=== PATIENT | male | born 1930 | race Caucasian/White ===

== ENCOUNTER 2016-07-08 20:01 | Inpatient (IN) | payer MEDICARE ==
[~2016-07-08] VITALS: Ht 188 cm; Wt 85.3 kg
[2016-07-08] MEDS ORDERED: PIP/TAZO PER PHARMACY MC PRN (20:30)
[2016-07-08] MEDS ORDERED: IV NORMAL SALINE 500ML BAG 500 ML IV ONE (20:45)
[2016-07-08] MEDS ORDERED: PIPERACILLIN/TAZOBACTAM 3.375 GM in IV NORMAL SALINE 50ML 50 ML IV ONE (21:00)
[2016-07-08] MEDS ORDERED: VANCOMYCIN 2 GM in IV NORMAL SALINE 500ML BAG 500 ML IV ONE (21:00)
--- NOTE | 2016-07-08 21:09 | PHYS DOC ---
Past Medical History Past Medical History: CHF, Dementia, Other Additional Past Medical Histor: tachycardia Past Surgical History: Other Additional Past Surgical Histo: unknown Alcohol Use: None Drug Use: None Adult General Chief Complaint Chief Complaint: WEAKNESS/GENERALIZED HPI HPI Patient is a 86 year old male who presents with lethargy, tachycardia. Patient sent from [facility] with report of increased lethargy, tachycardia, increased weakness. Patient has reportedly had intermittent tachycardia since January, for which he was recently started on metoprolol. Patient is demented and unable to contribute to history. Unable to get in contact with staff at [facility] for more information. Review of Systems Review of Systems Unable to obtain due to dementia Current Medications Current Medications Current Medications Medications (Trade) Dose Ordered Sig/Delta Start Time Stop Time Status Last Admin Dose Admin Piperacillin Sod/ Tazobactam Sod 3.375 gm/Sodium Chloride 50 ml @ 100 mls/hr 1X ONCE 07/08/16 21:00 07/08/16 21:29 DC 07/08/16 21:00 100 MLS/HR Piperacillin Sod/ Tazobactam Sod 1 each 1 each PRN DAILY PRN 07/08/16 20:30 Sodium Chloride 500 ml @ 500 mls/hr 1X ONCE 07/08/16 20:45 07/08/16 21:44 DC 07/08/16 21:22 500 MLS/HR Vancomycin HCl (Vanco Per Pharmacy) 1 each PRN DAILY PRN 07/08/16 20:30 Vancomycin HCl/ Sodium Chloride (Iv Sodium Chloride 0.9% 500ml Bag) 500 ml @ 250 mls/hr 1X ONCE 07/08/16 21:00 07/08/16 22:59 DC 07/08/16 21:00 250 MLS/HR Allergies Allergies Allergies Coded Allergies Type Severity Reaction Last Updated Verified No Known Drug Allergies 07/08/16 No Physical Exam Physical Exam Constitutional: Well developed, well nourished, non-toxic appearance HENT: Normocephalic, atraumatic, bilateral external ears normal Eyes: PERRL, EOMI, conjunctiva normal, no discharge Neck: Normal range of motion, no stridor Cardiovascular: Tachycardic, irregular rhythm, no murmur Lungs & Thorax: Bilateral breath sounds clear to auscultation Abdomen: Bowel sounds normal, soft, non-distended, no TTP; ostomy bag in place Skin: Warm, dry Extremities: No obvious deformity, trace BLE edema Neurologic: Alert and oriented to person and place only, GCS 15, CN II-XII grossly intact except for slight droop at L corner of mouth (resolves when smiling), strength intact and symmetrical throughout, sensation to light touch intact throughout Current Patient Data Vital Signs Vital Signs Date Time Temp Pulse Resp B/P Pulse Ox O2 Delivery O2 Flow Rate FiO2 07/08/16 20:02 99.7 137 18 132/76 91 Room Air 99.7 Lab Values Laboratory Tests Test 07/08/16 20:20 07/08/16 22:30 07/08/16 22:41 White Blood Count 12.1x10^3/uL (4.0-11.0) H Red Blood Count 4.04x10^6/uL (4.30-5.70) L Hemoglobin 12.5g/dL (13.0-17.5) L Hematocrit 38.8% (39.0-53.0) L Mean Corpuscular Volume 96fL (79-100) Mean Corpuscular Hemoglobin 31pg (25-35) Mean Corpuscular Hemoglobin Concent 32g/dL (31-37) Red Cell Distribution Width 15.5% (11.5-14.5) H Platelet Count 204x10^3/uL (140-400) Neutrophils (%) (Auto) 70% (31-73) Lymphocytes (%) (Auto) 14% (24-48) L Monocytes (%) (Auto) 15% (0-9) H Eosinophils (%) (Auto) 1% (0-3) Basophils (%) (Auto) 1% (0-3) Neutrophils # (Auto) 8.4x10^3uL (1.8-7.7) H Lymphocytes # (Auto) 1.6x10^3/uL (1.0-4.8) Monocytes # (Auto) 1.8x10^3/uL (0.0-1.1) H Eosinophils # (Auto) 0.1x10^3/uL (0.0-0.7) Basophils # (Auto) 0.1x10^3/uL (0.0-0.2) Sodium Level 142mmol/L (136-145) Potassium Level 4.1mmol/L (3.5-5.1) Chloride Level 106mmol/L (98-107) Carbon Dioxide Level 27mmol/L (21-32) Anion Gap 9 (6-14) Blood Urea Nitrogen 18mg/dL (8-26) Creatinine 1.3mg/dL (0.7-1.3) Estimated GFR (Cockcroft-Gault) 52.6 BUN/Creatinine Ratio 14 (6-20) Glucose Level 117mg/dL (70-99) H Lactic Acid Level 1.6mmol/L (0.4-2.0) Calcium Level 9.1mg/dL (8.5-10.1) Magnesium Level 2.1mg/dL (1.8-2.4) Total Bilirubin 0.8mg/dL (0.2-1.0) Aspartate Amino Transferase (AST) 33U/L (15-37) Alanine Aminotransferase (ALT) 15U/L (16-63) L Alkaline Phosphatase 99U/L (46-116) Troponin I Quantitative < 0.017ng/mL (0.000-0.055) RC-Vix-S-Type Natriuretic Peptide 1345pg/mL (0-449) H Total Protein 7.4g/dL (6.4-8.2) Albumin 2.7g/dL (3.4-5.0) L Albumin/Globulin Ratio 0.6 (1.0-1.7) L Thyroid Stimulating Hormone (TSH) 0.826uIU/mL (0.358-3.74) Influenza Type A Antigen Negative (NEGATIVE) Influenza Type B Antigen Negative (NEGATIVE) Urine Collection Type Unknown Urine Color Dk yellow Urine Clarity Clear Urine pH 5.5 Urine Specific [place] 1.020 Urine Protein Negativemg/dL (NEG-TRACE) Urine Glucose (UA) Negativemg/dL (NEG) Urine Ketones (Stick) Negativemg/dL (NEG) Urine Blood Trace (NEG) Urine Nitrite Negative (NEG) Urine Bilirubin Negative (NEG) Urine Urobilinogen Dipstick 1.0mg/dL (0.2 mg/dL) Urine Leukocyte Esterase Small (NEG) Urine RBC Rare/HPF (0-2) Urine WBC Occ/HPF (0-4) Urine Squamous Epithelial Cells Few/LPF Urine Bacteria 0/HPF (0-FEW) Urine Hyaline Casts Occasional/HPF Urine Mucus Mod/LPF Laboratory Tests 07/08/16 20:20 Laboratory Tests 07/08/16 20:20 EKG EKG EKG (my read): tachycardic, rate 118, normal axis, abnormal QRS, QTc 490ms, no acute ST elevation Radiology/Procedures Radiology/Procedures CXR (my read): Hazy opacity R lung base, mild cephalization Course & Med Decision Making Course & Med Decision Making Pertinent Labs and Imaging studies reviewed. (See chart for details) Patient is 86-year-old male who presents with complaint of lethargy and tachycardia. Patient demented and unable to contribute to history. Will check CT head, chest x-ray, labs to evaluate. Tachycardic and with borderline fever on exam. EKG shows possible A. fib with RVR, although he does appear regular with occasional dropped QRS. Possible Mobitz type I heart block (best seen in V1 ). I discussed this with Dr. Zepeda; no sign of infection, will try giving one 10 mg bolus of Cardizem but will not start drip. Discussed however, he does have leukocytosis as well as asymmetric chest x-ray concerning for pneumonia. Small fluid bolus and broad spectrum antibiotics ordered upon arrival. Heart rate did improve with these fluids. Discussed results with patient. Discussed with Dr. Herrera, will admit under her care for further evaluation and treatment. Will start low rate maintenance fluids; do not wish to fluid overload patient given history of CHF, and his blood pressure has been okay with normal lactic acid. Dragon Disclaimer Dragon Disclaimer This electronic medical record was generated, in whole or in part, using a voice recognition dictation system. Departure Departure Impression: Primary Impression: Pneumonia Additional Impression: Tachycardia Disposition: ADMITTED INPATIENT Admitting Physician: Other Condition: GUARDED Problem Qualifiers JOEL SMALLWOOD MD Jul 08, 2016 21:09
--- NOTE | 2016-07-08 21:20 | RAD ---
PROCEDURE CT head without contrast. HISTORY TECHNIQUE Noncontrast axial cross sectional CT scanning of the head was performed. FINDINGS There is marked diffuse cerebral and cerebellar atrophy. There is mild diffuse chronic white matter changes. There is encephalomalacia in the frontal lobes bilaterally. No acute intracranial hemorrhage or midline shift or mass-effect or hydrocephalus or extra-axial fluid collection is seen. No focal hypodense area is seen to indicate an acute infarct or edema radiographically. No skull fracture or pneumocephalus is seen. No opacification of the mastoid sinuses or the paranasal sinuses is seen. The maxillary sinuses are not completely seen in this study. 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 No acute findings. PQRS Statement: One or more of the following individualized dose reduction techniques were utilized for this study: 1. Automated exposure control. 2. Adjustment of the mA and/or kV according to patient size. 3. Use of iterative reconstruction technique. Electronically signed by: Ehsan Agosto MD (Jul 08, 2016 21:18:52)
[2016-07-08 21:40] LABS: BASO # 0.1 x10^3/uL (0.0-0.2); BASO % 1 % (0-3); EOS % 1 % (0-3); HEMATOCRIT 38.8 % (39.0-53.0); HEMOGLOBIN 12.5 g/dL (13.0-17.5); LYMPH # 1.6 x10^3/uL (1.0-4.8); LYMPH % 14 % (24-48); MEAN CORPUSCULAR HEMOGLOBIN 31 pg (25-35); MEAN CORPUSCULAR HGB CONC 32 g/dL (31-37); MEAN CORPUSCULAR VOLUME 96 fL (79-100); MONO % 15 % (0-9); NEUT % 70 % (31-73); PLATELET COUNT 204 x10^3/uL (140-400); RED BLOOD COUNT 4.04 x10^6/uL (4.30-5.70); RED CELL DISTRIBUTION WIDTH 15.5 % (11.5-14.5); WHITE BLOOD COUNT 12.1 x10^3/uL (4.0-11.0)
[2016-07-08 21:56] LABS: CALCIUM 9.1 mg/dL (8.5-10.1); CREATININE 1.3 mg/dL (0.7-1.3); GFR 52.6; POTASSIUM 4.1 mmol/L (3.5-5.1)
[2016-07-08 22:02] LABS: ALBUMIN 2.7 g/dL (3.4-5.0); ALBUMIN/GLOBULIN RATIO 0.6 (1.0-1.7); MAGNESIUM 2.1 mg/dL (1.8-2.4); TOTAL BILIRUBIN 0.8 mg/dL (0.2-1.0); TOTAL PROTEIN 7.4 g/dL (6.4-8.2)
[2016-07-08 22:49] LABS: BILIRUBIN,URINE NEGATIVE (NEG); GLUCOSE,URINE NEGATIVE (NEG); NITRITE,URINE NEGATIVE (NEG); PH,URINE 5.5; PROTEIN,URINE NEGATIVE (NEG-TRACE)
[2016-07-08 22:52] LABS: OBC FLU VALID
[2016-07-08] MEDS ORDERED: ACETAMINOPHEN 325 MG TABLET. PO PRN (23:00)
[2016-07-08] MEDS ORDERED: ONDANSETRON PF 4 MG/2 ML VIAL. IV PRN (23:00)
[2016-07-08] MEDS ORDERED: MORPHINE SULFATE 2 MG/ML DISP.SYRIN. IV PRN (23:00)
[2016-07-08 23:05] LABS: BACTERIA,URINE 0 /HPF (0-FEW); RBC,URINE RARE /HPF (0-2); SQUAMOUS EPITHELIAL CELL,UR FEW /LPF; WBC,URINE OCC /HPF (0-4)
[2016-07-09] VITALS (7 sets, daily range): BP systolic 118–176; BP diastolic 64–90
[2016-07-09] MEDS ORDERED: METO25TA4 PO (01:44)
[2016-07-09] MEDS ORDERED: AMLO5TAB2 PO (01:44)
--- NOTE | 2016-07-09 01:44 | ACF ---
Admit Criteria Forms Admit Criteria Forms Admit Criteria Forms PNEUMONIA, COMMUNITY ACQUIRED Clinical Indications for Admission to Inpatient Care ( Place 'X' for any and all applicable criteria): Admission is indicated for ANY ONE of the following (1)(2)(3): [ ]I. Hypoxemia indicated by ANY ONE of the following: [ ]a) Oxygen saturation less than 90% while breathing room air [ ]b) PO2 less than 60 mm Hg (8.0 kPa) while breathing room air [ ]c) Chronic lung disease with significant deterioration from baseline oxygenation [ ]II. Appropriate diagnostic testing and treatment unavailable in outpatient or recovery facility (eg,testing or infection control measures unavailable(10) [X ]III. Moderate-risk or high-risk category patients (Pneumonia Severity Index (PSI) class IV or V, or CURB-65 score of 3 or greater). [ ]IV. Outpatient treatment failure as indicated by ANY ONE of the following(9) : [ ]a) Failure to respond to antibiotic (eg, resistant organism) [ ]b) Clinically significant adverse effects from medication (eg, vomiting) [ ]c) Complications of pneumonia (eg, empyema, bacteremia) [ ]d) Significant worsening of comorbid cond necessitating inpatient care (eg, chronic heart failure) [ ]V. Intermediate-risk category patients (eg, PSI class III or CURB-65 score 2) who do not improve with initial therapy and observation. [ ]. Immunocompromised patients (eg, AIDS, chronic steroid use) at moderate or high risk based on clinical evaluation. [ ]VII. Complicated pleural effusions (eg, exudative, loculated) [ ]VIII.Hemodynamic instability [ ] IX. Altered mental status that is severe or persistent. [ ]X. Dehydration that is severe or persistent. [ ]XI. Bacteremia [ ]XII. Respiratory finding (eg. tachypnea) that do not respond to outpatient or observation care treatment Extended stay beyond goal length of stay may be needed for (20) [ ]a) Unclear diagnosis [ ]b) Pleural disease [ ]c) Severe pneumonia or treatment failure (25 [ ]d) Respiratory failure (anticipate invasive or noninvasive ventilatory support) [ ]e) Abnormal serum electrolytes (serum Na concentration less than 135 mEq/L (mmol/L) (32)(33) [ ]f) Clinically significant comorbid illness (eg, heart failure, atrial fibrillation with rapid heart rate, alcohol withdrawal, renal insufficiency)(34)(35) [ ]g) Comorbid acute exacerbation of COPD(36) [ ]h) Concomitant diagnosis of malignancy that may be associated with malnutrition, immunologic impairment, or bronchial obstruction. [ ]i) Concomitant altered mental status [ ]j) Culture-identified Gram-negative or antibiotic-resistant organism (eg, Pseudomonas, methicillin-resistant Staphylococcus aureus)(30) [ ]k) Healthcare-associated pneumonia The original [facility] content created by [employer] has been revised. The portions of the content which have been revised are identified through the use of italic text or in bold, and [facility] has neither reviewed nor approved the modified material. All other unmodified content is copyright [facility]. Please see references footnoted in the original [facility] edition 2016 JIE LEDESMA Jul 09, 2016 01:44
[2016-07-09] MEDS: VANCOMYCIN PER PHARMACY MC PRN ×2 (02:37→14:10)
[2016-07-09] MEDS: IV NORMAL SALINE 1000ML BAG 1,000 ML IV SCH ×2 (03:09→21:45)
[2016-07-09 04:38] LABS: BASO # 0.1 x10^3/uL (0.0-0.2); BASO % 1 % (0-3); EOS % 2 % (0-3); HEMATOCRIT 35.4 % (39.0-53.0); HEMOGLOBIN 11.7 g/dL (13.0-17.5); LYMPH % 18 % (24-48); MEAN CORPUSCULAR HEMOGLOBIN 31 pg (25-35); MEAN CORPUSCULAR HGB CONC 33 g/dL (31-37); MEAN CORPUSCULAR VOLUME 94 fL (79-100); MONO % 16 % (0-9); NEUT % 63 % (31-73); PLATELET COUNT 196 x10^3/uL (140-400); RED BLOOD COUNT 3.75 x10^6/uL (4.30-5.70); RED CELL DISTRIBUTION WIDTH 15.6 % (11.5-14.5); WHITE BLOOD COUNT 11.2 x10^3/uL (4.0-11.0)
[2016-07-09 04:52] LABS: CALCIUM 8.7 mg/dL (8.5-10.1); CREATININE 1.3 mg/dL (0.7-1.3); GFR 52.6; POTASSIUM 3.8 mmol/L (3.5-5.1)
[2016-07-09] MEDS: PIPERACILLIN/TAZOBACTAM 3.375 GM in IV NORMAL SALINE 50ML 50 ML IV SCH ×2 (06:39→12:34)
--- NOTE | 2016-07-09 08:11 | RAD ---
Indication: Generalized weakness. Altered mental status and epigastric pain. Technique: AP portable upright chest radiograph was obtained and repeated to include the lung bases. No comparison is available. Findings: Graded opacity on the right is noted. No focal airspace disease is apparent. Heart is not enlarged and there is no heart failure. There is atheromatous disease in the thoracic aorta. Leads overlie the patient. There are degenerative changes in the shoulders. Impression: Layered right pleural effusion, small to medium in size, is suspected.
--- NOTE | 2016-07-09 09:05 | EKG ---
[facility] [address] [place] [address] Test Date: 2016-07-08 Test Time: 20:10:29 Pat Name: NAVI SAWYER Department: Room: 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
[2016-07-09] MEDS ORDERED: HYDROCODONE/APAP 5/325MG TABLET. PO PRN ×2 (09:30→11:30)
[2016-07-09] MEDS ORDERED: ONDANSETRON PF 4 MG/2 ML VIAL. IV PRN ×2 (09:30→11:30)
[2016-07-09] MEDS ORDERED: ACETAMINOPHEN 325 MG TABLET. PO PRN ×3 (09:30→16:00)
[2016-07-09] MEDS ORDERED: hydrALAZINE 20 MG/ML VIAL. IVP PRN ×2 (09:30→11:30)
[2016-07-09] MEDS ORDERED: ALBUTEROL SULFATE 2.5 MG/3 ML NEBU. NEB PRN ×2 (09:30→11:30)
--- NOTE | 2016-07-09 11:24 | PDOC1 ---
History and Physical Past Medical History Past Medical History HTN ? CHF ? AFIB Family History Family History FH: HTN Family History: Other (unknow) Social History Smoke: No ALCOHOL: none Drugs: None Current Problem List Problem List Problems Medical Problems: (1) Pneumonia Status: Acute (2) Tachycardia Status: Acute Current Medications Current Medications Current Medications Medications (Trade) Dose Ordered Sig/Delta Start Time Stop Time Status Last Admin Dose Admin Acetaminophen (Tylenol) 325 mg PRN Q6HRS PRN 07/09/16 09:30 Acetaminophen 650 mg 650 mg PRN Q4HRS PRN 07/08/16 23:00 07/09/16 22:59 Acetaminophen/ Hydrocodone Bitart (Lortab 5/325) 1 tab PRN Q6HRS PRN 07/09/16 09:30 Albuterol Sulfate (Ventolin Neb Soln) 2.5 mg PRN Q4HRS PRN 07/09/16 09:30 Hydralazine HCl (Apresoline) 10 mg PRN Q4HRS PRN 07/09/16 09:30 Morphine Sulfate 2 mg 2 mg PRN Q2HR PRN 07/08/16 23:00 07/09/16 22:59 Ondansetron HCl (Zofran) 4 mg PRN Q8HRS PRN 07/09/16 09:30 Piperacillin Sod/ Tazobactam Sod 3.375 gm/Sodium Chloride 50 ml @ 100 mls/hr Q6HRS 07/09/16 06:00 07/09/16 06:39 100 MLS/HR Piperacillin Sod/ Tazobactam Sod 1 each 1 each PRN DAILY PRN 07/08/16 20:30 Sodium Chloride (Iv Sodium Chloride 0.9% 1000ml Bag) 1,000 ml @ 50 mls/hr Q20H 07/08/16 22:59 07/09/16 22:58 07/09/16 03:09 50 MLS/HR Vancomycin HCl 1 each 1X ONCE 07/10/16 20:30 07/10/16 20:31 Vancomycin HCl (Vanco Per Pharmacy) 1 each PRN DAILY PRN 07/08/16 20:30 07/09/16 02:37 1 EACH Vancomycin HCl/ Sodium Chloride (Iv Sodium Chloride 0.9% 250ml) 250 ml @ 167 mls/hr Q24H 07/09/16 21:00 Vancomycin HCl/ Sodium Chloride (Iv Sodium Chloride 0.9% 500ml Bag) 500 ml @ 250 mls/hr 1X ONCE 07/08/16 21:00 07/08/16 22:59 DC 07/08/16 21:00 250 MLS/HR Allergies Allergies Allergies Coded Allergies Type Severity Reaction Last Updated Verified No Known Drug Allergies 07/08/16 No ROS Review of System CONSTITUTIONAL: No fever or chills, decreased intake EYES: No recent changes SKIN: No rash or itching CARDIOVASCULAR: No chest pain, syncope, palpitations, or edema RESPIRATORY: No SOB or cough GASTROINTESTINAL: No nausea, vomiting or abdominal pain NEUROLOGICAL: No headaches or weakness ENDOCRINE: No cold or heat intolerance GENITOURINARY: No urgency or frequency of urination MUSCULOSKELETAL: neck pain, l LYMPHATICS: No enlarged lymph nodes PSYCHIATRIC: dementia Physical Exam Physical Exam GEN.: No apparent distress. Alert and oriented to self, weak in appearance HEENT: Head is normocephalic, atraumatic NECK: Supple. no JVD, decreased ROM, Painful LUNGS: Clear to auscultation. HEART: RRR, S1, S2 present. Peripheral pulses intact ABDOMEN: Soft, nontender. Positive bowel sounds. EXTREMITIES: Without any cyanosis. NEUROLOGIC: dementia, slow to respond, PSYCHIATRIC: Vitals Vitals Vital Signs Date Time Temp Pulse Resp B/P Pulse Ox O2 Delivery O2 Flow Rate FiO2 07/09/16 11:00 98.8 108 18 118/64 95 Room Air 98.8 07/09/16 07:00 2.0 Labs Labs Laboratory Tests Test 07/08/16 20:20 07/08/16 22:30 07/08/16 22:41 07/09/16 04:05 White Blood Count 12.1x10^3/uL (4.0-11.0) 11.2x10^3/uL (4.0-11.0) Red Blood Count 4.04x10^6/uL (4.30-5.70) 3.75x10^6/uL (4.30-5.70) Hemoglobin 12.5g/dL (13.0-17.5) 11.7g/dL (13.0-17.5) Hematocrit 38.8% (39.0-53.0) 35.4% (39.0-53.0) Mean Corpuscular Volume 96fL (79-100) 94fL (79-100) Mean Corpuscular Hemoglobin 31pg (25-35) 31pg (25-35) Mean Corpuscular Hemoglobin Concent 32g/dL (31-37) 33g/dL (31-37) Red Cell Distribution Width 15.5% (11.5-14.5) 15.6% (11.5-14.5) Platelet Count 204x10^3/uL (140-400) 196x10^3/uL (140-400) Neutrophils (%) (Auto) 70% (31-73) 63% (31-73) Lymphocytes (%) (Auto) 14% (24-48) 18% (24-48) Monocytes (%) (Auto) 15% (0-9) 16% (0-9) Eosinophils (%) (Auto) 1% (0-3) 2% (0-3) Basophils (%) (Auto) 1% (0-3) 1% (0-3) Neutrophils # (Auto) 8.4x10^3uL (1.8-7.7) 7.1x10^3uL (1.8-7.7) Lymphocytes # (Auto) 1.6x10^3/uL (1.0-4.8) 2.0x10^3/uL (1.0-4.8) Monocytes # (Auto) 1.8x10^3/uL (0.0-1.1) 1.7x10^3/uL (0.0-1.1) Eosinophils # (Auto) 0.1x10^3/uL (0.0-0.7) 0.3x10^3/uL (0.0-0.7) Basophils # (Auto) 0.1x10^3/uL (0.0-0.2) 0.1x10^3/uL (0.0-0.2) Sodium Level 142mmol/L (136-145) 144mmol/L (136-145) Potassium Level 4.1mmol/L (3.5-5.1) 3.8mmol/L (3.5-5.1) Chloride Level 106mmol/L (98-107) 107mmol/L (98-107) Carbon Dioxide Level 27mmol/L (21-32) 29mmol/L (21-32) Anion Gap 9 (6-14) 8 (6-14) Blood Urea Nitrogen 18mg/dL (8-26) 17mg/dL (8-26) Creatinine 1.3mg/dL (0.7-1.3) 1.3mg/dL (0.7-1.3) Estimated GFR (Cockcroft-Gault) 52.6 52.6 BUN/Creatinine Ratio 14 (6-20) Glucose Level 117mg/dL (70-99) 110mg/dL (70-99) Lactic Acid Level 1.6mmol/L (0.4-2.0) Calcium Level 9.1mg/dL (8.5-10.1) 8.7mg/dL (8.5-10.1) Magnesium Level 2.1mg/dL (1.8-2.4) Total Bilirubin 0.8mg/dL (0.2-1.0) Aspartate Amino Transf (AST/SGOT) 33U/L (15-37) Alanine Aminotransferase (ALT/SGPT) 15U/L (16-63) Alkaline Phosphatase 99U/L (46-116) Troponin I Quantitative < 0.017ng/mL (0.000-0.055) RW-Wgn-R-Type Natriuretic Peptide 1345pg/mL (0-449) Total Protein 7.4g/dL (6.4-8.2) Albumin 2.7g/dL (3.4-5.0) Albumin/Globulin Ratio 0.6 (1.0-1.7) Thyroid Stimulating Hormone (TSH) 0.826uIU/mL (0.358-3.74) Influenza Type A Antigen Negative (NEGATIVE) Influenza Type B Antigen Negative (NEGATIVE) Urine Collection Type Unknown Urine Color Dk yellow Urine Clarity Clear Urine pH 5.5 Urine Specific [place] 1.020 Urine Protein Negativemg/dL (NEG-TRACE) Urine Glucose (UA) Negativemg/dL (NEG) Urine Ketones (Stick) Negativemg/dL (NEG) Urine Blood Trace (NEG) Urine Nitrite Negative (NEG) Urine Bilirubin Negative (NEG) Urine Urobilinogen Dipstick 1.0mg/dL (0.2 mg/dL) Urine Leukocyte Esterase Small (NEG) Urine RBC Rare/HPF (0-2) Urine WBC Occ/HPF (0-4) Urine Squamous Epithelial Cells Few/LPF Urine Bacteria 0/HPF (0-FEW) Urine Hyaline Casts Occasional/HPF Urine Mucus Mod/LPF Laboratory Tests Test 07/08/16 20:20 07/08/16 22:30 07/08/16 22:41 07/09/16 04:05 White Blood Count 12.1x10^3/uL (4.0-11.0) 11.2x10^3/uL (4.0-11.0) Red Blood Count 4.04x10^6/uL (4.30-5.70) 3.75x10^6/uL (4.30-5.70) Hemoglobin 12.5g/dL (13.0-17.5) 11.7g/dL (13.0-17.5) Hematocrit 38.8% (39.0-53.0) 35.4% (39.0-53.0) Mean Corpuscular Volume 96fL (79-100) 94fL (79-100) Mean Corpuscular Hemoglobin 31pg (25-35) 31pg (25-35) Mean Corpuscular Hemoglobin Concent 32g/dL (31-37) 33g/dL (31-37) Red Cell Distribution Width 15.5% (11.5-14.5) 15.6% (11.5-14.5) Platelet Count 204x10^3/uL (140-400) 196x10^3/uL (140-400) Neutrophils (%) (Auto) 70% (31-73) 63% (31-73) Lymphocytes (%) (Auto) 14% (24-48) 18% (24-48) Monocytes (%) (Auto) 15% (0-9) 16% (0-9) Eosinophils (%) (Auto) 1% (0-3) 2% (0-3) Basophils (%) (Auto) 1% (0-3) 1% (0-3) Neutrophils # (Auto) 8.4x10^3uL (1.8-7.7) 7.1x10^3uL (1.8-7.7) Lymphocytes # (Auto) 1.6x10^3/uL (1.0-4.8) 2.0x10^3/uL (1.0-4.8) Monocytes # (Auto) 1.8x10^3/uL (0.0-1.1) 1.7x10^3/uL (0.0-1.1) Eosinophils # (Auto) 0.1x10^3/uL (0.0-0.7) 0.3x10^3/uL (0.0-0.7) Basophils # (Auto) 0.1x10^3/uL (0.0-0.2) 0.1x10^3/uL (0.0-0.2) Sodium Level 142mmol/L (136-145) 144mmol/L (136-145) Potassium Level 4.1mmol/L (3.5-5.1) 3.8mmol/L (3.5-5.1) Chloride Level 106mmol/L (98-107) 107mmol/L (98-107) Carbon Dioxide Level 27mmol/L (21-32) 29mmol/L (21-32) Anion Gap 9 (6-14) 8 (6-14) Blood Urea Nitrogen 18mg/dL (8-26) 17mg/dL (8-26) Creatinine 1.3mg/dL (0.7-1.3) 1.3mg/dL (0.7-1.3) Estimated GFR (Cockcroft-Gault) 52.6 52.6 BUN/Creatinine Ratio 14 (6-20) Glucose Level 117mg/dL (70-99) 110mg/dL (70-99) Lactic Acid Level 1.6mmol/L (0.4-2.0) Calcium Level 9.1mg/dL (8.5-10.1) 8.7mg/dL (8.5-10.1) Magnesium Level 2.1mg/dL (1.8-2.4) Total Bilirubin 0.8mg/dL (0.2-1.0) Aspartate Amino Transf (AST/SGOT) 33U/L (15-37) Alanine Aminotransferase (ALT/SGPT) 15U/L (16-63) Alkaline Phosphatase 99U/L (46-116) Troponin I Quantitative < 0.017ng/mL (0.000-0.055) JQ-Gsf-D-Type Natriuretic Peptide 1345pg/mL (0-449) Total Protein 7.4g/dL (6.4-8.2) Albumin 2.7g/dL (3.4-5.0) Albumin/Globulin Ratio 0.6 (1.0-1.7) Thyroid Stimulating Hormone (TSH) 0.826uIU/mL (0.358-3.74) Influenza Type A Antigen Negative (NEGATIVE) Influenza Type B Antigen Negative (NEGATIVE) Urine Collection Type Unknown Urine Color Dk yellow Urine Clarity Clear Urine pH 5.5 Urine Specific [place] 1.020 Urine Protein Negativemg/dL (NEG-TRACE) Urine Glucose (UA) Negativemg/dL (NEG) Urine Ketones (Stick) Negativemg/dL (NEG) Urine Blood Trace (NEG) Urine Nitrite Negative (NEG) Urine Bilirubin Negative (NEG) Urine Urobilinogen Dipstick 1.0mg/dL (0.2 mg/dL) Urine Leukocyte Esterase Small (NEG) Urine RBC Rare/HPF (0-2) Urine WBC Occ/HPF (0-4) Urine Squamous Epithelial Cells Few/LPF Urine Bacteria 0/HPF (0-FEW) Urine Hyaline Casts Occasional/HPF Urine Mucus Mod/LPF VTE Prophylaxis Ordered VTE Prophylaxis Devices: No VTE Pharmacological Prophylaxi: No CHEN AIKEN MD Jul 09, 2016 11:24
[2016-07-09] MEDS ORDERED: CYCLOBENZAPRINE 10 MG TABLET. PO PRN (11:30)
[2016-07-09] MEDS ORDERED: AMLODIPINE BESYLATE 5 MG TABLET PO SCH (12:00)
--- NOTE | 2016-07-09 13:48 | PDOC2 ---
CARDIOLOGY CONSULT NOTE CHEIF COMPLAINT: Mental status changes Problems: HPI: Patient is a 86-year-old gentleman who has been admitted to the hospital in the setting of mental status changes. He lives at a [facility]. History is limited due to the patient's mental state. He presently denies any significant chest pain or dyspnea. Family apparently had reported that he has a prior history of proximal atrial fibrillation. Upon arrival in the ER yesterday he was noted to be tachycardic and had some proximal atrial fibrillation. He was admitted to the hospital with possibility of pneumonia and/or sepsis given his tachycardia and elevated white blood cell count. His chest x-ray was unrevealing. Overnight he's not had any significant arrhythmias. He continues to be in stable heart rhythm. PMHX: Presumed afib HTN Failure to thrive SOCHX: Lives in [facility] FAMHX: Non-contributory CURRENT MEDS: Current Medications Medications (Trade) Dose Ordered Sig/Delta Start Time Stop Time Status Last Admin Dose Admin Acetaminophen (Tylenol) 325 mg PRN Q6HRS PRN 07/09/16 11:30 07/09/16 11:35 DC Acetaminophen 650 mg 650 mg PRN Q4HRS PRN 07/08/16 23:00 07/09/16 11:33 DC Acetaminophen/ Hydrocodone Bitart (Lortab 5/325) 1 tab PRN Q6HRS PRN 07/09/16 11:30 Albuterol Sulfate (Ventolin Neb Soln) 2.5 mg PRN Q4HRS PRN 07/09/16 11:30 07/09/16 11:36 DC Amlodipine Besylate (Norvasc) 5 mg DAILY 07/10/16 09:00 UNV Cyclobenzaprine HCl (Flexeril) 5 mg PRN Q6HRS PRN 07/09/16 11:30 Hydralazine HCl (Apresoline) 10 mg PRN Q4HRS PRN 07/09/16 11:30 Metoprolol Tartrate (Lopressor) 25 mg DAILY 07/10/16 09:00 UNV Morphine Sulfate 2 mg 2 mg PRN Q2HR PRN 07/08/16 23:00 07/09/16 22:59 Ondansetron HCl (Zofran) 4 mg PRN Q8HRS PRN 07/09/16 11:30 07/09/16 11:35 DC Piperacillin Sod/ Tazobactam Sod 3.375 gm/Sodium Chloride 50 ml @ 100 mls/hr Q6HRS 07/09/16 06:00 07/09/16 12:34 100 MLS/HR Piperacillin Sod/ Tazobactam Sod 1 each 1 each PRN DAILY PRN 07/08/16 20:30 Sodium Chloride (Iv Sodium Chloride 0.9% 1000ml Bag) 1,000 ml @ 50 mls/hr Q20H 07/08/16 22:59 07/09/16 22:58 07/09/16 03:09 50 MLS/HR Vancomycin HCl 1 each 1X ONCE 07/10/16 20:30 07/10/16 20:31 Vancomycin HCl (Vanco Per Pharmacy) 1 each PRN DAILY PRN 07/08/16 20:30 07/09/16 02:37 1 EACH Vancomycin HCl/ Sodium Chloride (Iv Sodium Chloride 0.9% 250ml) 250 ml @ 167 mls/hr Q24H 07/09/16 21:00 Vancomycin HCl/ Sodium Chloride (Iv Sodium Chloride 0.9% 500ml Bag) 500 ml @ 250 mls/hr 1X ONCE 07/08/16 21:00 07/08/16 22:59 DC 07/08/16 21:00 250 MLS/HR ALLERGIES: Allergies Coded Allergies Type Severity Reaction Last Updated Verified No Known Drug Allergies 07/08/16 No ROS: Unable to obtain due to patients mental state PHYSICAL EXAM: Vital Signs: Vital Signs Date Time Temp Pulse Resp B/P Pulse Ox O2 Delivery O2 Flow Rate FiO2 07/09/16 11:00 98.8 108 18 118/64 95 Room Air 98.8 07/09/16 07:00 2.0 I & O Intake and Output 07/09/16 07:00 Intake Total 0 ml Balance 0 ml Intake Oral 0 ml Physical Exam: In general he is alert and oriented to self. Head and neck exam is unremarkable Heart irregularly irregular without any murmurs rubs gallops Lungs bibasilar rhonchi Abdomen soft nontender nondistended Extremities no clubbing cyanosis or edema. Muscular skeletal no trauma DIAGNOSTIC TESTING: Troponin negative 1. BNP minimally elevated. Lab Laboratory Tests Test 07/08/16 20:20 07/08/16 22:30 07/08/16 22:41 07/09/16 04:05 White Blood Count 12.1x10^3/uL (4.0-11.0) H 11.2x10^3/uL (4.0-11.0) H Red Blood Count 4.04x10^6/uL (4.30-5.70) L 3.75x10^6/uL (4.30-5.70) L Hemoglobin 12.5g/dL (13.0-17.5) L 11.7g/dL (13.0-17.5) L Hematocrit 38.8% (39.0-53.0) L 35.4% (39.0-53.0) L Mean Corpuscular Volume 96fL (79-100) 94fL (79-100) Mean Corpuscular Hemoglobin 31pg (25-35) 31pg (25-35) Mean Corpuscular Hemoglobin Concent 32g/dL (31-37) 33g/dL (31-37) Red Cell Distribution Width 15.5% (11.5-14.5) H 15.6% (11.5-14.5) H Platelet Count 204x10^3/uL (140-400) 196x10^3/uL (140-400) Neutrophils (%) (Auto) 70% (31-73) 63% (31-73) Lymphocytes (%) (Auto) 14% (24-48) L 18% (24-48) L Monocytes (%) (Auto) 15% (0-9) H 16% (0-9) H Eosinophils (%) (Auto) 1% (0-3) 2% (0-3) Basophils (%) (Auto) 1% (0-3) 1% (0-3) Neutrophils # (Auto) 8.4x10^3uL (1.8-7.7) H 7.1x10^3uL (1.8-7.7) Lymphocytes # (Auto) 1.6x10^3/uL (1.0-4.8) 2.0x10^3/uL (1.0-4.8) Monocytes # (Auto) 1.8x10^3/uL (0.0-1.1) H 1.7x10^3/uL (0.0-1.1) H Eosinophils # (Auto) 0.1x10^3/uL (0.0-0.7) 0.3x10^3/uL (0.0-0.7) Basophils # (Auto) 0.1x10^3/uL (0.0-0.2) 0.1x10^3/uL (0.0-0.2) Sodium Level 142mmol/L (136-145) 144mmol/L (136-145) Potassium Level 4.1mmol/L (3.5-5.1) 3.8mmol/L (3.5-5.1) Chloride Level 106mmol/L (98-107) 107mmol/L (98-107) Carbon Dioxide Level 27mmol/L (21-32) 29mmol/L (21-32) Anion Gap 9 (6-14) 8 (6-14) Blood Urea Nitrogen 18mg/dL (8-26) 17mg/dL (8-26) Creatinine 1.3mg/dL (0.7-1.3) 1.3mg/dL (0.7-1.3) Estimated GFR (Cockcroft-Gault) 52.6 52.6 BUN/Creatinine Ratio 14 (6-20) Glucose Level 117mg/dL (70-99) H 110mg/dL (70-99) H Lactic Acid Level 1.6mmol/L (0.4-2.0) Calcium Level 9.1mg/dL (8.5-10.1) 8.7mg/dL (8.5-10.1) Total Bilirubin 0.8mg/dL (0.2-1.0) Aspartate Amino Transf (AST/SGOT) 33U/L (15-37) Alkaline Phosphatase 99U/L (46-116) Total Protein 7.4g/dL (6.4-8.2) Albumin 2.7g/dL (3.4-5.0) L Albumin/Globulin Ratio 0.6 (1.0-1.7) L Thyroid Stimulating Hormone (TSH) 0.826uIU/mL (0.358-3.74) Influenza Type A Antigen Negative (NEGATIVE) Influenza Type B Antigen Negative (NEGATIVE) Urine Collection Type Unknown Urine Color Dk yellow Urine Clarity Clear Urine pH 5.5 Urine Specific [place] 1.020 Urine Protein Negativemg/dL (NEG-TRACE) Urine Glucose (UA) Negativemg/dL (NEG) Urine Ketones (Stick) Negativemg/dL (NEG) Urine Blood Trace (NEG) Urine Nitrite Negative (NEG) Urine Bilirubin Negative (NEG) Urine Urobilinogen Dipstick 1.0mg/dL (0.2 mg/dL) Urine Leukocyte Esterase Small (NEG) Urine RBC Rare/HPF (0-2) Urine WBC Occ/HPF (0-4) Urine Squamous Epithelial Cells Few/LPF Urine Bacteria 0/HPF (0-FEW) Urine Hyaline Casts Occasional/HPF Urine Mucus Mod/LPF ASSESSMENT: 1. Rate controlled atrial fibrillation 2. Hypertension 3. No significant heart failure by exam. PLAN: 1. At this present time the patient does not have any obvious cardiac sources of dyspnea. Elevated heart rate has been noted. Suspect this may be secondary. Continue home medications. No other aggressive measures necessary at this time. We will follow along closely. Unclear if patient has been on anticoagulation at the nursing facility. We will discuss with family. Thank you for this consultation. PETER PALMER MD Jul 09, 2016 13:48
[2016-07-09] MEDS ORDERED: ALPRAZOLAM 0.25 MG TABLET PO PRN (16:00)
[2016-07-09] MEDS ORDERED: FAMO20TA5 PO (16:13)
[2016-07-09] MEDS ORDERED: DOCU-27 PO (16:13)
[2016-07-09] MEDS ORDERED: CHOL10003 PO (16:13)
[2016-07-09] MEDS ORDERED: LACT1CAP24 PO (16:13)
[2016-07-09] MEDS ORDERED: ALPR0.25 PO (16:13)
[2016-07-09] MEDS ORDERED: DONE23TA PO (16:13)
[2016-07-09] MEDS ORDERED: ACET325T21 PO (16:13)
[2016-07-09] MEDS ORDERED: SERT50TA PO (16:13)
[2016-07-09] MEDS ORDERED: MELA3TAB PO (16:13)
[2016-07-09] MEDS ORDERED: MEMA28CA PO (16:13)
[2016-07-09] MEDS ORDERED: ESCI10TA PO (16:13)
[2016-07-09] MEDS ORDERED: POTA10CA PO (16:13)
[2016-07-09] MEDS ORDERED: TRIA80OI TP (16:13)
[2016-07-09] MEDS ORDERED: DOXY100C14 PO (16:13)
[2016-07-09] MEDS ORDERED: TAMS0.4C2 PO (16:13)
--- NOTE | 2016-07-09 17:25 | EKG ---
[facility] [address] [place] [address] Test Date: 2016-07-09 Test Time: 16:18:21 Pat Name: NAVI SAWYER Department: Room: 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
[2016-07-09] MEDS: METOPROLOL TART IMMED RELEASE 25 MG TABLET PO SCH (17:35)
[2016-07-09] MEDS: AMLODIPINE BESYLATE 5 MG TABLET PO SCH (17:35)
--- NOTE | 2016-07-09 20:17 | HP ---
ADMIT DATE: 07/09/2016 CHIEF COMPLAINT: Mental status change. HISTORY OF PRESENT ILLNESS: An 86-year-old male patient with history of questionable AFib and hypertension brought to the hospital from detention for decreased mental state; however, patient has history of dementia, family is not able to confirm his decreased mental status. As pre the family, he is at his baseline; however, he has been weak lately and not eating well. In the ER, the patient noted to have some tachycardia and he admitted to the hospital for questionable pneumonia and cardiology consultation. At the time of my examination this morning, the patient denies any symptoms. Family members son and [id number] at bedside, they were notified in the past that he was treated with some antibiotics lately for questionable pneumonia. However, today he is complaining of some neck pain and decreased range of motion and also his appetite and oral intake is less. The patient has baseline dementia, which has been also most at his baseline status. PAST MEDICAL HISTORY AND REVIEW OF SYSTEM: Please see my electronic H and P. ASSESSMENT: 1. Severe dehydration. 2. Decreased oral intake, failure to thrive. 3. Hypertension. 4. Atrial fibrillation, currently rate controlled. PLAN: 1. He was started on Zosyn and vancomycin in the ER. I did stop all his antibiotics and started him on Augmentin at this time for completion of pneumonia diagnosis, which was diagnosed prior to arrival. 2. Mild IV hydration. 3. Home medications resumed. He was on metoprolol 25 b.i.d. 4. Currently rate has been controlled. 5. Start Flexeril for neck pain. 6. Physical therapy and occupational therapy. 7. Cardiology has been consulted. 8. I did not see any signs of active infection. His urinalysis appears to be normal. 9. Supportive care. 10. Deep venous thrombosis prophylaxis. CHEN AIKEN MD DR: SANDI/daniel JOB#: [id number] / [id number] BERNYD
[2016-07-09] MEDS ORDERED: VANCOMYCIN 1.25 GM in IV NORMAL SALINE 250ML 250 ML IV SCH (21:00)
[2016-07-09] MEDS ORDERED: DOXYCYCLINE MONOHYDRATE 100 MG PO SCH (21:00)
[2016-07-09] MEDS ORDERED: NON FORMULARY ITEM (Melatonin 3 MG) PO SCH (21:00)
[2016-07-09] MEDS: AMOXICILLIN/K CLAV 875/125MG TABLET. PO SCH (21:44)
[2016-07-09] MEDS: SERTRALINE 50 MG TABLET. PO SCH (21:44)
[2016-07-09] MEDS: ENOXAPARIN 40 MG/0.4 ML SYRINGE. SQ SCH (21:45)
[2016-07-09] MEDS: MEMANTINE 10 MG TABLET. PO SCH (21:45)
[2016-07-09] MEDS: FAMOTIDINE 20 MG TABLET. PO SCH (21:45)
[2016-07-09] MEDS: TRIAMCINOLONE ACETONIDE 0.1% TOPICAL CREAM 15GM TUBE. TP SCH (21:45)
[2016-07-09] MEDS: DONEPEZIL HCL 10 MG TABLET. PO SCH (21:45)
[2016-07-09] MEDS: DOCUSATE SODIUM 100 MG CAPSULE PO SCH (21:45)
[2016-07-10 03:00] VITALS: BP 130/83
[2016-07-10 04:27] LABS: BASO # 0.1 x10^3/uL (0.0-0.2); BASO % 1 % (0-3); EOS % 2 % (0-3); HEMATOCRIT 35.1 % (39.0-53.0); HEMOGLOBIN 11.8 g/dL (13.0-17.5); LYMPH # 1.8 x10^3/uL (1.0-4.8); LYMPH % 17 % (24-48); MEAN CORPUSCULAR HEMOGLOBIN 32 pg (25-35); MEAN CORPUSCULAR HGB CONC 34 g/dL (31-37); MEAN CORPUSCULAR VOLUME 94 fL (79-100); MONO % 13 % (0-9); NEUT % 68 % (31-73); PLATELET COUNT 195 x10^3/uL (140-400); RED BLOOD COUNT 3.72 x10^6/uL (4.30-5.70); RED CELL DISTRIBUTION WIDTH 15.4 % (11.5-14.5); WHITE BLOOD COUNT 10.8 x10^3/uL (4.0-11.0)
[2016-07-10 04:46] LABS: CALCIUM 8.9 mg/dL (8.5-10.1); CREATININE 1.2 mg/dL (0.7-1.3); GFR 57.7; POTASSIUM 3.9 mmol/L (3.5-5.1)
[2016-07-10 07:00] VITALS: BP 126/62
--- NOTE | 2016-07-10 07:30 | PDOC ---
PROGRESS NOTES Chief Complaint Chief Complaint a/p 1. Severe dehydration. 2. Decreased oral intake, failure to thrive. 3. Hypertension. 4. Atrial fibrillation, currently rate controlled. 5. Neck pain possible due to spasm 6. Dementia Plan Flexeril iv hydration Increase beta elisha if HR not controlled. encourage oral intake cardiology following PT/OT anticipated DC in am Augmentin Vitals Vitals Vital Signs Date Time Temp Pulse Resp B/P Pulse Ox O2 Delivery O2 Flow Rate FiO2 07/10/16 03:00 97.9 125 20 130/83 93 Room Air 97.9 07/09/16 14:54 2.0 Physical Exam General: Alert Heart: Normal S1, Normal S2 Lungs: Clear Abdomen: Normal bowel sounds, Soft Labs LABS Laboratory Tests Test 07/10/16 03:20 White Blood Count 10.8x10^3/uL (4.0-11.0) Red Blood Count 3.72x10^6/uL (4.30-5.70) Hemoglobin 11.8g/dL (13.0-17.5) Hematocrit 35.1% (39.0-53.0) Mean Corpuscular Volume 94fL (79-100) Mean Corpuscular Hemoglobin 32pg (25-35) Mean Corpuscular Hemoglobin Concent 34g/dL (31-37) Red Cell Distribution Width 15.4% (11.5-14.5) Platelet Count 195x10^3/uL (140-400) Neutrophils (%) (Auto) 68% (31-73) Lymphocytes (%) (Auto) 17% (24-48) Monocytes (%) (Auto) 13% (0-9) Eosinophils (%) (Auto) 2% (0-3) Basophils (%) (Auto) 1% (0-3) Neutrophils # (Auto) 7.3x10^3uL (1.8-7.7) Lymphocytes # (Auto) 1.8x10^3/uL (1.0-4.8) Monocytes # (Auto) 1.4x10^3/uL (0.0-1.1) Eosinophils # (Auto) 0.2x10^3/uL (0.0-0.7) Basophils # (Auto) 0.1x10^3/uL (0.0-0.2) Sodium Level 143mmol/L (136-145) Potassium Level 3.9mmol/L (3.5-5.1) Chloride Level 107mmol/L (98-107) Carbon Dioxide Level 26mmol/L (21-32) Anion Gap 10 (6-14) Blood Urea Nitrogen 16mg/dL (8-26) Creatinine 1.2mg/dL (0.7-1.3) Estimated GFR (Cockcroft-Gault) 57.7 Glucose Level 98mg/dL (70-99) Calcium Level 8.9mg/dL (8.5-10.1) Assessment and Plan Assessmemt and Plan Problems Medical Problems: (1) Pneumonia Status: Acute (2) Tachycardia Status: Acute Problems: Comment Review of Relevant I have reviewed the following items donald (where applicable) has been applied. Labs Laboratory Tests Test 07/08/16 20:20 07/08/16 22:30 07/08/16 22:41 07/09/16 04:05 White Blood Count 12.1x10^3/uL (4.0-11.0) 11.2x10^3/uL (4.0-11.0) Red Blood Count 4.04x10^6/uL (4.30-5.70) 3.75x10^6/uL (4.30-5.70) Hemoglobin 12.5g/dL (13.0-17.5) 11.7g/dL (13.0-17.5) Hematocrit 38.8% (39.0-53.0) 35.4% (39.0-53.0) Mean Corpuscular Volume 96fL (79-100) 94fL (79-100) Mean Corpuscular Hemoglobin 31pg (25-35) 31pg (25-35) Mean Corpuscular Hemoglobin Concent 32g/dL (31-37) 33g/dL (31-37) Red Cell Distribution Width 15.5% (11.5-14.5) 15.6% (11.5-14.5) Platelet Count 204x10^3/uL (140-400) 196x10^3/uL (140-400) Neutrophils (%) (Auto) 70% (31-73) 63% (31-73) Lymphocytes (%) (Auto) 14% (24-48) 18% (24-48) Monocytes (%) (Auto) 15% (0-9) 16% (0-9) Eosinophils (%) (Auto) 1% (0-3) 2% (0-3) Basophils (%) (Auto) 1% (0-3) 1% (0-3) Neutrophils # (Auto) 8.4x10^3uL (1.8-7.7) 7.1x10^3uL (1.8-7.7) Lymphocytes # (Auto) 1.6x10^3/uL (1.0-4.8) 2.0x10^3/uL (1.0-4.8) Monocytes # (Auto) 1.8x10^3/uL (0.0-1.1) 1.7x10^3/uL (0.0-1.1) Eosinophils # (Auto) 0.1x10^3/uL (0.0-0.7) 0.3x10^3/uL (0.0-0.7) Basophils # (Auto) 0.1x10^3/uL (0.0-0.2) 0.1x10^3/uL (0.0-0.2) Sodium Level 142mmol/L (136-145) 144mmol/L (136-145) Potassium Level 4.1mmol/L (3.5-5.1) 3.8mmol/L (3.5-5.1) Chloride Level 106mmol/L (98-107) 107mmol/L (98-107) Carbon Dioxide Level 27mmol/L (21-32) 29mmol/L (21-32) Anion Gap 9 (6-14) 8 (6-14) Blood Urea Nitrogen 18mg/dL (8-26) 17mg/dL (8-26) Creatinine 1.3mg/dL (0.7-1.3) 1.3mg/dL (0.7-1.3) Estimated GFR (Cockcroft-Gault) 52.6 52.6 BUN/Creatinine Ratio 14 (6-20) Glucose Level 117mg/dL (70-99) 110mg/dL (70-99) Lactic Acid Level 1.6mmol/L (0.4-2.0) Calcium Level 9.1mg/dL (8.5-10.1) 8.7mg/dL (8.5-10.1) Magnesium Level 2.1mg/dL (1.8-2.4) Total Bilirubin 0.8mg/dL (0.2-1.0) Aspartate Amino Transf (AST/SGOT) 33U/L (15-37) Alanine Aminotransferase (ALT/SGPT) 15U/L (16-63) Alkaline Phosphatase 99U/L (46-116) Troponin I Quantitative < 0.017ng/mL (0.000-0.055) DK-Gfb-C-Type Natriuretic Peptide 1345pg/mL (0-449) Total Protein 7.4g/dL (6.4-8.2) Albumin 2.7g/dL (3.4-5.0) Albumin/Globulin Ratio 0.6 (1.0-1.7) Thyroid Stimulating Hormone (TSH) 0.826uIU/mL (0.358-3.74) Influenza Type A Antigen Negative (NEGATIVE) Influenza Type B Antigen Negative (NEGATIVE) Urine Collection Type Unknown Urine Color Dk yellow Urine Clarity Clear Urine pH 5.5 Urine Specific [place] 1.020 Urine Protein Negativemg/dL (NEG-TRACE) Urine Glucose (UA) Negativemg/dL (NEG) Urine Ketones (Stick) Negativemg/dL (NEG) Urine Blood Trace (NEG) Urine Nitrite Negative (NEG) Urine Bilirubin Negative (NEG) Urine Urobilinogen Dipstick 1.0mg/dL (0.2 mg/dL) Urine Leukocyte Esterase Small (NEG) Urine RBC Rare/HPF (0-2) Urine WBC Occ/HPF (0-4) Urine Squamous Epithelial Cells Few/LPF Urine Bacteria 0/HPF (0-FEW) Urine Hyaline Casts Occasional/HPF Urine Mucus Mod/LPF Test 07/10/16 03:20 White Blood Count 10.8x10^3/uL (4.0-11.0) Red Blood Count 3.72x10^6/uL (4.30-5.70) Hemoglobin 11.8g/dL (13.0-17.5) Hematocrit 35.1% (39.0-53.0) Mean Corpuscular Volume 94fL (79-100) Mean Corpuscular Hemoglobin 32pg (25-35) Mean Corpuscular Hemoglobin Concent 34g/dL (31-37) Red Cell Distribution Width 15.4% (11.5-14.5) Platelet Count 195x10^3/uL (140-400) Neutrophils (%) (Auto) 68% (31-73) Lymphocytes (%) (Auto) 17% (24-48) Monocytes (%) (Auto) 13% (0-9) Eosinophils (%) (Auto) 2% (0-3) Basophils (%) (Auto) 1% (0-3) Neutrophils # (Auto) 7.3x10^3uL (1.8-7.7) Lymphocytes # (Auto) 1.8x10^3/uL (1.0-4.8) Monocytes # (Auto) 1.4x10^3/uL (0.0-1.1) Eosinophils # (Auto) 0.2x10^3/uL (0.0-0.7) Basophils # (Auto) 0.1x10^3/uL (0.0-0.2) Sodium Level 143mmol/L (136-145) Potassium Level 3.9mmol/L (3.5-5.1) Chloride Level 107mmol/L (98-107) Carbon Dioxide Level 26mmol/L (21-32) Anion Gap 10 (6-14) Blood Urea Nitrogen 16mg/dL (8-26) Creatinine 1.2mg/dL (0.7-1.3) Estimated GFR (Cockcroft-Gault) 57.7 Glucose Level 98mg/dL (70-99) Calcium Level 8.9mg/dL (8.5-10.1) Laboratory Tests Test 07/10/16 03:20 White Blood Count 10.8x10^3/uL (4.0-11.0) Red Blood Count 3.72x10^6/uL (4.30-5.70) Hemoglobin 11.8g/dL (13.0-17.5) Hematocrit 35.1% (39.0-53.0) Mean Corpuscular Volume 94fL (79-100) Mean Corpuscular Hemoglobin 32pg (25-35) Mean Corpuscular Hemoglobin Concent 34g/dL (31-37) Red Cell Distribution Width 15.4% (11.5-14.5) Platelet Count 195x10^3/uL (140-400) Neutrophils (%) (Auto) 68% (31-73) Lymphocytes (%) (Auto) 17% (24-48) Monocytes (%) (Auto) 13% (0-9) Eosinophils (%) (Auto) 2% (0-3) Basophils (%) (Auto) 1% (0-3) Neutrophils # (Auto) 7.3x10^3uL (1.8-7.7) Lymphocytes # (Auto) 1.8x10^3/uL (1.0-4.8) Monocytes # (Auto) 1.4x10^3/uL (0.0-1.1) Eosinophils # (Auto) 0.2x10^3/uL (0.0-0.7) Basophils # (Auto) 0.1x10^3/uL (0.0-0.2) Sodium Level 143mmol/L (136-145) Potassium Level 3.9mmol/L (3.5-5.1) Chloride Level 107mmol/L (98-107) Carbon Dioxide Level 26mmol/L (21-32) Anion Gap 10 (6-14) Blood Urea Nitrogen 16mg/dL (8-26) Creatinine 1.2mg/dL (0.7-1.3) Estimated GFR (Cockcroft-Gault) 57.7 Glucose Level 98mg/dL (70-99) Calcium Level 8.9mg/dL (8.5-10.1) Microbiology 07/08/16 Blood Culture - Preliminary, Resulted NO GROWTH AFTER 1 DAY 07/08/16 Urine Culture - Preliminary, Resulted 07/08/16 Urine Culture Result 1 (JULIET) - Preliminary, Resulted Medications Current Medications Vancomycin HCl (Vanco Per Pharmacy) 1 each PRN DAILY PRN MC SEE COMMENTS Last administered on 07/09/16 14:10; Start 07/08/16 at 20:30; Stop 07/09/16 at 17:10 ; Status DC Piperacillin Sod/ Tazobactam Sod 1 each 1 each PRN DAILY PRN MC SEE COMMENTS; Start 07/08/16 at 20:30; Stop 07/09/16 at 16:57; Status DC Sodium Chloride 500 ml @ 500 mls/hr 1X ONCE IV Last administered on t 21:22; Start 07/08/16 at 20:45; Stop 07/08/16 at 21:44; Status DC Piperacillin Sod/ Tazobactam Sod 3.375 gm/Sodium Chloride 50 ml @ 100 mls/hr 1X ONCE IV Last administered on 07/08/16 21:00; Start 07/08/16 at 21:00; Stop 07/09/16 at 15:38; Status DC Vancomycin HCl/ Sodium Chloride (Iv Sodium Chloride 0.9% 500ml Bag) 500 ml @ 250 mls/hr 1X ONCE IV Last administered on 07/08/16 21:00; Start 07/08/16 at 21:00; Stop 07/09/16 at 15:38; Status DC Ondansetron HCl (Zofran) 4 mg PRN Q8HRS PRN IV NAUSEA/VOMITING; Start 07/08/16 at 23:00; Stop 07/08/16 at 23:15; Status DC Morphine Sulfate 2 mg 2 mg PRN Q2HR PRN IV SEVERE PAIN; Start 07/08/16 at 23:00 ; Stop 07/09/16 at 22:59; Status DC Sodium Chloride (Iv Sodium Chloride 0.9% 1000ml Bag) 1,000 ml @ 50 mls/hr Q20H IV Last administered on 07/09/16 03:09; Start 07/08/16 at 22:59; Stop at 22:58; Status DC Acetaminophen 650 mg 650 mg PRN Q4HRS PRN PO FEVER; Start 07/08/16 at 23:00; Stop 07/09/16 at 11:33; Status DC Piperacillin Sod/ Tazobactam Sod 3.375 gm/Sodium Chloride 50 ml @ 100 mls/hr Q6HRS IV Last administered on 07/09/16 12:34; Start 07/09/16 at 06:00; Stop at 15:38; Status DC Vancomycin HCl/ Sodium Chloride (Iv Sodium Chloride 0.9% 250ml) 250 ml @ 167 mls/hr Q24H IV ; Start 07/09/16 at 21:00; Stop 07/09/16 at 21:00; Status DC Vancomycin HCl 1 each 1X ONCE MC ; Start 07/10/16 at 20:30; Stop 07/10/16 at 20 :30; Status DC Acetaminophen (Tylenol) 325 mg PRN Q6HRS PRN PO MILD PAIN / TEMP; Start at 09:30 Acetaminophen/ Hydrocodone Bitart (Lortab 5/325) 1 tab PRN Q6HRS PRN PO MODERATE TO SEVERE PAIN; Start 07/09/16 at 09:30; Stop 07/09/16 at 14:08; Status DC Hydralazine HCl (Apresoline) 10 mg PRN Q4HRS PRN IVP ELEVATED BP, SEE COMMENTS ; Start 07/09/16 at 09:30; Stop 07/09/16 at 14:08; Status DC Ondansetron HCl (Zofran) 4 mg PRN Q8HRS PRN IV NAUSEA/VOMITING; Start 07/09/16 at 09:30 Albuterol Sulfate (Ventolin Neb Soln) 2.5 mg PRN Q4HRS PRN NEB SHORTNESS OF BREATH; Start 07/09/16 at 09:30 Cyclobenzaprine HCl (Flexeril) 5 mg PRN Q6HRS PRN PO MUSCLE SPASMS; Start 07/09 at 11:30 Amlodipine Besylate (Norvasc) 5 mg DAILY PO ; Start 07/09/16 at 12:00; Status Cancel Metoprolol Tartrate (Lopressor) 25 mg DAILY PO Last administered on 07/09/16t 17:35; Start 07/09/16 at 17:00 Acetaminophen (Tylenol) 325 mg PRN Q6HRS PRN PO MILD PAIN / TEMP; Start at 11:30; Stop 07/09/16 at 11:35; Status DC Acetaminophen/ Hydrocodone Bitart (Lortab 5/325) 1 tab PRN Q6HRS PRN PO MODERATE TO SEVERE PAIN; Start 07/09/16 at 11:30 Hydralazine HCl (Apresoline) 10 mg PRN Q4HRS PRN IVP ELEVATED BP, SEE COMMENTS ; Start 07/09/16 at 11:30 Ondansetron HCl (Zofran) 4 mg PRN Q8HRS PRN IV NAUSEA/VOMITING; Start 07/09/16 at 11:30; Stop 07/09/16 at 11:35; Status DC Albuterol Sulfate (Ventolin Neb Soln) 2.5 mg PRN Q4HRS PRN NEB SHORTNESS OF BREATH; Start 07/09/16 at 11:30; Stop 07/09/16 at 11:36; Status DC Amlodipine Besylate (Norvasc) 5 mg DAILY PO Last administered on 07/09/16 17: 35; Start 07/09/16 at 16:00 Amoxicillin/ Clavulanate Potassium (Augmentin 875/ 125mg) 1 tab BID PO Last administered on 07/09/16 21:44; Start 07/09/16 at 21:00 Enoxaparin Sodium (Lovenox 40mg Syringe) 40 mg QHS SQ Last administered on 07/09 21:45; Start 07/09/16 at 21:00 Acetaminophen (Tylenol) 600 mg PRN Q6HRS PRN PO MILD PAIN / TEMP; Start at 16:00 Alprazolam (Xanax) 0.25 mg PRN Q8HRS PRN PO ANXIETY / AGITATION; Start at 16:00 Vitamin D (Vitamin D3) 1,000 unit DAILY PO ; Start 07/10/16 at 09:00 Docusate Sodium (Colace) 100 mg BID PO Last administered on 07/09/16 21:45; Start 07/09/16 at 21:00 Escitalopram Oxalate (Lexapro) 10 mg DAILY PO ; Start 07/10/16 at 09:00 Famotidine (Pepcid) 20 mg BID PO Last administered on 07/09/16 21:45; Start at 21:00 Sertraline HCl (Zoloft) 50 mg HS PO Last administered on 07/09/16 21:44; Start 07/09/16 at 21:00 Tamsulosin HCl (Flomax) 0.4 mg QHS PO ; Start 07/10/16 at 21:00 Donepezil HCl (Aricept) 10 mg BID PO Last administered on 07/09/16 21:45; Start 07/09/16 at 21:00 Non-Formulary Medication 100 mg BID PO ; Start 07/09/16 at 21:00; Stop 07/09/16 at 21:00; Status DC Lactobacillus Acidophilus (Bacid, Apple-Bid) 1 tab QHS PO ; Start 07/10/16 at 21: 00 Non-Formulary Medication 3 mg QHS PO ; Start 07/09/16 at 21:00; Stop 07/09/16 at 21:00; Status DC Memantine (Namenda) 10 mg BID PO Last administered on 07/09/16 21:45; Start at 21:00 Potassium Chloride (Klor-Con) 10 meq [id number] PO ; Start 07/10/16 at 08:00 Triamcinolone Acetonide (Kenalog) 1 alaina BID TP Last administered on 07/09/16 21:45; Start 07/09/16 at 21:00 Active Scripts Active Reported Zoloft (Sertraline Hcl) 50 Mg Tablet 50 Mg PO HS Xanax (Alprazolam) 0.25 Mg Tablet 0.25 Mg PO PRN Q8HRS PRN Vitamin D3 (Cholecalciferol (Vitamin D3)) 1,000 Unit Tablet 1,000 Unit PO DAILY Acetaminophen 325 Mg Tablet 600 Mg PO PRN Q6HRS PRN Triamcinolone Acetonide 80 Gm Oint...g. 80 Gm TP BID Tamsulosin Hcl 0.4 Mg Cap.er.24h 0.4 Mg PO DAILY Potassium Chloride 10 Meq Capsule.er 10 Meq PO DAILY Namenda Xr (Memantine Hcl) 28 Mg Cap.spr.24 28 Mg PO DAILY Melatonin 3 Mg Tablet 3 Mg PO QHS Escitalopram Oxalate 10 Mg Tablet 10 Mg PO DAILY Famotidine 20 Mg Tablet 20 Mg PO BID Doxycycline Monohydrate 100 Mg Capsule 100 Mg PO BID Donepezil Hcl 23 Mg Tablet 23 Mg PO DAILY Colace (Docusate Sodium) 100 Mg Capsule 100 Mg PO BID Acidophilus Lactobacillus (Lactobacillus Acidophilus) 1 Each Capsule 1 Each PO HS Metoprolol Tartrate 25 Mg Tablet 1 Tab PO DAILY Amlodipine Besylate 5 Mg Tablet 5 Mg PO DAILY Vitals/I & O Vital Sign - Last 24 Hours 07/09/16 07/09/16 07/09/16 07/09/16 08:28 11:00 14:54 17:35 Temp 98.8 98.8 98.8 98.8 Pulse 108 108 108 Resp 18 18 B/P 118/64 118/64 118/64 Pulse Ox 95 95 O2 Delivery Nasal Cannula Room Air Nasal Cannula O2 Flow Rate 2.0 2.0 3/18/07/09/16 07/09/16 07/09/16 17:35 19:00 20:05 23:00 Temp 97.9 97.7 97.9 97.7 Pulse 108 97 134 Resp 22 21 B/P 118/64 130/87 139/90 Pulse Ox 97 94 O2 Delivery Room Air Room Air Room Air 07/10/16 03:00 Temp 97.9 97.9 Pulse 125 Resp 20 B/P 130/83 Pulse Ox 93 O2 Delivery Room Air Intake and Output 07/09/16 07/09/16 07/10/16 15:00 23:00 07:00 Intake Total 150 ml Balance 150 ml CHEN AIKEN MD Jul 10, 2016 07:30
[2016-07-10] MEDS ORDERED: IV NORMAL SALINE 1000ML BAG 1,000 ML IV ONE (09:45)
[2016-07-10] MEDS: DONEPEZIL HCL 10 MG TABLET. PO SCH ×2 (09:51→21:03)
[2016-07-10] MEDS: DOCUSATE SODIUM 100 MG CAPSULE PO SCH ×2 (09:51→21:03)
[2016-07-10] MEDS: AMOXICILLIN/K CLAV 875/125MG TABLET. PO SCH ×2 (09:51→21:03)
[2016-07-10] MEDS: AMLODIPINE BESYLATE 5 MG TABLET PO SCH (09:52)
[2016-07-10] MEDS: POTASSIUM CHLORIDE 10 MEQ TABLET.ER. PO SCH (09:52)
[2016-07-10] MEDS: FAMOTIDINE 20 MG TABLET. PO SCH ×2 (09:52→21:04)
[2016-07-10] MEDS: ESCITALOPRAM 10 MG TABLET. PO SCH (09:52)
[2016-07-10] MEDS: MEMANTINE 10 MG TABLET. PO SCH ×2 (09:52→21:04)
[2016-07-10] MEDS: CHOLECALCIFEROL (VITAMIN D3) 1,000 UNIT TABLET PO SCH (09:53)
[2016-07-10] MEDS: TRIAMCINOLONE ACETONIDE 0.1% TOPICAL CREAM 15GM TUBE. TP SCH ×2 (09:53→21:04)
[2016-07-10] MEDS: METOPROLOL TART IMMED RELEASE 25 MG TABLET PO SCH ×2 (09:53→21:04)
[2016-07-10 11:00] VITALS: BP 131/98
--- NOTE | 2016-07-10 14:10 | PDOC ---
CARDIOLOGY PROGRESS NOTE SUBJECTIVE: No acute events overnight. OBJECTIVE: Vital SIgns: Vital Signs Date Time Temp Pulse Resp B/P Pulse Ox O2 Delivery O2 Flow Rate FiO2 07/10/16 11:00 97.5 114 18 131/98 94 Room Air 97.5 07/09/16 14:54 2.0 I & O Intake and Output 07/10/16 07:00 Intake Total 150 ml Balance 150 ml Intake Oral 150 ml # Voids 6 Objective: Gen: Alert to self. Otherwise, severe dementia CV: irr, irr. no m/r/g PULM: Bilateral rhonchi ABD Soft, NT/ND EXT: No edema. 2+ pulses, warm to touch NEURO:Non focal exam. MSK: No trauma. CURRENT MEDICATIONS: Current Medications Medications (Trade) Dose Ordered Sig/Delta Start Time Stop Time Status Last Admin Dose Admin Acetaminophen (Tylenol) 600 mg PRN Q6HRS PRN 07/09/16 16:00 Acetaminophen 650 mg 650 mg PRN Q4HRS PRN 07/08/16 23:00 07/09/16 11:33 DC Acetaminophen/ Hydrocodone Bitart (Lortab 5/325) 1 tab PRN Q6HRS PRN 07/09/16 11:30 Albuterol Sulfate (Ventolin Neb Soln) 2.5 mg PRN Q4HRS PRN 07/09/16 11:30 07/09/16 11:36 DC Alprazolam (Xanax) 0.25 mg PRN Q8HRS PRN 07/09/16 16:00 Amlodipine Besylate (Norvasc) 5 mg DAILY 07/09/16 16:00 07/10/16 09:52 5 MG Amoxicillin/ Clavulanate Potassium (Augmentin 875/ 125mg) 1 tab BID 07/09/16 21:00 07/10/16 09:51 1 TAB Cyclobenzaprine HCl (Flexeril) 5 mg PRN Q6HRS PRN 07/09/16 11:30 07/10/16 13:24 5 MG Docusate Sodium (Colace) 100 mg BID 07/09/16 21:00 07/10/16 09:51 100 MG Donepezil HCl (Aricept) 10 mg BID 07/09/16 21:00 07/10/16 09:51 10 MG Enoxaparin Sodium (Lovenox 40mg Syringe) 40 mg QHS 07/09/16 21:00 07/09/16 21:45 40 MG Escitalopram Oxalate (Lexapro) 10 mg DAILY 07/10/16 09:00 07/10/16 09:52 10 MG Famotidine (Pepcid) 20 mg BID 07/09/16 21:00 07/10/16 09:52 20 MG Hydralazine HCl (Apresoline) 10 mg PRN Q4HRS PRN 07/09/16 11:30 Lactobacillus Acidophilus (Bacid, Apple-Bid) 1 tab QHS 07/10/16 21:00 Memantine (Namenda) 10 mg BID 07/09/16 21:00 07/10/16 09:52 10 MG Metoprolol Tartrate (Lopressor) 25 mg DAILY 07/09/16 17:00 07/10/16 09:53 25 MG Morphine Sulfate 2 mg PRN Q2HR PRN 07/08/16 23:00 07/09/16 22:59 DC Non-Formulary Medication 3 mg QHS 07/09/16 21:00 07/09/16 21:00 DC Ondansetron HCl (Zofran) 4 mg PRN Q8HRS PRN 07/09/16 11:30 07/09/16 11:35 DC Piperacillin Sod/ Tazobactam Sod 3.375 gm/Sodium Chloride 50 ml @ 100 mls/hr Q6HRS 07/09/16 06:00 07/09/16 15:38 DC 07/09/16 12:34 100 MLS/HR Piperacillin Sod/ Tazobactam Sod 1 each 1 each PRN DAILY PRN 07/08/16 20:30 07/09/16 16:57 DC Potassium Chloride (Klor-Con) 10 meq DAILYWBKFT 07/10/16 08:00 07/10/16 09:52 10 MEQ Sertraline HCl (Zoloft) 50 mg HS 07/09/16 21:00 07/09/16 21:44 50 MG Sodium Chloride (Iv Sodium Chloride 0.9% 1000ml Bag) 1,000 ml @ 1,000 mls/hr 1X ONCE 07/10/16 09:45 07/10/16 10:44 DC 07/10/16 09:53 1,000 MLS/HR Tamsulosin HCl (Flomax) 0.4 mg QHS 07/10/16 21:00 Triamcinolone Acetonide 1 alaina 1 alaina BID 07/09/16 21:00 07/10/16 09:53 1 ALAINA Vancomycin HCl 1 each 1X ONCE 07/10/16 20:30 07/10/16 20:30 DC Vancomycin HCl (Vanco Per Pharmacy) 1 each PRN DAILY PRN 07/08/16 20:30 07/09/16 17:10 DC 07/09/16 14:10 1 EACH Vancomycin HCl/ Sodium Chloride (Iv Sodium Chloride 0.9% 250ml) 250 ml @ 167 mls/hr Q24H 07/09/16 21:00 07/09/16 21:00 DC Vancomycin HCl/ Sodium Chloride (Iv Sodium Chloride 0.9% 500ml Bag) 500 ml @ 250 mls/hr 1X ONCE 07/08/16 21:00 07/09/16 15:38 DC 07/08/16 21:00 250 MLS/HR Vitamin D (Vitamin D3) 1,000 unit DAILY 07/10/16 09:00 07/10/16 09:53 1,000 UNIT ASSESSMENT: 1. Afib with RVR 2. Dehydration Problems: PLAN: 1. Will increase Metoprolol to 25mg bid 2. Continue hydration and supportive care. Spoke extensively with daughter in law about afib. Will plan for slow HR correction to avoid hypotension. Discussed anticoagulation. They will make decision about it. Suspect given his age, dementia and physical state, would recommend asa only but will defer to family. PETER PALMER MD Jul 10, 2016 14:10
[2016-07-10 15:00] VITALS: BP 123/69
[2016-07-10] MEDS: ASPIRIN ENTERIC COATED 81 MG TABLET.DR. PO SCH (16:20)
[2016-07-10] MEDS ORDERED: DIGOXIN 500 MCG/2 ML AMPUL. IV ONE (17:30)
[2016-07-10 19:00] VITALS: BP 137/83
--- NOTE | 2016-07-10 19:41 | PDOC2 ---
NEUROLOGY CONSULT Date of Admission Date of Admission Full Report Dictated DATE: 07/10/16 TIME: 19:35 Current Medications Current Medications Current Medications Vancomycin HCl (Vanco Per Pharmacy) 1 each PRN DAILY PRN MC SEE COMMENTS Last administered on 07/09/16 14:10; Start 07/08/16 at 20:30; Stop 07/09/16 at 17:10 ; Status DC Piperacillin Sod/ Tazobactam Sod 1 each 1 each PRN DAILY PRN MC SEE COMMENTS; Start 07/08/16 at 20:30; Stop 07/09/16 at 16:57; Status DC Sodium Chloride 500 ml @ 500 mls/hr 1X ONCE IV Last administered on 21:22; Start 07/08/16 at 20:45; Stop 07/08/16 at 21:44; Status DC Piperacillin Sod/ Tazobactam Sod 3.375 gm/Sodium Chloride 50 ml @ 100 mls/hr 1X ONCE IV Last administered on 07/08/16 21:00; Start 07/08/16 at 21:00; Stop 07/09/16 at 15:38; Status DC Vancomycin HCl/ Sodium Chloride (Iv Sodium Chloride 0.9% 500ml Bag) 500 ml @ 250 mls/hr 1X ONCE IV Last administered on 07/08/16 21:00; Start 07/08/16 at 21:00; Stop 07/09/16 at 15:38; Status DC Ondansetron HCl (Zofran) 4 mg PRN Q8HRS PRN IV NAUSEA/VOMITING; Start 07/08/16 at 23:00; Stop 07/08/16 at 23:15; Status DC Morphine Sulfate 2 mg 2 mg PRN Q2HR PRN IV SEVERE PAIN; Start 07/08/16 at 23:00 ; Stop 07/09/16 at 22:59; Status DC Sodium Chloride (Iv Sodium Chloride 0.9% 1000ml Bag) 1,000 ml @ 50 mls/hr Q20H IV Last administered on 07/09/16 03:09; Start 07/08/16 at 22:59; Stop at 22:58; Status DC Acetaminophen 650 mg 650 mg PRN Q4HRS PRN PO FEVER; Start 07/08/16 at 23:00; Stop 07/09/16 at 11:33; Status DC Piperacillin Sod/ Tazobactam Sod 3.375 gm/Sodium Chloride 50 ml @ 100 mls/hr Q6HRS IV Last administered on 07/09/16 12:34; Start 07/09/16 at 06:00; Stop at 15:38; Status DC Vancomycin HCl/ Sodium Chloride (Iv Sodium Chloride 0.9% 250ml) 250 ml @ 167 mls/hr Q24H IV ; Start 07/09/16 at 21:00; Stop 07/09/16 at 21:00; Status DC Vancomycin HCl 1 each 1X ONCE MC ; Start 07/10/16 at 20:30; Stop 07/10/16 at 20 :30; Status DC Acetaminophen (Tylenol) 325 mg PRN Q6HRS PRN PO MILD PAIN / TEMP; Start at 09:30 Acetaminophen/ Hydrocodone Bitart (Lortab 5/325) 1 tab PRN Q6HRS PRN PO MODERATE TO SEVERE PAIN; Start 07/09/16 at 09:30; Stop 07/09/16 at 14:08; Status DC Hydralazine HCl (Apresoline) 10 mg PRN Q4HRS PRN IVP ELEVATED BP, SEE COMMENTS ; Start 07/09/16 at 09:30; Stop 07/09/16 at 14:08; Status DC Ondansetron HCl (Zofran) 4 mg PRN Q8HRS PRN IV NAUSEA/VOMITING; Start 07/09/16 at 09:30 Albuterol Sulfate (Ventolin Neb Soln) 2.5 mg PRN Q4HRS PRN NEB SHORTNESS OF BREATH; Start 07/09/16 at 09:30 Cyclobenzaprine HCl (Flexeril) 5 mg PRN Q6HRS PRN PO MUSCLE SPASMS Last administered on 07/10/16 13:24; Start 07/09/16 at 11:30 Amlodipine Besylate (Norvasc) 5 mg DAILY PO ; Start 07/09/16 at 12:00; Status Cancel Metoprolol Tartrate (Lopressor) 25 mg DAILY PO Last administered on 07/10/16 09:53; Start 07/09/16 at 17:00; Stop 07/10/16 at 14:08; Status DC Acetaminophen (Tylenol) 325 mg PRN Q6HRS PRN PO MILD PAIN / TEMP; Start at 11:30; Stop 07/09/16 at 11:35; Status DC Acetaminophen/ Hydrocodone Bitart (Lortab 5/325) 1 tab PRN Q6HRS PRN PO MODERATE TO SEVERE PAIN; Start 07/09/16 at 11:30 Hydralazine HCl (Apresoline) 10 mg PRN Q4HRS PRN IVP ELEVATED BP, SEE COMMENTS ; Start 07/09/16 at 11:30 Ondansetron HCl (Zofran) 4 mg PRN Q8HRS PRN IV NAUSEA/VOMITING; Start 07/09/16 at 11:30; Stop 07/09/16 at 11:35; Status DC Albuterol Sulfate (Ventolin Neb Soln) 2.5 mg PRN Q4HRS PRN NEB SHORTNESS OF BREATH; Start 07/09/16 at 11:30; Stop 07/09/16 at 11:36; Status DC Amlodipine Besylate (Norvasc) 5 mg DAILY PO Last administered on 07/10/16 09: 52; Start 07/09/16 at 16:00 Amoxicillin/ Clavulanate Potassium (Augmentin 875/ 125mg) 1 tab BID PO Last administered on 07/10/16 09:51; Start 07/09/16 at 21:00 Enoxaparin Sodium (Lovenox 40mg Syringe) 40 mg QHS SQ Last administered on 07/09 21:45; Start 07/09/16 at 21:00 Acetaminophen (Tylenol) 600 mg PRN Q6HRS PRN PO MILD PAIN / TEMP; Start at 16:00 Alprazolam (Xanax) 0.25 mg PRN Q8HRS PRN PO ANXIETY / AGITATION; Start at 16:00 Vitamin D (Vitamin D3) 1,000 unit DAILY PO Last administered on 07/10/16 09:53 ; Start 07/10/16 at 09:00 Docusate Sodium (Colace) 100 mg BID PO Last administered on 07/10/16 09:51; Start 07/09/16 at 21:00 Escitalopram Oxalate (Lexapro) 10 mg DAILY PO Last administered on 07/10/16 09 :52; Start 07/10/16 at 09:00 Famotidine (Pepcid) 20 mg BID PO Last administered on 07/10/16 09:52; Start at 21:00 Sertraline HCl (Zoloft) 50 mg HS PO Last administered on 07/09/16 21:44; Start 07/09/16 at 21:00 Tamsulosin HCl (Flomax) 0.4 mg QHS PO ; Start 07/10/16 at 21:00 Donepezil HCl (Aricept) 10 mg BID PO Last administered on 07/10/16 09:51; Start 07/09/16 at 21:00 Non-Formulary Medication 100 mg BID PO ; Start 07/09/16 at 21:00; Stop 07/09/16 at 21:00; Status DC Lactobacillus Acidophilus (Bacid, Apple-Bid) 1 tab QHS PO ; Start 07/10/16 at 21: 00 Non-Formulary Medication 3 mg QHS PO ; Start 07/09/16 at 21:00; Stop 07/09/16 at 21:00; Status DC Memantine (Namenda) 10 mg BID PO Last administered on 07/10/16 09:52; Start at 21:00 Potassium Chloride (Klor-Con) 10 meq DAILYWBKFT PO Last administered on 09:52; Start 07/10/16 at 08:00 Triamcinolone Acetonide 1 alaina 1 alaina BID TP Last administered on 07/10/16 09:53 ; Start 07/09/16 at 21:00 Sodium Chloride (Iv Sodium Chloride 0.9% 1000ml Bag) 1,000 ml @ 1,000 mls/hr 1X ONCE IV Last administered on 07/10/16 09:53; Start 07/10/16 at 09:45; Stop 07/10/16 at 10:44; Status DC Metoprolol Tartrate (Lopressor) 25 mg BID PO ; Start 07/10/16 at 21:00 Aspirin (Ecotrin) 81 mg DAILYWBKFT PO Last administered on 07/10/16 16:20; Start 07/10/16 at 15:00 Digoxin (Lanoxin) 250 mcg 1X ONCE IV Last administered on 07/10/16 18:22; Start 07/10/16 at 17:30; Stop 07/10/16 at 17:33; Status DC Active Scripts Active Reported Zoloft (Sertraline Hcl) 50 Mg Tablet 50 Mg PO HS Xanax (Alprazolam) 0.25 Mg Tablet 0.25 Mg PO PRN Q8HRS PRN Vitamin D3 (Cholecalciferol (Vitamin D3)) 1,000 Unit Tablet 1,000 Unit PO DAILY Acetaminophen 325 Mg Tablet 600 Mg PO PRN Q6HRS PRN Triamcinolone Acetonide 80 Gm Oint...g. 80 Gm TP BID Tamsulosin Hcl 0.4 Mg Cap.er.24h 0.4 Mg PO DAILY Potassium Chloride 10 Meq Capsule.er 10 Meq PO DAILY Namenda Xr (Memantine Hcl) 28 Mg Cap.spr.24 28 Mg PO DAILY Melatonin 3 Mg Tablet 3 Mg PO QHS Escitalopram Oxalate 10 Mg Tablet 10 Mg PO DAILY Famotidine 20 Mg Tablet 20 Mg PO BID Doxycycline Monohydrate 100 Mg Capsule 100 Mg PO BID Donepezil Hcl 23 Mg Tablet 23 Mg PO DAILY Colace (Docusate Sodium) 100 Mg Capsule 100 Mg PO BID Acidophilus Lactobacillus (Lactobacillus Acidophilus) 1 Each Capsule 1 Each PO HS Metoprolol Tartrate 25 Mg Tablet 1 Tab PO DAILY Amlodipine Besylate 5 Mg Tablet 5 Mg PO DAILY Allergies Allergies: Coded Allergies: No Known Drug Allergies (Unverified , 07/08/16) Vitals VITALS Vital Signs Date Time Temp Pulse Resp B/P Pulse Ox O2 Delivery O2 Flow Rate FiO2 07/10/16 18:22 136 123/69 07/10/16 15:00 99.1 18 90 Room Air 99.1 07/09/16 14:54 2.0 Labs Labs Laboratory Tests Test 07/08/16 20:20 07/08/16 22:30 07/08/16 22:41 07/09/16 04:05 White Blood Count 12.1x10^3/uL (4.0-11.0) 11.2x10^3/uL (4.0-11.0) Red Blood Count 4.04x10^6/uL (4.30-5.70) 3.75x10^6/uL (4.30-5.70) Hemoglobin 12.5g/dL (13.0-17.5) 11.7g/dL (13.0-17.5) Hematocrit 38.8% (39.0-53.0) 35.4% (39.0-53.0) Mean Corpuscular Volume 96fL (79-100) 94fL (79-100) Mean Corpuscular Hemoglobin 31pg (25-35) 31pg (25-35) Mean Corpuscular Hemoglobin Concent 32g/dL (31-37) 33g/dL (31-37) Red Cell Distribution Width 15.5% (11.5-14.5) 15.6% (11.5-14.5) Platelet Count 204x10^3/uL (140-400) 196x10^3/uL (140-400) Neutrophils (%) (Auto) 70% (31-73) 63% (31-73) Lymphocytes (%) (Auto) 14% (24-48) 18% (24-48) Monocytes (%) (Auto) 15% (0-9) 16% (0-9) Eosinophils (%) (Auto) 1% (0-3) 2% (0-3) Basophils (%) (Auto) 1% (0-3) 1% (0-3) Neutrophils # (Auto) 8.4x10^3uL (1.8-7.7) 7.1x10^3uL (1.8-7.7) Lymphocytes # (Auto) 1.6x10^3/uL (1.0-4.8) 2.0x10^3/uL (1.0-4.8) Monocytes # (Auto) 1.8x10^3/uL (0.0-1.1) 1.7x10^3/uL (0.0-1.1) Eosinophils # (Auto) 0.1x10^3/uL (0.0-0.7) 0.3x10^3/uL (0.0-0.7) Basophils # (Auto) 0.1x10^3/uL (0.0-0.2) 0.1x10^3/uL (0.0-0.2) Sodium Level 142mmol/L (136-145) 144mmol/L (136-145) Potassium Level 4.1mmol/L (3.5-5.1) 3.8mmol/L (3.5-5.1) Chloride Level 106mmol/L (98-107) 107mmol/L (98-107) Carbon Dioxide Level 27mmol/L (21-32) 29mmol/L (21-32) Anion Gap 9 (6-14) 8 (6-14) Blood Urea Nitrogen 18mg/dL (8-26) 17mg/dL (8-26) Creatinine 1.3mg/dL (0.7-1.3) 1.3mg/dL (0.7-1.3) Estimated GFR (Cockcroft-Gault) 52.6 52.6 BUN/Creatinine Ratio 14 (6-20) Glucose Level 117mg/dL (70-99) 110mg/dL (70-99) Lactic Acid Level 1.6mmol/L (0.4-2.0) Calcium Level 9.1mg/dL (8.5-10.1) 8.7mg/dL (8.5-10.1) Magnesium Level 2.1mg/dL (1.8-2.4) Total Bilirubin 0.8mg/dL (0.2-1.0) Aspartate Amino Transf (AST/SGOT) 33U/L (15-37) Alanine Aminotransferase (ALT/SGPT) 15U/L (16-63) Alkaline Phosphatase 99U/L (46-116) Troponin I Quantitative < 0.017ng/mL (0.000-0.055) VE-Grf-[id number]-Type Natriuretic Peptide 1345pg/mL (0-449) Total Protein 7.4g/dL (6.4-8.2) Albumin 2.7g/dL (3.4-5.0) Albumin/Globulin Ratio 0.6 (1.0-1.7) Thyroid Stimulating Hormone (TSH) 0.826uIU/mL (0.358-3.74) Influenza Type A Antigen Negative (NEGATIVE) Influenza Type B Antigen Negative (NEGATIVE) Urine Collection Type Unknown Urine Color Dk yellow Urine Clarity Clear Urine pH 5.5 Urine Specific [place] 1.020 Urine Protein Negativemg/dL (NEG-TRACE) Urine Glucose (UA) Negativemg/dL (NEG) Urine Ketones (Stick) Negativemg/dL (NEG) Urine Blood Trace (NEG) Urine Nitrite Negative (NEG) Urine Bilirubin Negative (NEG) Urine Urobilinogen Dipstick 1.0mg/dL (0.2 mg/dL) Urine Leukocyte Esterase Small (NEG) Urine RBC Rare/HPF (0-2) Urine WBC Occ/HPF (0-4) Urine Squamous Epithelial Cells Few/LPF Urine Bacteria 0/HPF (0-FEW) Urine Hyaline Casts Occasional/HPF Urine Mucus Mod/LPF Test 07/09/16 22:12 07/10/16 03:20 Nasal Screen MRSA (PCR) Negative (Negative) White Blood Count 10.8x10^3/uL (4.0-11.0) Red Blood Count 3.72x10^6/uL (4.30-5.70) Hemoglobin 11.8g/dL (13.0-17.5) Hematocrit 35.1% (39.0-53.0) Mean Corpuscular Volume 94fL (79-100) Mean Corpuscular Hemoglobin 32pg (25-35) Mean Corpuscular Hemoglobin Concent 34g/dL (31-37) Red Cell Distribution Width 15.4% (11.5-14.5) Platelet Count 195x10^3/uL (140-400) Neutrophils (%) (Auto) 68% (31-73) Lymphocytes (%) (Auto) 17% (24-48) Monocytes (%) (Auto) 13% (0-9) Eosinophils (%) (Auto) 2% (0-3) Basophils (%) (Auto) 1% (0-3) Neutrophils # (Auto) 7.3x10^3uL (1.8-7.7) Lymphocytes # (Auto) 1.8x10^3/uL (1.0-4.8) Monocytes # (Auto) 1.4x10^3/uL (0.0-1.1) Eosinophils # (Auto) 0.2x10^3/uL (0.0-0.7) Basophils # (Auto) 0.1x10^3/uL (0.0-0.2) Sodium Level 143mmol/L (136-145) Potassium Level 3.9mmol/L (3.5-5.1) Chloride Level 107mmol/L (98-107) Carbon Dioxide Level 26mmol/L (21-32) Anion Gap 10 (6-14) Blood Urea Nitrogen 16mg/dL (8-26) Creatinine 1.2mg/dL (0.7-1.3) Estimated GFR (Cockcroft-Gault) 57.7 Glucose Level 98mg/dL (70-99) Calcium Level 8.9mg/dL (8.5-10.1) Laboratory Tests Test 07/09/16 22:12 07/10/16 03:20 Nasal Screen MRSA (PCR) Negative (Negative) White Blood Count 10.8x10^3/uL (4.0-11.0) Red Blood Count 3.72x10^6/uL (4.30-5.70) Hemoglobin 11.8g/dL (13.0-17.5) Hematocrit 35.1% (39.0-53.0) Mean Corpuscular Volume 94fL (79-100) Mean Corpuscular Hemoglobin 32pg (25-35) Mean Corpuscular Hemoglobin Concent 34g/dL (31-37) Red Cell Distribution Width 15.4% (11.5-14.5) Platelet Count 195x10^3/uL (140-400) Neutrophils (%) (Auto) 68% (31-73) Lymphocytes (%) (Auto) 17% (24-48) Monocytes (%) (Auto) 13% (0-9) Eosinophils (%) (Auto) 2% (0-3) Basophils (%) (Auto) 1% (0-3) Neutrophils # (Auto) 7.3x10^3uL (1.8-7.7) Lymphocytes # (Auto) 1.8x10^3/uL (1.0-4.8) Monocytes # (Auto) 1.4x10^3/uL (0.0-1.1) Eosinophils # (Auto) 0.2x10^3/uL (0.0-0.7) Basophils # (Auto) 0.1x10^3/uL (0.0-0.2) Sodium Level 143mmol/L (136-145) Potassium Level 3.9mmol/L (3.5-5.1) Chloride Level 107mmol/L (98-107) Carbon Dioxide Level 26mmol/L (21-32) Anion Gap 10 (6-14) Blood Urea Nitrogen 16mg/dL (8-26) Creatinine 1.2mg/dL (0.7-1.3) Estimated GFR (Cockcroft-Gault) 57.7 Glucose Level 98mg/dL (70-99) Calcium Level 8.9mg/dL (8.5-10.1) Assessment/Plan Assessment/Plan Family not available for history. Records reviewed for available history and discussed with nursing staff. He is a demented individual not able to provide any meaningful history. His neck is rigid to the right which on exam would appear chronic but according to nursing staff is new. He appears that he may not have been out of bed for a long time but according to nursing staff this is also new. 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 I will obtain a CT scan of the cervical spine to see if there is evidence of bony destruction and spinal cord narrowing. He may need an MRI of the cervical spine although I'm not certain he'll be able to tolerate this. RISHI VALLE MD Jul 10, 2016 19:41
[2016-07-10] MEDS: SERTRALINE 50 MG TABLET. PO SCH (21:03)
[2016-07-10] MEDS: LACTOBACILLUS ACIDOPH & BULGAR 1 TABLET. PO SCH (21:03)
[2016-07-10] MEDS: ENOXAPARIN 40 MG/0.4 ML SYRINGE. SQ SCH (21:04)
[2016-07-10] MEDS: TAMSULOSIN 0.4 MG CAP.ER.24H. PO SCH (21:04)
[2016-07-10 23:00] VITALS: BP 130/74
[2016-07-11 03:14] VITALS: BP 128/61
[2016-07-11 04:56] LABS: BASO # 0.1 x10^3/uL (0.0-0.2); BASO % 1 % (0-3); EOS % 1 % (0-3); HEMATOCRIT 34.9 % (39.0-53.0); HEMOGLOBIN 11.3 g/dL (13.0-17.5); LYMPH # 1.6 x10^3/uL (1.0-4.8); LYMPH % 14 % (24-48); MEAN CORPUSCULAR HEMOGLOBIN 31 pg (25-35); MEAN CORPUSCULAR HGB CONC 32 g/dL (31-37); MEAN CORPUSCULAR VOLUME 97 fL (79-100); MONO % 16 % (0-9); NEUT % 69 % (31-73); PLATELET COUNT 213 x10^3/uL (140-400); RED BLOOD COUNT 3.61 x10^6/uL (4.30-5.70); RED CELL DISTRIBUTION WIDTH 15.7 % (11.5-14.5); WHITE BLOOD COUNT 11.2 x10^3/uL (4.0-11.0)
[2016-07-11 05:12] LABS: CALCIUM 9.1 mg/dL (8.5-10.1); CREATININE 1.2 mg/dL (0.7-1.3); GFR 57.7; POTASSIUM 3.7 mmol/L (3.5-5.1)
[2016-07-11 07:10] VITALS: BP 144/73
--- NOTE | 2016-07-11 08:37 | CONS ---
DATE OF CONSULTATION: 07/10/2016 REFERRING PHYSICIAN: Dr. Bolanos. REASON FOR CONSULTATION: Neck pain, dementia and poor mobility. HISTORY OF PRESENT ILLNESS: The patient is a very demented 86-year-old man who does not have any family members present to provide any history. According to the records, he presented with mental status change, although it is not clear if he actually had mental status change. He resides in an assisted living facility. According to discussion with nursing staff, the family noted to them that as recent as 2 weeks ago, he was able to be up and move around. He has complained of neck pain, which has progressively worsened. He is not able to provide any meaningful history whatsoever. I am not certain how long he has had dementia or the severity. Apparently, he has diffuse pain complaints in addition to the neck, which are new. PAST MEDICAL HISTORY: 1. Dementia. 2. Congestive heart failure. 3. Tachycardia. 4. Atrial fibrillation. 5. Failure to thrive. ALLERGIES: No known allergies to drugs. MEDICATIONS PRIOR TO ADMISSION: Tylenol as needed, alprazolam 0.25 mg as needed, amlodipine 5 mg, vitamin D3, Colace, donepezil 23 mg, doxycycline monohydrate 100 mg twice per day, Lexapro 10 mg, famotidine 20 mg twice per day, lactobacillus acidophilus at night, melatonin 3 mg, Namenda XR 28 mg, metoprolol 25 mg, potassium chloride 10 mEq, sertraline 50 mg, tamsulosin 0.4 mg and triamcinolone cream twice per day. FAMILY HISTORY: Noncontributory. SOCIAL HISTORY: According to records, he lives in a alf. He does not drink alcohol or use recreational drugs. He is a . REVIEW OF SYSTEMS: He is not a reliable historian. He denies headache or pain. That being said, when I move him, he complains of pain with every movement. He does not complain of change of vision or hearing. He denies difficulty with swallowing. He denies shortness of breath, chest or abdominal pain. He is not aware of any fever or rash. No gastrointestinal or genitourinary complaints. Denies psychiatric concerns such as anxiety, depression or hallucinations. Does not complain of swelling. Reliability is in question. PHYSICAL EXAMINATION: VITAL SIGNS: The blood pressure was 123/69, pulse 136, respirations 18, temperature 99.1 axillary. Oximetry was 90% on room air. His weight was 188.12 pounds, height 74 inches with a calculated body mass index of 24.2. GENERAL: He was alert and cooperative. His speech was fluent, although at times difficult to understand. He had very poor fund of recent or remote knowledge. Attention and concentration was impaired. He appeared well groomed and well nourished. He was not oriented in the slightest. NEUROLOGIC: Examination of the cranial nerves revealed visual slaazar appeared intact to visual threat. Eyes were conjugate. Extraocular movements were intact with oculocephalic. Face appeared symmetric, although he did not move his left mouth as well as the right. Facial sensation was intact. Muscles of facial expression were fairly symmetric, although limited in the mouth. Hearing was intact to finger rub. The palate arches symmetrically and the tongue was midline with full range of motion. He was able to shrug his shoulders. Neck range of motion was severely limited. His head was tilted to the right and seemed rigid in this position. Attempts at even slowly trying to straighten out the neck were accompanied by severe pain. Muscle bulk was symmetric. Tone was increased in all extremities. He seemed to have difficulty moving the right side more than the left side. He had limited power especially in the legs. He could raise the left leg off the bed, but could not the right. 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 Reflexes were 1/4 in the arms, 1/4 at the knees, absent at the ankles. He withdrew his feet to plantar stimulation. Toes were not upgoing. Coordination testing was impaired on the left with [id number]. He could not do [id number]. Sensory exam appeared intact to pain, light touch, vibration and cold thermal bilaterally. He was not a reliable sensory witness. Gait was not testable. NECK: Auscultation of the carotid arteries did not reveal bruit. HEART: Rhythm was irregular. EXTREMITIES: Peripheral pulses were symmetric at the wrists. There was no edema or cyanosis. REVIEW OF LABORATORY DATA: CBC revealed this morning a normal white blood cell count and platelet count. Hemoglobin was low at 11.8, hematocrit 35.1. Chemistries revealed normal electrolytes, BUN, creatinine and glucose. Lactic acid was not elevated. Calcium was normal as was TSH. Troponin was not elevated. Urine revealed trace blood, small amount of leukocyte esterase, rare red blood cell, occasional white blood cell and a few squamous epithelial cells. There were occasional hyaline casts. MRSA screen was negative. Influenza screening was negative. I reviewed the CT scan of the brain, which was performed without contrast. This revealed extensive atrophy. There were old strokes bifrontally and in the right occipital region with extensive small vessel disease as well, which was chronic. I did not see an acute process. IMPRESSION: The patient is an 86-year-old man who has underlying dementia. The findings on his clinical exam would suggest chronicity, but in discussion with the nursing staff, it sounds as if these are more acute problems. The neck appears rigid to the right. It is possible he has had a bony destructive lesion affecting his neck and caused a myelopathy. He has had bilateral strokes, which may be contributing to his cognitive decline as well, although I cannot say I see any new strokes. RECOMMENDATIONS: I will proceed with a CT scan of the cervical spine to look for a bony destructive lesion. If this is not revealing, an MRI of the cervical spine and head may be indicated to better evaluate the situation. If family becomes available, we can try to get a better history regarding the chronicity of his problems. RISHI VALLE MD DR: SHARI/daniel JOB#: [id number] / [id number] RONY Coker MD, FERILYN MD VASIREDDI, SRINIVASA MD
[2016-07-11] MEDS: TRIAMCINOLONE ACETONIDE 0.1% TOPICAL CREAM 15GM TUBE. TP SCH ×2 (09:00→20:37)
[2016-07-11] MEDS: ASPIRIN ENTERIC COATED 81 MG TABLET.DR. PO SCH (09:01)
[2016-07-11] MEDS: FAMOTIDINE 20 MG TABLET. PO SCH (09:02)
[2016-07-11] MEDS: MEMANTINE 10 MG TABLET. PO SCH ×2 (09:02→20:02)
[2016-07-11] MEDS: AMOXICILLIN/K CLAV 875/125MG TABLET. PO SCH (09:02)
[2016-07-11] MEDS: DONEPEZIL HCL 10 MG TABLET. PO SCH ×2 (09:02→20:02)
[2016-07-11] MEDS: POTASSIUM CHLORIDE 10 MEQ TABLET.ER. PO SCH (09:02)
[2016-07-11] MEDS: DOCUSATE SODIUM 100 MG CAPSULE PO SCH ×2 (09:02→20:02)
[2016-07-11] MEDS: CHOLECALCIFEROL (VITAMIN D3) 1,000 UNIT TABLET PO SCH (09:02)
[2016-07-11] MEDS: METOPROLOL TART IMMED RELEASE 25 MG TABLET PO SCH (09:03)
[2016-07-11] MEDS: AMLODIPINE BESYLATE 5 MG TABLET PO SCH (09:04)
[2016-07-11] MEDS: ESCITALOPRAM 10 MG TABLET. PO SCH (09:06)
[2016-07-11] MEDS ORDERED: KETOROLAC TROMETHAMINE 30 MG/ML SYRINGE. IV ONE (09:30)
--- NOTE | 2016-07-11 09:52 | RAD ---
CT of the cervical spine without contrast, 07/11/2016: History: Neck pain Noncontrast scans were obtained with multiplanar reconstructions produced. The patient's head is rotated to the right on these scans. No fracture or destructive bony lesion is seen. A small sclerotic focus in the C6 vertebral body is probably a bone island. There is moderate hypertrophic spurring at multiple facet joints bilaterally. There is a slight associated spondylolisthesis at C4-5 and at C7-T1. There is moderate disc space narrowing at C5-6 and C6-7 with anterior and posterior marginal spurring. The posterior disc margins are not clearly delineated, however, there are posterior disc bulges at C5-6 and C6-7. The combination of findings is causing mild central spinal stenosis at C5-6 and C6-7. There is moderate foraminal stenosis at multiple levels bilaterally. There is mild calcific plaquing at the carotid bifurcations. Incidental note is made of a moderate volume of right-sided pleural fluid. There are bilateral apical pleural/parenchymal opacities compatible with scarring. IMPRESSION: 1. Moderate multilevel degenerative change as described above. 2. No acute bony abnormality is detected. 3. Moderate-sized right pleural effusion. PQRS Compliance Statement: One or more of the following individualized dose reduction techniques were utilized for this examination: 1. Automated exposure control 2. Adjustment of the mA and/or kV according to patient size 3. Use of iterative reconstruction technique
--- NOTE | 2016-07-11 10:42 | PDOC ---
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 [employer] 07/11/16 1042: CARDIO Progress Notes Date and Time Date of Service 07/11/2016 Time of Evaluation 1042 Subjective Subjective: Other (sleeping & did not arouse) Vitals Vitals Vital Signs Date Time Temp Pulse Resp B/P Pulse Ox O2 Delivery O2 Flow Rate FiO2 07/11/16 09:04 111 144/73 07/11/16 09:03 Room Air 07/11/16 07:10 99.0 20 93 99.0 Weight Weight [ ] Input and Output Intake and Output Intake and Output 07/11/16 07:00 Intake Total 100 ml Output Total 150 ml Balance -50 ml Intake Oral 100 ml Output Urine Total 150 ml # Voids 7 Laboratory Labs Laboratory Tests Test 07/11/16 03:54 White Blood Count 11.2x10^3/uL (4.0-11.0) Red Blood Count 3.61x10^6/uL (4.30-5.70) Hemoglobin 11.3g/dL (13.0-17.5) Hematocrit 34.9% (39.0-53.0) Mean Corpuscular Volume 97fL (79-100) Mean Corpuscular Hemoglobin 31pg (25-35) Mean Corpuscular Hemoglobin Concent 32g/dL (31-37) Red Cell Distribution Width 15.7% (11.5-14.5) Platelet Count 213x10^3/uL (140-400) Neutrophils (%) (Auto) 69% (31-73) Lymphocytes (%) (Auto) 14% (24-48) Monocytes (%) (Auto) 16% (0-9) Eosinophils (%) (Auto) 1% (0-3) Basophils (%) (Auto) 1% (0-3) Neutrophils # (Auto) 7.7x10^3uL (1.8-7.7) Lymphocytes # (Auto) 1.6x10^3/uL (1.0-4.8) Monocytes # (Auto) 1.8x10^3/uL (0.0-1.1) Eosinophils # (Auto) 0.1x10^3/uL (0.0-0.7) Basophils # (Auto) 0.1x10^3/uL (0.0-0.2) Sodium Level 142mmol/L (136-145) Potassium Level 3.7mmol/L (3.5-5.1) Chloride Level 105mmol/L (98-107) Carbon Dioxide Level 26mmol/L (21-32) Anion Gap 11 (6-14) Blood Urea Nitrogen 15mg/dL (8-26) Creatinine 1.2mg/dL (0.7-1.3) Estimated GFR (Cockcroft-Gault) 57.7 Glucose Level 97mg/dL (70-99) Calcium Level 9.1mg/dL (8.5-10.1) Microbiology Micro Microbiology 07/08/16 Blood Culture - Preliminary, Resulted NO GROWTH AFTER 2 DAYS 07/08/16 Urine Culture - Final, Complete 07/08/16 Urine Culture Result 1 (JULIET) - Final, Complete Physical Exam HEENT: No Thyromegaly, Neck Supple W Full Motion Chest: Symmetric LUNGS: Other (coarse anteriorly) Heart: irregularly irregular, other (tele: atrial fib with RVR) Extremities: No Edema Neurology: other (sleeping and did not arouse) Assessment Assessment 1. atrial fib with RVR rates consistently > 100 bolused with Digoxin yesterday increasing metoprolol to 50 mg BID and monitor BP 2. dehydration/pneumonia febrile to 101 yesterday evening, likely exacerbating tachycardia per primary service PETER PALMER MD 07/11/16 2220: CARDIO Progress Notes Plan Plan Pt. seen and examined. 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 Persistent tachycardia overnight, afib with RVR. Now doing better with HR in the 60's. Appears somnolent on exam. Supportive care. Metop increased. Spoke with daughter in law Will follow peripherally. SUGEY SHANE APRN Jul 11, 2016 10:42 PETER PALMER MD Jul 11, 2016 22:20
[2016-07-11] MEDS: CYCLOBENZAPRINE 10 MG TABLET. PO SCH ×3 (10:43→18:00)
[2016-07-11 11:04] VITALS: BP 118/64
--- NOTE | 2016-07-11 12:22 | RAD ---
Indication characterize and further evaluate right pleural effusion. Noncontrast images through the chest were obtained. No prior CT imaging is available. Note is made of a plain film examination of the chest 3 days ago. Imaging through the upper abdomen is unremarkable. No significant mediastinal pathology is seen. Some coronary artery calcification is noted. There is a moderately large right pleural effusion. There is a trace amount of left pleural fluid. Some volume loss is seen in the right lung most compatible with passive atelectasis associated with the pleural fluid. A dominant parenchymal mass is not seen in either aerated lung. IMPRESSION: Moderately large right pleural effusion and trace left. No acute or significant parenchymal finding is seen PQRS Compliance Statement: One or more of the following individualized dose reduction techniques were utilized for this examination: 1. Automated exposure control 2. Adjustment of the mA and/or kV according to patient size 3. Use of iterative reconstruction technique
--- NOTE | 2016-07-11 12:25 | PDOC ---
PULMONARY PROGRESS NOTES Vitals Vital Signs Date Time Temp Pulse Resp B/P Pulse Ox O2 Delivery O2 Flow Rate FiO2 07/11/16 11:04 99.9 128 20 118/64 93 Room Air 99.9 Lungs: Clear Labs Laboratory Tests Test 07/09/16 22:12 07/10/16 03:20 07/11/16 03:54 07/11/16 09:30 Nasal Screen MRSA (PCR) Negative (Negative) White Blood Count 10.8x10^3/uL (4.0-11.0) 11.2x10^3/uL (4.0-11.0) Red Blood Count 3.72x10^6/uL (4.30-5.70) 3.61x10^6/uL (4.30-5.70) Hemoglobin 11.8g/dL (13.0-17.5) 11.3g/dL (13.0-17.5) Hematocrit 35.1% (39.0-53.0) 34.9% (39.0-53.0) Mean Corpuscular Volume 94fL (79-100) 97fL (79-100) Mean Corpuscular Hemoglobin 32pg (25-35) 31pg (25-35) Mean Corpuscular Hemoglobin Concent 34g/dL (31-37) 32g/dL (31-37) Red Cell Distribution Width 15.4% (11.5-14.5) 15.7% (11.5-14.5) Platelet Count 195x10^3/uL (140-400) 213x10^3/uL (140-400) Neutrophils (%) (Auto) 68% (31-73) 69% (31-73) Lymphocytes (%) (Auto) 17% (24-48) 14% (24-48) Monocytes (%) (Auto) 13% (0-9) 16% (0-9) Eosinophils (%) (Auto) 2% (0-3) 1% (0-3) Basophils (%) (Auto) 1% (0-3) 1% (0-3) Neutrophils # (Auto) 7.3x10^3uL (1.8-7.7) 7.7x10^3uL (1.8-7.7) Lymphocytes # (Auto) 1.8x10^3/uL (1.0-4.8) 1.6x10^3/uL (1.0-4.8) Monocytes # (Auto) 1.4x10^3/uL (0.0-1.1) 1.8x10^3/uL (0.0-1.1) Eosinophils # (Auto) 0.2x10^3/uL (0.0-0.7) 0.1x10^3/uL (0.0-0.7) Basophils # (Auto) 0.1x10^3/uL (0.0-0.2) 0.1x10^3/uL (0.0-0.2) Sodium Level 143mmol/L (136-145) 142mmol/L (136-145) Potassium Level 3.9mmol/L (3.5-5.1) 3.7mmol/L (3.5-5.1) Chloride Level 107mmol/L (98-107) 105mmol/L (98-107) Carbon Dioxide Level 26mmol/L (21-32) 26mmol/L (21-32) Anion Gap 10 (6-14) 11 (6-14) Blood Urea Nitrogen 16mg/dL (8-26) 15mg/dL (8-26) Creatinine 1.2mg/dL (0.7-1.3) 1.2mg/dL (0.7-1.3) Estimated GFR (Cockcroft-Gault) 57.7 57.7 Glucose Level 98mg/dL (70-99) 97mg/dL (70-99) Calcium Level 8.9mg/dL (8.5-10.1) 9.1mg/dL (8.5-10.1) Erythrocyte Sedimentation Rate 104 (0-15) Laboratory Tests Test 07/11/16 03:54 07/11/16 09:30 White Blood Count 11.2x10^3/uL (4.0-11.0) Red Blood Count 3.61x10^6/uL (4.30-5.70) Hemoglobin 11.3g/dL (13.0-17.5) Hematocrit 34.9% (39.0-53.0) Mean Corpuscular Volume 97fL (79-100) Mean Corpuscular Hemoglobin 31pg (25-35) Mean Corpuscular Hemoglobin Concent 32g/dL (31-37) Red Cell Distribution Width 15.7% (11.5-14.5) Platelet Count 213x10^3/uL (140-400) Neutrophils (%) (Auto) 69% (31-73) Lymphocytes (%) (Auto) 14% (24-48) Monocytes (%) (Auto) 16% (0-9) Eosinophils (%) (Auto) 1% (0-3) Basophils (%) (Auto) 1% (0-3) Neutrophils # (Auto) 7.7x10^3uL (1.8-7.7) Lymphocytes # (Auto) 1.6x10^3/uL (1.0-4.8) Monocytes # (Auto) 1.8x10^3/uL (0.0-1.1) Eosinophils # (Auto) 0.1x10^3/uL (0.0-0.7) Basophils # (Auto) 0.1x10^3/uL (0.0-0.2) Sodium Level 142mmol/L (136-145) Potassium Level 3.7mmol/L (3.5-5.1) Chloride Level 105mmol/L (98-107) Carbon Dioxide Level 26mmol/L (21-32) Anion Gap 11 (6-14) Blood Urea Nitrogen 15mg/dL (8-26) Creatinine 1.2mg/dL (0.7-1.3) Estimated GFR (Cockcroft-Gault) 57.7 Glucose Level 97mg/dL (70-99) Calcium Level 9.1mg/dL (8.5-10.1) Erythrocyte Sedimentation Rate 104 (0-15) Medications Active Scripts Medications Dose Route/Sig Days Date Category Zoloft (Sertraline Hcl) 50 Mg Tablet 50 Mg PO HS 07/09/16 Reported Xanax (Alprazolam) 0.25 Mg Tablet 0.25 Mg PO PRN Q8HRS PRN 07/09/16 Reported Vitamin D3 (Cholecalciferol (Vitamin D3)) 1,000 Unit Tablet 1,000 Unit PO DAILY 07/09/16 Reported Acetaminophen 325 Mg Tablet 600 Mg PO PRN Q6HRS PRN 3/18/17 Reported Triamcinolone Acetonide 80 Gm Oint...g. 80 Gm TP BID 07/09/16 Reported Tamsulosin Hcl 0.4 Mg Cap.er.24h 0.4 Mg PO DAILY 07/09/16 Reported Potassium Chloride 10 Meq Capsule.er 10 Meq PO DAILY 07/09/16 Reported Namenda Xr (Memantine Hcl) 28 Mg Cap.spr.24 28 Mg PO DAILY 07/09/16 Reported Melatonin 3 Mg Tablet 3 Mg PO QHS 07/09/16 Reported Escitalopram Oxalate 10 Mg Tablet 10 Mg PO DAILY 07/09/16 Reported Famotidine 20 Mg Tablet 20 Mg PO BID 07/09/16 Reported Doxycycline Monohydrate 100 Mg Capsule 100 Mg PO BID 07/09/16 Reported Donepezil Hcl 23 Mg Tablet 23 Mg PO DAILY 07/09/16 Reported Colace (Docusate Sodium) 100 Mg Capsule 100 Mg PO BID 07/09/16 Reported Acidophilus Lactobacillus (Lactobacillus Acidophilus) 1 Each Capsule 1 Each PO HS 07/09/16 Reported Metoprolol Tartrate 25 Mg Tablet 1 Tab PO DAILY 07/09/16 Reported Amlodipine Besylate 5 Mg Tablet 5 Mg PO DAILY 07/09/16 Reported Impression . RIGHT EFFUSION SEE DICTATED NOTE PT TO LET ME KNOW IF THEY WISH TO PROCEED WITH THORACENTESIS NICOLETTE COELHO MD Jul 11, 2016 12:25
--- NOTE | 2016-07-11 12:33 | PDOC ---
PROGRESS NOTES Assessment Problems Medical Problems: (1) Pneumonia Status: Acute (2) Tachycardia Status: Acute Musculoskeletal neck pain without radiculopathy or myelopathy. CT shows only degenerative changes Various arthralgias elsewhere in the body give the appearance of paresis, but he is simply splinting due to pain. Alzheimer's disease Plan Trial of Toradol and scheduled cyclobenzaprine instead of PRN Consider pain-clinic modalities I don't think he would tolerate physical therapy at this time Discussed with patient's daughter. Subjective Complaints of neck pain Objective Vital Signs Date Time Temp Pulse Resp B/P Pulse Ox O2 Delivery O2 Flow Rate FiO2 07/11/16 11:04 99.9 128 20 118/64 93 Room Air 99.9 Intake and Output 07/11/16 07:00 Intake Total 100 ml Output Total 150 ml Balance -50 ml Intake Oral 100 ml Output Urine Total 150 ml # Voids 7 PHYSICAL EXAM Alert. Follows commands, not very verbal, oriented only to person PERRL. EOMI. CN: no focal findings. Muscle tone: normal. Muscle strength: splints right arm, left leg, due to pain, diffusely 3/5 DTR: 1+ Plantar reflex: flexor Gait: not examined in bed. Sensory exam: no abnormal findings. No cerebellar signs elicited. Review of Relevant I have reviewed the following items donald (where applicable) has been applied. Labs Laboratory Tests Test 07/09/16 22:12 07/10/16 03:20 07/11/16 03:54 07/11/16 09:30 Nasal Screen MRSA (PCR) Negative (Negative) White Blood Count 10.8x10^3/uL (4.0-11.0) 11.2x10^3/uL (4.0-11.0) Red Blood Count 3.72x10^6/uL (4.30-5.70) 3.61x10^6/uL (4.30-5.70) Hemoglobin 11.8g/dL (13.0-17.5) 11.3g/dL (13.0-17.5) Hematocrit 35.1% (39.0-53.0) 34.9% (39.0-53.0) Mean Corpuscular Volume 94fL (79-100) 97fL (79-100) Mean Corpuscular Hemoglobin 32pg (25-35) 31pg (25-35) Mean Corpuscular Hemoglobin Concent 34g/dL (31-37) 32g/dL (31-37) Red Cell Distribution Width 15.4% (11.5-14.5) 15.7% (11.5-14.5) Platelet Count 195x10^3/uL (140-400) 213x10^3/uL (140-400) Neutrophils (%) (Auto) 68% (31-73) 69% (31-73) Lymphocytes (%) (Auto) 17% (24-48) 14% (24-48) Monocytes (%) (Auto) 13% (0-9) 16% (0-9) Eosinophils (%) (Auto) 2% (0-3) 1% (0-3) Basophils (%) (Auto) 1% (0-3) 1% (0-3) Neutrophils # (Auto) 7.3x10^3uL (1.8-7.7) 7.7x10^3uL (1.8-7.7) Lymphocytes # (Auto) 1.8x10^3/uL (1.0-4.8) 1.6x10^3/uL (1.0-4.8) Monocytes # (Auto) 1.4x10^3/uL (0.0-1.1) 1.8x10^3/uL (0.0-1.1) Eosinophils # (Auto) 0.2x10^3/uL (0.0-0.7) 0.1x10^3/uL (0.0-0.7) Basophils # (Auto) 0.1x10^3/uL (0.0-0.2) 0.1x10^3/uL (0.0-0.2) Sodium Level 143mmol/L (136-145) 142mmol/L (136-145) Potassium Level 3.9mmol/L (3.5-5.1) 3.7mmol/L (3.5-5.1) Chloride Level 107mmol/L (98-107) 105mmol/L (98-107) Carbon Dioxide Level 26mmol/L (21-32) 26mmol/L (21-32) Anion Gap 10 (6-14) 11 (6-14) Blood Urea Nitrogen 16mg/dL (8-26) 15mg/dL (8-26) Creatinine 1.2mg/dL (0.7-1.3) 1.2mg/dL (0.7-1.3) Estimated GFR (Cockcroft-Gault) 57.7 57.7 Glucose Level 98mg/dL (70-99) 97mg/dL (70-99) Calcium Level 8.9mg/dL (8.5-10.1) 9.1mg/dL (8.5-10.1) Erythrocyte Sedimentation Rate 104 (0-15) Laboratory Tests Test 07/11/16 03:54 07/11/16 09:30 White Blood Count 11.2x10^3/uL (4.0-11.0) Red Blood Count 3.61x10^6/uL (4.30-5.70) Hemoglobin 11.3g/dL (13.0-17.5) Hematocrit 34.9% (39.0-53.0) Mean Corpuscular Volume 97fL (79-100) Mean Corpuscular Hemoglobin 31pg (25-35) Mean Corpuscular Hemoglobin Concent 32g/dL (31-37) Red Cell Distribution Width 15.7% (11.5-14.5) Platelet Count 213x10^3/uL (140-400) Neutrophils (%) (Auto) 69% (31-73) Lymphocytes (%) (Auto) 14% (24-48) Monocytes (%) (Auto) 16% (0-9) Eosinophils (%) (Auto) 1% (0-3) Basophils (%) (Auto) 1% (0-3) Neutrophils # (Auto) 7.7x10^3uL (1.8-7.7) Lymphocytes # (Auto) 1.6x10^3/uL (1.0-4.8) Monocytes # (Auto) 1.8x10^3/uL (0.0-1.1) Eosinophils # (Auto) 0.1x10^3/uL (0.0-0.7) Basophils # (Auto) 0.1x10^3/uL (0.0-0.2) Sodium Level 142mmol/L (136-145) Potassium Level 3.7mmol/L (3.5-5.1) Chloride Level 105mmol/L (98-107) Carbon Dioxide Level 26mmol/L (21-32) Anion Gap 11 (6-14) Blood Urea Nitrogen 15mg/dL (8-26) Creatinine 1.2mg/dL (0.7-1.3) Estimated GFR (Cockcroft-Gault) 57.7 Glucose Level 97mg/dL (70-99) Calcium Level 9.1mg/dL (8.5-10.1) Erythrocyte Sedimentation Rate 104 (0-15) Microbiology 07/08/16 Blood Culture - Preliminary, Resulted NO GROWTH AFTER 2 DAYS 07/08/16 Urine Culture - Final, Complete 07/08/16 Urine Culture Result 1 (JULIET) - Final, Complete Medications Current Medications Vancomycin HCl (Vanco Per Pharmacy) 1 each PRN DAILY PRN MC SEE COMMENTS Last administered on 07/09/16 14:10; Start 07/08/16 at 20:30; Stop 07/09/16 at 17:10 ; Status DC Piperacillin Sod/ Tazobactam Sod 1 each 1 each PRN DAILY PRN MC SEE COMMENTS; Start 07/08/16 at 20:30; Stop 07/09/16 at 16:57; Status DC Sodium Chloride 500 ml @ 500 mls/hr 1X ONCE IV Last administered on 21:22; Start 07/08/16 at 20:45; Stop 07/08/16 at 21:44; Status DC Piperacillin Sod/ Tazobactam Sod 3.375 gm/Sodium Chloride 50 ml @ 100 mls/hr 1X ONCE IV Last administered on 07/08/16 21:00; Start 07/08/16 at 21:00; Stop 07/09/16 at 15:38; Status DC Vancomycin HCl/ Sodium Chloride (Iv Sodium Chloride 0.9% 500ml Bag) 500 ml @ 250 mls/hr 1X ONCE IV Last administered on 07/08/16 21:00; Start 07/08/16 at 21:00; Stop 07/09/16 at 15:38; Status DC Ondansetron HCl (Zofran) 4 mg PRN Q8HRS PRN IV NAUSEA/VOMITING; Start 07/08/16 at 23:00; Stop 07/08/16 at 23:15; Status DC Morphine Sulfate 2 mg 2 mg PRN Q2HR PRN IV SEVERE PAIN; Start 07/08/16 at 23:00 ; Stop 07/09/16 at 22:59; Status DC Sodium Chloride (Iv Sodium Chloride 0.9% 1000ml Bag) 1,000 ml @ 50 mls/hr Q20H IV Last administered on 07/09/16 03:09; Start 07/08/16 at 22:59; Stop at 22:58; Status DC Acetaminophen 650 mg 650 mg PRN Q4HRS PRN PO FEVER; Start 07/08/16 at 23:00; Stop 07/09/16 at 11:33; Status DC Piperacillin Sod/ Tazobactam Sod 3.375 gm/Sodium Chloride 50 ml @ 100 mls/hr Q6HRS IV Last administered on 07/09/16 12:34; Start 07/09/16 at 06:00; Stop at 15:38; Status DC Vancomycin HCl/ Sodium Chloride (Iv Sodium Chloride 0.9% 250ml) 250 ml @ 167 mls/hr Q24H IV ; Start 07/09/16 at 21:00; Stop 07/09/16 at 21:00; Status DC Vancomycin HCl 1 each 1X ONCE MC ; Start 07/10/16 at 20:30; Stop 07/10/16 at 20 :30; Status DC Acetaminophen (Tylenol) 325 mg PRN Q6HRS PRN PO MILD PAIN / TEMP Last administered on 07/11/16 10:44; Start 07/09/16 at 09:30 Acetaminophen/ Hydrocodone Bitart (Lortab 5/325) 1 tab PRN Q6HRS PRN PO MODERATE TO SEVERE PAIN; Start 07/09/16 at 09:30; Stop 07/09/16 at 14:08; Status DC Hydralazine HCl (Apresoline) 10 mg PRN Q4HRS PRN IVP ELEVATED BP, SEE COMMENTS ; Start 07/09/16 at 09:30; Stop 07/09/16 at 14:08; Status DC Ondansetron HCl (Zofran) 4 mg PRN Q8HRS PRN IV NAUSEA/VOMITING; Start 07/09/16 at 09:30 Albuterol Sulfate (Ventolin Neb Soln) 2.5 mg PRN Q4HRS PRN NEB SHORTNESS OF BREATH; Start 07/09/16 at 09:30 Cyclobenzaprine HCl (Flexeril) 5 mg PRN Q6HRS PRN PO MUSCLE SPASMS Last administered on 07/10/16 13:24; Start 07/09/16 at 11:30; Stop 07/11/16 at 09:30 ; Status DC Amlodipine Besylate (Norvasc) 5 mg DAILY PO ; Start 07/09/16 at 12:00; Status Cancel Metoprolol Tartrate (Lopressor) 25 mg DAILY PO Last administered on 07/10/16 09:53; Start 07/09/16 at 17:00; Stop 07/10/16 at 14:08; Status DC Acetaminophen (Tylenol) 325 mg PRN Q6HRS PRN PO MILD PAIN / TEMP; Start at 11:30; Stop 07/09/16 at 11:35; Status DC Acetaminophen/ Hydrocodone Bitart (Lortab 5/325) 1 tab PRN Q6HRS PRN PO MODERATE TO SEVERE PAIN Last administered on 07/11/16 09:03; Start 07/09/16 at 11:30 Hydralazine HCl (Apresoline) 10 mg PRN Q4HRS PRN IVP ELEVATED BP, SEE COMMENTS ; Start 07/09/16 at 11:30 Ondansetron HCl (Zofran) 4 mg PRN Q8HRS PRN IV NAUSEA/VOMITING; Start 07/09/16 at 11:30; Stop 07/09/16 at 11:35; Status DC Albuterol Sulfate (Ventolin Neb Soln) 2.5 mg PRN Q4HRS PRN NEB SHORTNESS OF BREATH; Start 07/09/16 at 11:30; Stop 07/09/16 at 11:36; Status DC Amlodipine Besylate (Norvasc) 5 mg DAILY PO Last administered on 07/11/16 09: 04; Start 07/09/16 at 16:00 Amoxicillin/ Clavulanate Potassium (Augmentin 875/ 125mg) 1 tab BID PO Last administered on 07/11/16 09:02; Start 07/09/16 at 21:00 Enoxaparin Sodium (Lovenox 40mg Syringe) 40 mg QHS SQ Last administered on 07/10 21:04; Start 07/09/16 at 21:00 Acetaminophen (Tylenol) 600 mg PRN Q6HRS PRN PO MILD PAIN / TEMP; Start at 16:00 Alprazolam (Xanax) 0.25 mg PRN Q8HRS PRN PO ANXIETY / AGITATION; Start at 16:00 Vitamin D (Vitamin D3) 1,000 unit DAILY PO Last administered on 07/11/16 09:02 ; Start 07/10/16 at 09:00 Docusate Sodium (Colace) 100 mg BID PO Last administered on 07/11/16 09:02; Start 07/09/16 at 21:00 Escitalopram Oxalate (Lexapro) 10 mg DAILY PO Last administered on 07/11/16 09 :06; Start 07/10/16 at 09:00 Famotidine (Pepcid) 20 mg BID PO Last administered on 07/11/16 09:02; Start at 21:00 Sertraline HCl (Zoloft) 50 mg HS PO Last administered on 07/10/16 21:03; Start 07/09/16 at 21:00 Tamsulosin HCl (Flomax) 0.4 mg QHS PO Last administered on 07/10/16 21:04; Start 07/10/16 at 21:00 Donepezil HCl (Aricept) 10 mg BID PO Last administered on 07/11/16 09:02; Start 07/09/16 at 21:00 Non-Formulary Medication 100 mg BID PO ; Start 07/09/16 at 21:00; Stop 07/09/16 at 21:00; Status DC Lactobacillus Acidophilus (Bacid, Apple-Bid) 1 tab QHS PO Last administered on 21:03; Start 07/10/16 at 21:00 Non-Formulary Medication 3 mg QHS PO ; Start 07/09/16 at 21:00; Stop 07/09/16 at 21:00; Status DC Memantine (Namenda) 10 mg BID PO Last administered on 07/11/16 09:02; Start at 21:00 Potassium Chloride (Klor-Con) 10 meq [id number] PO Last administered on 09:02; Start 07/10/16 at 08:00 Triamcinolone Acetonide 1 alaina 1 alaina BID TP Last administered on 07/10/16 21:04 ; Start 07/09/16 at 21:00 Sodium Chloride (Iv Sodium Chloride 0.9% 1000ml Bag) 1,000 ml @ 1,000 mls/hr 1X ONCE IV Last administered on 07/10/16 09:53; Start 07/10/16 at 09:45; Stop 07/10/16 at 10:44; Status DC Metoprolol Tartrate (Lopressor) 25 mg BID PO Last administered on 07/11/16 09: 03; Start 07/10/16 at 21:00; Stop 07/11/16 at 10:41; Status DC Aspirin (Ecotrin) 81 mg [id number] PO Last administered on 07/11/16 09:01; Start 07/10/16 at 15:00 Digoxin (Lanoxin) 250 mcg 1X ONCE IV Last administered on 07/10/16 18:22; Start 07/10/16 at 17:30; Stop 07/10/16 at 17:33; Status DC Cyclobenzaprine HCl (Flexeril) 5 mg Q6HRS PO Last administered on 07/11/16 10: 43; Start 07/11/16 at 09:30; Stop 07/12/16 at 18:00 Ketorolac Tromethamine (Toradol) 30 mg 1X ONCE IV Last administered on 10:44; Start 07/11/16 at 09:30; Stop 07/11/16 at 09:31; Status DC Metoprolol Tartrate (Lopressor) 50 mg BID PO ; Start 07/11/16 at 21:00 Active Scripts Active Reported Zoloft (Sertraline Hcl) 50 Mg Tablet 50 Mg PO HS Xanax (Alprazolam) 0.25 Mg Tablet 0.25 Mg PO PRN Q8HRS PRN Vitamin D3 (Cholecalciferol (Vitamin D3)) 1,000 Unit Tablet 1,000 Unit PO DAILY Acetaminophen 325 Mg Tablet 600 Mg PO PRN Q6HRS PRN Triamcinolone Acetonide 80 Gm Oint...g. 80 Gm TP BID Tamsulosin Hcl 0.4 Mg Cap.er.24h 0.4 Mg PO DAILY Potassium Chloride 10 Meq Capsule.er 10 Meq PO DAILY Namenda Xr (Memantine Hcl) 28 Mg Cap.spr.24 28 Mg PO DAILY Melatonin 3 Mg Tablet 3 Mg PO QHS Escitalopram Oxalate 10 Mg Tablet 10 Mg PO DAILY Famotidine 20 Mg Tablet 20 Mg PO BID Doxycycline Monohydrate 100 Mg Capsule 100 Mg PO BID Donepezil Hcl 23 Mg Tablet 23 Mg PO DAILY Colace (Docusate Sodium) 100 Mg Capsule 100 Mg PO BID Acidophilus Lactobacillus (Lactobacillus Acidophilus) 1 Each Capsule 1 Each PO HS Metoprolol Tartrate 25 Mg Tablet 1 Tab PO DAILY Amlodipine Besylate 5 Mg Tablet 5 Mg PO DAILY Vitals/I & O Vital Sign - Last 24 Hours 07/10/16 07/10/16 07/10/16 07/10/16 15:00 18:22 19:00 20:00 Temp 99.1 99.5 99.1 99.5 Pulse 112 136 136 Resp 17 B/P 123/69 123/69 137/83 Pulse Ox 90 91 O2 Delivery Room Air Room Air Room Air 07/10/16 07/10/16 07/11/16 07/11/16 21:04 23:00 03:14 04:59 Temp 101.0 99.3 99.5 101.0 99.3 99.5 Pulse 136 112 117 Resp 16 B/P 137/83 130/74 128/61 Pulse Ox 93 93 O2 Delivery Room Air Room Air 07/11/16 07/11/16 07/11/16 07/11/16 07:10 07:41 09:03 09:03 Temp 99.0 99.0 Pulse 111 111 Resp 20 B/P 144/73 144/73 Pulse Ox 93 O2 Delivery Room Air Room Air Room Air 07/11/16 07/11/16 07/11/16 09:04 10:42 11:04 Temp 99.9 99.9 Pulse 111 128 Resp 20 B/P 144/73 118/64 Pulse Ox 93 O2 Delivery Room Air Room Air Intake and Output 07/10/16 07/10/16 07/11/16 15:00 23:00 07:00 Intake Total 100 ml Output Total 150 ml Balance -[address] cervical: The patient's head is rotated to the right on these scans. No fracture or destructive bony lesion is seen. A small sclerotic focus in the C6 vertebral body is probably a bone island. There is moderate hypertrophic spurring at multiple facet joints bilaterally. There is a slight associated spondylolisthesis at C4-5 and at C7-T1. There is moderate disc space narrowing at C5-6 and C6-7 with anterior and posterior marginal spurring. The posterior disc margins are not clearly delineated, however, there are posterior disc bulges at C5-6 and C6-7. The combination of findings is causing mild central spinal stenosis at C5-6 and C6-7. There is moderate foraminal stenosis at multiple levels bilaterally. There is mild calcific plaquing at the carotid bifurcations. Incidental note is made of a moderate volume of right-sided pleural fluid. There are bilateral apical pleural/parenchymal opacities compatible with scarring. IMPRESSION: 1. Moderate multilevel degenerative change as described above. 2. No acute bony abnormality is detected. 3. Moderate-sized right pleural effusion. RONY DURÁN MD Jul 11, 2016 12:33
[2016-07-11] MEDS ORDERED: PIP/TAZO PER PHARMACY MC PRN (14:00)
--- NOTE | 2016-07-11 14:06 | PDOC ---
PROGRESS NOTES Chief Complaint Chief Complaint a/p 1. Severe dehydration. 2. Decreased oral intake, failure to thrive. 3. Hypertension. 4. Atrial fibrillation with RVR 5. Neck pain possible due to spasm 6. Dementia severe 7. dysphagia, 2/2 dementia likely 8. neck DJD 9. right pleural effusion with possible asp PNA Plan Flexeril iv hydration add iv metoprolol since npo fu with neuro, cad. ct chest , get pulm consult, may need thoracentesis npo PT/OT dc Augmentin, add zosyn for now dvt, gi ppx failed swallow 07/11 History of Present Illness History of Present Illness fever very weak and confused barely able to move left side right hand can pull my fingers failed swallow still tachycardia with afib at 100s Vitals Vitals Vital Signs Date Time Temp Pulse Resp B/P Pulse Ox O2 Delivery O2 Flow Rate FiO2 07/11/16 11:04 99.9 128 20 118/64 93 Room Air 99.9 Physical Exam Physical Exam aaox1 to person only General: Alert Heart: Normal S1, Normal S2, Other (irregular) Lungs: Other (right side decreased bs) Abdomen: Normal bowel sounds, Soft Extremities: No clubbing, No cyanosis Labs LABS Laboratory Tests Test 07/11/16 03:54 07/11/16 09:30 White Blood Count 11.2x10^3/uL (4.0-11.0) Red Blood Count 3.61x10^6/uL (4.30-5.70) Hemoglobin 11.3g/dL (13.0-17.5) Hematocrit 34.9% (39.0-53.0) Mean Corpuscular Volume 97fL (79-100) Mean Corpuscular Hemoglobin 31pg (25-35) Mean Corpuscular Hemoglobin Concent 32g/dL (31-37) Red Cell Distribution Width 15.7% (11.5-14.5) Platelet Count 213x10^3/uL (140-400) Neutrophils (%) (Auto) 69% (31-73) Lymphocytes (%) (Auto) 14% (24-48) Monocytes (%) (Auto) 16% (0-9) Eosinophils (%) (Auto) 1% (0-3) Basophils (%) (Auto) 1% (0-3) Neutrophils # (Auto) 7.7x10^3uL (1.8-7.7) Lymphocytes # (Auto) 1.6x10^3/uL (1.0-4.8) Monocytes # (Auto) 1.8x10^3/uL (0.0-1.1) Eosinophils # (Auto) 0.1x10^3/uL (0.0-0.7) Basophils # (Auto) 0.1x10^3/uL (0.0-0.2) Sodium Level 142mmol/L (136-145) Potassium Level 3.7mmol/L (3.5-5.1) Chloride Level 105mmol/L (98-107) Carbon Dioxide Level 26mmol/L (21-32) Anion Gap 11 (6-14) Blood Urea Nitrogen 15mg/dL (8-26) Creatinine 1.2mg/dL (0.7-1.3) Estimated GFR (Cockcroft-Gault) 57.7 Glucose Level 97mg/dL (70-99) Calcium Level 9.1mg/dL (8.5-10.1) Erythrocyte Sedimentation Rate 104 (0-15) Review of Systems Review of Systems no chills, sob or chest pain Assessment and Plan Assessmemt and Plan Problems Medical Problems: (1) Pneumonia Status: Acute (2) Tachycardia Status: Acute Problems: Comment Review of Relevant I have reviewed the following items donald (where applicable) has been applied. Labs Laboratory Tests Test 07/09/16 22:12 07/10/16 03:20 07/11/16 03:54 07/11/16 09:30 Nasal Screen MRSA (PCR) Negative (Negative) White Blood Count 10.8x10^3/uL (4.0-11.0) 11.2x10^3/uL (4.0-11.0) Red Blood Count 3.72x10^6/uL (4.30-5.70) 3.61x10^6/uL (4.30-5.70) Hemoglobin 11.8g/dL (13.0-17.5) 11.3g/dL (13.0-17.5) Hematocrit 35.1% (39.0-53.0) 34.9% (39.0-53.0) Mean Corpuscular Volume 94fL (79-100) 97fL (79-100) Mean Corpuscular Hemoglobin 32pg (25-35) 31pg (25-35) Mean Corpuscular Hemoglobin Concent 34g/dL (31-37) 32g/dL (31-37) Red Cell Distribution Width 15.4% (11.5-14.5) 15.7% (11.5-14.5) Platelet Count 195x10^3/uL (140-400) 213x10^3/uL (140-400) Neutrophils (%) (Auto) 68% (31-73) 69% (31-73) Lymphocytes (%) (Auto) 17% (24-48) 14% (24-48) Monocytes (%) (Auto) 13% (0-9) 16% (0-9) Eosinophils (%) (Auto) 2% (0-3) 1% (0-3) Basophils (%) (Auto) 1% (0-3) 1% (0-3) Neutrophils # (Auto) 7.3x10^3uL (1.8-7.7) 7.7x10^3uL (1.8-7.7) Lymphocytes # (Auto) 1.8x10^3/uL (1.0-4.8) 1.6x10^3/uL (1.0-4.8) Monocytes # (Auto) 1.4x10^3/uL (0.0-1.1) 1.8x10^3/uL (0.0-1.1) Eosinophils # (Auto) 0.2x10^3/uL (0.0-0.7) 0.1x10^3/uL (0.0-0.7) Basophils # (Auto) 0.1x10^3/uL (0.0-0.2) 0.1x10^3/uL (0.0-0.2) Sodium Level 143mmol/L (136-145) 142mmol/L (136-145) Potassium Level 3.9mmol/L (3.5-5.1) 3.7mmol/L (3.5-5.1) Chloride Level 107mmol/L (98-107) 105mmol/L (98-107) Carbon Dioxide Level 26mmol/L (21-32) 26mmol/L (21-32) Anion Gap 10 (6-14) 11 (6-14) Blood Urea Nitrogen 16mg/dL (8-26) 15mg/dL (8-26) Creatinine 1.2mg/dL (0.7-1.3) 1.2mg/dL (0.7-1.3) Estimated GFR (Cockcroft-Gault) 57.7 57.7 Glucose Level 98mg/dL (70-99) 97mg/dL (70-99) Calcium Level 8.9mg/dL (8.5-10.1) 9.1mg/dL (8.5-10.1) Erythrocyte Sedimentation Rate 104 (0-15) Laboratory Tests Test 07/11/16 03:54 07/11/16 09:30 White Blood Count 11.2x10^3/uL (4.0-11.0) Red Blood Count 3.61x10^6/uL (4.30-5.70) Hemoglobin 11.3g/dL (13.0-17.5) Hematocrit 34.9% (39.0-53.0) Mean Corpuscular Volume 97fL (79-100) Mean Corpuscular Hemoglobin 31pg (25-35) Mean Corpuscular Hemoglobin Concent 32g/dL (31-37) Red Cell Distribution Width 15.7% (11.5-14.5) Platelet Count 213x10^3/uL (140-400) Neutrophils (%) (Auto) 69% (31-73) Lymphocytes (%) (Auto) 14% (24-48) Monocytes (%) (Auto) 16% (0-9) Eosinophils (%) (Auto) 1% (0-3) Basophils (%) (Auto) 1% (0-3) Neutrophils # (Auto) 7.7x10^3uL (1.8-7.7) Lymphocytes # (Auto) 1.6x10^3/uL (1.0-4.8) Monocytes # (Auto) 1.8x10^3/uL (0.0-1.1) Eosinophils # (Auto) 0.1x10^3/uL (0.0-0.7) Basophils # (Auto) 0.1x10^3/uL (0.0-0.2) Sodium Level 142mmol/L (136-145) Potassium Level 3.7mmol/L (3.5-5.1) Chloride Level 105mmol/L (98-107) Carbon Dioxide Level 26mmol/L (21-32) Anion Gap 11 (6-14) Blood Urea Nitrogen 15mg/dL (8-26) Creatinine 1.2mg/dL (0.7-1.3) Estimated GFR (Cockcroft-Gault) 57.7 Glucose Level 97mg/dL (70-99) Calcium Level 9.1mg/dL (8.5-10.1) Erythrocyte Sedimentation Rate 104 (0-15) Microbiology 07/08/16 Blood Culture - Preliminary, Resulted NO GROWTH AFTER 2 DAYS 07/08/16 Urine Culture - Final, Complete 07/08/16 Urine Culture Result 1 (JULIET) - Final, Complete Medications Current Medications Vancomycin HCl (Vanco Per Pharmacy) 1 each PRN DAILY PRN MC SEE COMMENTS Last administered on 07/09/16 14:10; Start 07/08/16 at 20:30; Stop 07/09/16 at 17:10 ; Status DC Piperacillin Sod/ Tazobactam Sod 1 each 1 each PRN DAILY PRN MC SEE COMMENTS; Start 07/08/16 at 20:30; Stop 07/09/16 at 16:57; Status DC Sodium Chloride 500 ml @ 500 mls/hr 1X ONCE IV Last administered on 21:22; Start 07/08/16 at 20:45; Stop 07/08/16 at 21:44; Status DC Piperacillin Sod/ Tazobactam Sod 3.375 gm/Sodium Chloride 50 ml @ 100 mls/hr 1X ONCE IV Last administered on 07/08/16 21:00; Start 07/08/16 at 21:00; Stop 07/09/16 at 15:38; Status DC Vancomycin HCl/ Sodium Chloride (Iv Sodium Chloride 0.9% 500ml Bag) 500 ml @ 250 mls/hr 1X ONCE IV Last administered on 07/08/16 21:00; Start 07/08/16 at 21:00; Stop 07/09/16 at 15:38; Status DC Ondansetron HCl (Zofran) 4 mg PRN Q8HRS PRN IV NAUSEA/VOMITING; Start 07/08/16 at 23:00; Stop 07/08/16 at 23:15; Status DC Morphine Sulfate 2 mg 2 mg PRN Q2HR PRN IV SEVERE PAIN; Start 07/08/16 at 23:00 ; Stop 07/09/16 at 22:59; Status DC Sodium Chloride (Iv Sodium Chloride 0.9% 1000ml Bag) 1,000 ml @ 50 mls/hr Q20H IV Last administered on 07/09/16 03:09; Start 07/08/16 at 22:59; Stop at 22:58; Status DC Acetaminophen 650 mg 650 mg PRN Q4HRS PRN PO FEVER; Start 07/08/16 at 23:00; Stop 07/09/16 at 11:33; Status DC Piperacillin Sod/ Tazobactam Sod 3.375 gm/Sodium Chloride 50 ml @ 100 mls/hr Q6HRS IV Last administered on 07/09/16 12:34; Start 07/09/16 at 06:00; Stop at 15:38; Status DC Vancomycin HCl/ Sodium Chloride (Iv Sodium Chloride 0.9% 250ml) 250 ml @ 167 mls/hr Q24H IV ; Start 07/09/16 at 21:00; Stop 07/09/16 at 21:00; Status DC Vancomycin HCl 1 each 1X ONCE MC ; Start 07/10/16 at 20:30; Stop 07/10/16 at 20 :30; Status DC Acetaminophen (Tylenol) 325 mg PRN Q6HRS PRN PO MILD PAIN / TEMP Last administered on 07/11/16 10:44; Start 07/09/16 at 09:30 Acetaminophen/ Hydrocodone Bitart (Lortab 5/325) 1 tab PRN Q6HRS PRN PO MODERATE TO SEVERE PAIN; Start 07/09/16 at 09:30; Stop 07/09/16 at 14:08; Status DC Hydralazine HCl (Apresoline) 10 mg PRN Q4HRS PRN IVP ELEVATED BP, SEE COMMENTS ; Start 07/09/16 at 09:30; Stop 07/09/16 at 14:08; Status DC Ondansetron HCl (Zofran) 4 mg PRN Q8HRS PRN IV NAUSEA/VOMITING; Start 07/09/16 at 09:30 Albuterol Sulfate (Ventolin Neb Soln) 2.5 mg PRN Q4HRS PRN NEB SHORTNESS OF BREATH; Start 07/09/16 at 09:30 Cyclobenzaprine HCl (Flexeril) 5 mg PRN Q6HRS PRN PO MUSCLE SPASMS Last administered on 07/10/16 13:24; Start 07/09/16 at 11:30; Stop 07/11/16 at 09:30 ; Status DC Amlodipine Besylate (Norvasc) 5 mg DAILY PO ; Start 07/09/16 at 12:00; Status Cancel Metoprolol Tartrate (Lopressor) 25 mg DAILY PO Last administered on 07/10/16 09:53; Start 07/09/16 at 17:00; Stop 07/10/16 at 14:08; Status DC Acetaminophen (Tylenol) 325 mg PRN Q6HRS PRN PO MILD PAIN / TEMP; Start at 11:30; Stop 07/09/16 at 11:35; Status DC Acetaminophen/ Hydrocodone Bitart (Lortab 5/325) 1 tab PRN Q6HRS PRN PO MODERATE TO SEVERE PAIN Last administered on 07/11/16 09:03; Start 07/09/16 at 11:30 Hydralazine HCl (Apresoline) 10 mg PRN Q4HRS PRN IVP ELEVATED BP, SEE COMMENTS ; Start 07/09/16 at 11:30 Ondansetron HCl (Zofran) 4 mg PRN Q8HRS PRN IV NAUSEA/VOMITING; Start 07/09/16 at 11:30; Stop 07/09/16 at 11:35; Status DC Albuterol Sulfate (Ventolin Neb Soln) 2.5 mg PRN Q4HRS PRN NEB SHORTNESS OF BREATH; Start 07/09/16 at 11:30; Stop 07/09/16 at 11:36; Status DC Amlodipine Besylate (Norvasc) 5 mg DAILY PO Last administered on 07/11/16 09: 04; Start 07/09/16 at 16:00 Amoxicillin/ Clavulanate Potassium (Augmentin 875/ 125mg) 1 tab BID PO Last administered on 07/11/16 09:02; Start 07/09/16 at 21:00 Enoxaparin Sodium (Lovenox 40mg Syringe) 40 mg QHS SQ Last administered on 07/10 21:04; Start 07/09/16 at 21:00 Acetaminophen (Tylenol) 600 mg PRN Q6HRS PRN PO MILD PAIN / TEMP; Start at 16:00 Alprazolam (Xanax) 0.25 mg PRN Q8HRS PRN PO ANXIETY / AGITATION; Start at 16:00 Vitamin D (Vitamin D3) 1,000 unit DAILY PO Last administered on 07/11/16 09:02 ; Start 07/10/16 at 09:00 Docusate Sodium (Colace) 100 mg BID PO Last administered on 07/11/16 09:02; Start 07/09/16 at 21:00 Escitalopram Oxalate (Lexapro) 10 mg DAILY PO Last administered on 07/11/16 09 :06; Start 07/10/16 at 09:00 Famotidine (Pepcid) 20 mg BID PO Last administered on 07/11/16 09:02; Start at 21:00 Sertraline HCl (Zoloft) 50 mg HS PO Last administered on 07/10/16 21:03; Start 07/09/16 at 21:00 Tamsulosin HCl (Flomax) 0.4 mg QHS PO Last administered on 07/10/16 21:04; Start 07/10/16 at 21:00 Donepezil HCl (Aricept) 10 mg BID PO Last administered on 07/11/16 09:02; Start 07/09/16 at 21:00 Non-Formulary Medication 100 mg BID PO ; Start 07/09/16 at 21:00; Stop 07/09/16 at 21:00; Status DC Lactobacillus Acidophilus (Bacid, Apple-Bid) 1 tab QHS PO Last administered on 21:03; Start 07/10/16 at 21:00 Non-Formulary Medication 3 mg QHS PO ; Start 07/09/16 at 21:00; Stop 07/09/16 at 21:00; Status DC Memantine (Namenda) 10 mg BID PO Last administered on 07/11/16 09:02; Start at 21:00 Potassium Chloride (Klor-Con) 10 meq [id number] PO Last administered on 09:02; Start 07/10/16 at 08:00 Triamcinolone Acetonide 1 alaina 1 alaina BID TP Last administered on 07/10/16 21:04 ; Start 07/09/16 at 21:00 Sodium Chloride (Iv Sodium Chloride 0.9% 1000ml Bag) 1,000 ml @ 1,000 mls/hr 1X ONCE IV Last administered on 07/10/16 09:53; Start 07/10/16 at 09:45; Stop 07/10/16 at 10:44; Status DC Metoprolol Tartrate (Lopressor) 25 mg BID PO Last administered on 07/11/16 09: 03; Start 07/10/16 at 21:00; Stop 07/11/16 at 10:41; Status DC Aspirin (Ecotrin) 81 mg [id number] PO Last administered on 07/11/16 09:01; Start 07/10/16 at 15:00 Digoxin (Lanoxin) 250 mcg 1X ONCE IV Last administered on 07/10/16 18:22; Start 07/10/16 at 17:30; Stop 07/10/16 at 17:33; Status DC Cyclobenzaprine HCl (Flexeril) 5 mg Q6HRS PO Last administered on 07/11/16 10: 43; Start 07/11/16 at 09:30; Stop 07/12/16 at 18:00 Ketorolac Tromethamine (Toradol) 30 mg 1X ONCE IV Last administered on 10:44; Start 07/11/16 at 09:30; Stop 07/11/16 at 09:31; Status DC Metoprolol Tartrate (Lopressor) 50 mg BID PO ; Start 07/11/16 at 21:00 Active Scripts Active Reported Zoloft (Sertraline Hcl) 50 Mg Tablet 50 Mg PO HS Xanax (Alprazolam) 0.25 Mg Tablet 0.25 Mg PO PRN Q8HRS PRN Vitamin D3 (Cholecalciferol (Vitamin D3)) 1,000 Unit Tablet 1,000 Unit PO DAILY Acetaminophen 325 Mg Tablet 600 Mg PO PRN Q6HRS PRN Triamcinolone Acetonide 80 Gm Oint...g. 80 Gm TP BID Tamsulosin Hcl 0.4 Mg Cap.er.24h 0.4 Mg PO DAILY Potassium Chloride 10 Meq Capsule.er 10 Meq PO DAILY Namenda Xr (Memantine Hcl) 28 Mg Cap.spr.24 28 Mg PO DAILY Melatonin 3 Mg Tablet 3 Mg PO QHS Escitalopram Oxalate 10 Mg Tablet 10 Mg PO DAILY Famotidine 20 Mg Tablet 20 Mg PO BID Doxycycline Monohydrate 100 Mg Capsule 100 Mg PO BID Donepezil Hcl 23 Mg Tablet 23 Mg PO DAILY Colace (Docusate Sodium) 100 Mg Capsule 100 Mg PO BID Acidophilus Lactobacillus (Lactobacillus Acidophilus) 1 Each Capsule 1 Each PO HS Metoprolol Tartrate 25 Mg Tablet 1 Tab PO DAILY Amlodipine Besylate 5 Mg Tablet 5 Mg PO DAILY Vitals/I & O Vital Sign - Last 24 Hours 07/10/16 07/10/16 07/10/16 07/10/16 15:00 18:22 19:00 20:00 Temp 99.1 99.5 99.1 99.5 Pulse 112 136 136 Resp B/P 123/69 123/69 137/83 Pulse Ox 90 91 O2 Delivery Room Air Room Air Room Air 07/10/16 07/10/16 07/11/16 07/11/16 21:04 23:00 03:14 04:59 Temp 101.0 99.3 99.5 101.0 99.3 99.5 Pulse 136 112 117 Resp 16 B/P 137/83 130/74 128/61 Pulse Ox 93 93 O2 Delivery Room Air Room Air 07/11/16 07/11/16 07/11/16 07/11/16 07:10 07:41 09:03 09:03 Temp 99.0 99.0 Pulse 111 111 Resp 20 B/P 144/73 144/73 Pulse Ox 93 O2 Delivery Room Air Room Air Room Air 07/11/16 07/11/16 07/11/16 09:04 10:42 11:04 Temp 99.9 99.9 Pulse 111 128 Resp 20 B/P 144/73 118/64 Pulse Ox 93 O2 Delivery Room Air Room Air Intake and Output 07/10/16 07/10/16 07/11/16 15:00 23:00 07:00 Intake Total 100 ml Output Total 150 ml Balance -50 ml NAVNEET CRAWFORD MD Jul 11, 2016 14:06
[2016-07-11] MEDS ORDERED: ACETAMINOPHEN 325 MG TABLET. PO PRN (14:45)
[2016-07-11 15:00] VITALS: BP 91/48
[2016-07-11] MEDS: PIPERACILLIN/TAZOBACTAM 3.375 GM in IV NORMAL SALINE 50ML 50 ML IV SCH (15:46)
[2016-07-11] MEDS: AA 2.75%/CALCIUM/LYTES/D5W 2,000 ML IV SCH (15:46)
[2016-07-11] MEDS: METOPROLOL TARTRATE 5 MG/5 ML VIAL. IVP SCH (18:26)
[2016-07-11 19:10] VITALS: BP 113/60
[2016-07-11] MEDS: LACTOBACILLUS ACIDOPH & BULGAR 1 TABLET. PO SCH (20:02)
[2016-07-11] MEDS: TAMSULOSIN 0.4 MG CAP.ER.24H. PO SCH (20:02)
[2016-07-11] MEDS: SERTRALINE 50 MG TABLET. PO SCH (20:02)
[2016-07-11] MEDS: FAMOTIDINE 20 MG/2 ML VIAL IVP SCH (20:36)
[2016-07-11] MEDS: ENOXAPARIN 40 MG/0.4 ML SYRINGE. SQ SCH (20:37)
[2016-07-11] MEDS ORDERED: METOPROLOL TART IMMED RELEASE 50 MG TABLET PO SCH (21:00)
[2016-07-11 23:10] VITALS: BP 127/61
--- NOTE | 2016-07-11 23:55 | CONS ---
DATE OF CONSULTATION: 07/11/2016 ATTENDING PHYSICIAN: Dr. Bolanos. CONSULTING PHYSICIAN: Nicolette Lemos MD REASON FOR CONSULTATION: The patient is seen in pulmonary consultation at the request of Dr. Bolanos for abnormal CT of the chest revealing a large right-sided effusion. HISTORY OF PRESENT ILLNESS: The patient is an 86-year-old that came in from sn[facility] with increasing mental status change. His workup included a chest x-ray, which revealed possible effusion. This was confirmed with CT chest. I was asked to see him in consultation. I have reviewed the CT. There is a large right-sided effusion, small amount of left-sided effusion. The [id number] was at the bedside at the time of my evaluation. She states over the last several days, the patient has had some increasing confusion. There has been no history given of fever or chills. He does have a history of paroxysmal AFib. There is no history of prior heart failure. PAST MEDICAL HISTORY: Remarkable for dementia, tachycardia, possible CHF. PAST SURGICAL HISTORY: No recent major surgeries. ALLERGIES: No known drug allergies. REVIEW OF SYSTEMS: Unobtainable secondary to the patient's condition. MEDICATIONS: List was reviewed. Please see the MRAD. PHYSICAL EXAMINATION: VITAL SIGNS: The patient was in no respiratory distress, off of oxygen supplementation, saturation was greater than 92%. HEENT: Eyes, the sclerae were nonicteric. NECK: Jugular venous distention was not elevated. No lymphadenopathy. CHEST: Full expansion. LUNGS: Diminished breath sounds in the bases. CARDIOVASCULAR: Regular rate and rhythm with S1, S2, no S3. ABDOMEN: Soft, nontender, nondistended. EXTREMITIES: No clubbing, cyanosis or edema. NEUROLOGIC: The patient was awake, but followed no commands. LABORATORY DATA: Reviewed. White count was elevated. Hemoglobin and hematocrit were noted. Electrolytes were noted. Influenza screen was negative. Nasal swab for MRSA was negative. UA was noted. The CT as indicated above. IMPRESSION: 1. Abnormal CT of the chest revealing large right-sided effusion. 2. Metabolic/toxic encephalopathy. 3. Possible pneumonia with parapneumonic effusion. 4. Alzheimer's disease. 5. Atrial fibrillation with rapid ventricular response. 6. Dysphagia. PLAN: 1. I concur with current medical management. 2. I have discussed the possibility of requiring thoracentesis with the [id number], who was at the bedside, and she will discuss this with her . They will notify me if they wish to proceed with thoracentesis. 3. Continue current support. I do appreciate the privilege in sharing in this patient's care. NICOLETTE LEMOS MD DR: INDRA/daniel JOB#: [id number] / [id number]
[2016-07-12] MEDS: PIPERACILLIN/TAZOBACTAM 3.375 GM in IV NORMAL SALINE 50ML 50 ML IV SCH ×6 (00:22→17:42)
[2016-07-12 03:10] VITALS: BP 113/50
[2016-07-12] MEDS: CYCLOBENZAPRINE 10 MG TABLET. PO SCH ×4 (05:28→17:35)
[2016-07-12] MEDS: METOPROLOL TARTRATE 5 MG/5 ML VIAL. IVP SCH ×4 (06:15→17:42)
[2016-07-12 07:00] VITALS: BP 138/68
[2016-07-12] MEDS: POTASSIUM CHLORIDE 10 MEQ TABLET.ER. PO SCH (08:00)
[2016-07-12] MEDS: ASPIRIN ENTERIC COATED 81 MG TABLET.DR. PO SCH (08:00)
--- NOTE | 2016-07-12 08:12 | PDOC ---
PULMONARY PROGRESS NOTES Subjective non verbal Vitals Vital Signs Date Time Temp Pulse Resp B/P Pulse Ox O2 Delivery O2 Flow Rate FiO2 07/12/16 06:15 131 137/96 07/12/16 03:10 98.2 16 94 Room Air 98.2 Lungs: Other (right side decreased bs) Cardiovascular: S1, S2 Abdomen: Soft Neuro Exam: Alert Extremities: No Edema Skin: Warm Labs Laboratory Tests Test 07/11/16 03:54 07/11/16 09:30 White Blood Count 11.2x10^3/uL (4.0-11.0) Red Blood Count 3.61x10^6/uL (4.30-5.70) Hemoglobin 11.3g/dL (13.0-17.5) Hematocrit 34.9% (39.0-53.0) Mean Corpuscular Volume 97fL (79-100) Mean Corpuscular Hemoglobin 31pg (25-35) Mean Corpuscular Hemoglobin Concent 32g/dL (31-37) Red Cell Distribution Width 15.7% (11.5-14.5) Platelet Count 213x10^3/uL (140-400) Neutrophils (%) (Auto) 69% (31-73) Lymphocytes (%) (Auto) 14% (24-48) Monocytes (%) (Auto) 16% (0-9) Eosinophils (%) (Auto) 1% (0-3) Basophils (%) (Auto) 1% (0-3) Neutrophils # (Auto) 7.7x10^3uL (1.8-7.7) Lymphocytes # (Auto) 1.6x10^3/uL (1.0-4.8) Monocytes # (Auto) 1.8x10^3/uL (0.0-1.1) Eosinophils # (Auto) 0.1x10^3/uL (0.0-0.7) Basophils # (Auto) 0.1x10^3/uL (0.0-0.2) Sodium Level 142mmol/L (136-145) Potassium Level 3.7mmol/L (3.5-5.1) Chloride Level 105mmol/L (98-107) Carbon Dioxide Level 26mmol/L (21-32) Anion Gap 11 (6-14) Blood Urea Nitrogen 15mg/dL (8-26) Creatinine 1.2mg/dL (0.7-1.3) Estimated GFR (Cockcroft-Gault) 57.7 Glucose Level 97mg/dL (70-99) Calcium Level 9.1mg/dL (8.5-10.1) Erythrocyte Sedimentation Rate 104 (0-15) Laboratory Tests Test 07/11/16 09:30 Erythrocyte Sedimentation Rate 104 (0-15) Medications Active Scripts Medications Dose Route/Sig Days Date Category Zoloft (Sertraline Hcl) 50 Mg Tablet 50 Mg PO HS 07/09/16 Reported Xanax (Alprazolam) 0.25 Mg Tablet 0.25 Mg PO PRN Q8HRS PRN 07/09/16 Reported Vitamin D3 (Cholecalciferol (Vitamin D3)) 1,000 Unit Tablet 1,000 Unit PO DAILY 07/09/16 Reported Acetaminophen 325 Mg Tablet 600 Mg PO PRN Q6HRS PRN 07/09/16 Reported Triamcinolone Acetonide 80 Gm Oint...g. 80 Gm TP BID 07/09/16 Reported Tamsulosin Hcl 0.4 Mg Cap.er.24h 0.4 Mg PO DAILY 07/09/16 Reported Potassium Chloride 10 Meq Capsule.er 10 Meq PO DAILY 07/09/16 Reported Namenda Xr (Memantine Hcl) 28 Mg Cap.spr.24 28 Mg PO DAILY 07/09/16 Reported Melatonin 3 Mg Tablet 3 Mg PO QHS 07/09/16 Reported Escitalopram Oxalate 10 Mg Tablet 10 Mg PO DAILY 07/09/16 Reported Famotidine 20 Mg Tablet 20 Mg PO BID 07/09/16 Reported Doxycycline Monohydrate 100 Mg Capsule 100 Mg PO BID 07/09/16 Reported Donepezil Hcl 23 Mg Tablet 23 Mg PO DAILY 07/09/16 Reported Colace (Docusate Sodium) 100 Mg Capsule 100 Mg PO BID 07/09/16 Reported Acidophilus Lactobacillus (Lactobacillus Acidophilus) 1 Each Capsule 1 Each PO HS 07/09/16 Reported Metoprolol Tartrate 25 Mg Tablet 1 Tab PO DAILY 07/09/16 Reported Amlodipine Besylate 5 Mg Tablet 5 Mg PO DAILY 07/09/16 Reported Impression . 1. Abnormal CT of the chest revealing large right-sided effusion. 2. Metabolic/toxic encephalopathy. 3. Possible pneumonia with parapneumonic effusion. 4. Alzheimer's disease. 5. Atrial fibrillation with rapid ventricular response. 6. Dysphagia. Plan . d/w daughter in Law she informed me that her wishes to proceed with palliative care possible hospice 1. I concur with current medical management. 2. Family does not want thoracentesis I concur not to be aggressive 3. Continue current support. NICOLETTE COELHO MD Jul 12, 2016 08:12
[2016-07-12] MEDS: DONEPEZIL HCL 10 MG TABLET. PO SCH ×2 (09:00→21:03)
[2016-07-12] MEDS: ESCITALOPRAM 10 MG TABLET. PO SCH (09:00)
[2016-07-12] MEDS: DOCUSATE SODIUM 100 MG CAPSULE PO SCH ×2 (09:00→21:03)
[2016-07-12] MEDS: MEMANTINE 10 MG TABLET. PO SCH ×2 (09:00→21:04)
[2016-07-12] MEDS: CHOLECALCIFEROL (VITAMIN D3) 1,000 UNIT TABLET PO SCH (09:00)
[2016-07-12] MEDS: AMLODIPINE BESYLATE 5 MG TABLET PO SCH (09:00)
[2016-07-12 09:18] LABS: BASO # 0.1 x10^3/uL (0.0-0.2); BASO % 1 % (0-3); EOS % 5 % (0-3); HEMATOCRIT 34.7 % (39.0-53.0); HEMOGLOBIN 11.4 g/dL (13.0-17.5); LYMPH # 1.2 x10^3/uL (1.0-4.8); LYMPH % 13 % (24-48); MEAN CORPUSCULAR HEMOGLOBIN 31 pg (25-35); MEAN CORPUSCULAR HGB CONC 33 g/dL (31-37); MEAN CORPUSCULAR VOLUME 94 fL (79-100); MONO % 12 % (0-9); NEUT % 70 % (31-73); PLATELET COUNT 246 x10^3/uL (140-400); RED BLOOD COUNT 3.68 x10^6/uL (4.30-5.70); RED CELL DISTRIBUTION WIDTH 15.5 % (11.5-14.5); WHITE BLOOD COUNT 9.7 x10^3/uL (4.0-11.0)
[2016-07-12 09:28] LABS: CALCIUM 9.1 mg/dL (8.5-10.1); CREATININE 1.1 mg/dL (0.7-1.3); GFR 63.8
[2016-07-12 11:00] VITALS: BP 117/67
--- NOTE | 2016-07-12 11:09 | PDOC ---
PROGRESS NOTES Assessment Problems Medical Problems: (1) Pneumonia Status: Acute (2) Tachycardia Status: Acute Musculoskeletal neck pain without radiculopathy or myelopathy. Cervical degenerative changes Polyarthralgias with sedimentation rate 105. He feels better after the Toradol shot. Consider polymyalgia rheumatica He also has bilateral pleural effusions, worse on the right, that if infectious could cause the elevated sed rate Alzheimer's disease Plan I consulted rheumatology, but I'm not sure he is a good candidate for steroids. Physical therapy Discussed with patient's daughter who is considering a palliative-care approach. Subjective Pain is better Objective Vital Signs Date Time Temp Pulse Resp B/P Pulse Ox O2 Delivery O2 Flow Rate FiO2 07/12/16 07:00 97.8 69 20 138/68 93 Room Air 97.8 Intake and Output 07/12/16 07:00 Intake Total 1296.16 ml Output Total 400 ml Balance 896.16 ml Intake Oral 100 ml IV Total 1196.16 ml Stool Total 400 ml # Voids 6 PHYSICAL EXAM Alert. Follows commands, not very verbal, oriented only to person Neck range of motion better PERRL. EOMI. CN: no focal findings. Muscle tone: normal. Muscle strength: 4/5, less splinting due to pain DTR: 1+ Plantar reflex: flexor Gait: not examined in bed. Sensory exam: no abnormal findings. No cerebellar signs elicited. Review of Relevant I have reviewed the following items donald (where applicable) has been applied. Labs Laboratory Tests Test 07/11/16 03:54 07/11/16 09:30 07/12/16 09:04 White Blood Count 11.2x10^3/uL (4.0-11.0) 9.7x10^3/uL (4.0-11.0) Red Blood Count 3.61x10^6/uL (4.30-5.70) 3.68x10^6/uL (4.30-5.70) Hemoglobin 11.3g/dL (13.0-17.5) 11.4g/dL (13.0-17.5) Hematocrit 34.9% (39.0-53.0) 34.7% (39.0-53.0) Mean Corpuscular Volume 97fL (79-100) 94fL (79-100) Mean Corpuscular Hemoglobin 31pg (25-35) 31pg (25-35) Mean Corpuscular Hemoglobin Concent 32g/dL (31-37) 33g/dL (31-37) Red Cell Distribution Width 15.7% (11.5-14.5) 15.5% (11.5-14.5) Platelet Count 213x10^3/uL (140-400) 246x10^3/uL (140-400) Neutrophils (%) (Auto) 69% (31-73) 70% (31-73) Lymphocytes (%) (Auto) 14% (24-48) 13% (24-48) Monocytes (%) (Auto) 16% (0-9) 12% (0-9) Eosinophils (%) (Auto) 1% (0-3) 5% (0-3) Basophils (%) (Auto) 1% (0-3) 1% (0-3) Neutrophils # (Auto) 7.7x10^3uL (1.8-7.7) 6.8x10^3uL (1.8-7.7) Lymphocytes # (Auto) 1.6x10^3/uL (1.0-4.8) 1.2x10^3/uL (1.0-4.8) Monocytes # (Auto) 1.8x10^3/uL (0.0-1.1) 1.1x10^3/uL (0.0-1.1) Eosinophils # (Auto) 0.1x10^3/uL (0.0-0.7) 0.4x10^3/uL (0.0-0.7) Basophils # (Auto) 0.1x10^3/uL (0.0-0.2) 0.1x10^3/uL (0.0-0.2) Sodium Level 142mmol/L (136-145) 142mmol/L (136-145) Potassium Level 3.7mmol/L (3.5-5.1) 4.0mmol/L (3.5-5.1) Chloride Level 105mmol/L (98-107) 105mmol/L (98-107) Carbon Dioxide Level 26mmol/L (21-32) 28mmol/L (21-32) Anion Gap 11 (6-14) 9 (6-14) Blood Urea Nitrogen 15mg/dL (8-26) 18mg/dL (8-26) Creatinine 1.2mg/dL (0.7-1.3) 1.1mg/dL (0.7-1.3) Estimated GFR (Cockcroft-Gault) 57.7 63.8 Glucose Level 97mg/dL (70-99) 102mg/dL (70-99) Calcium Level 9.1mg/dL (8.5-10.1) 9.1mg/dL (8.5-10.1) Erythrocyte Sedimentation Rate 104 (0-15) Laboratory Tests Test 07/12/16 09:04 White Blood Count 9.7x10^3/uL (4.0-11.0) Red Blood Count 3.68x10^6/uL (4.30-5.70) Hemoglobin 11.4g/dL (13.0-17.5) Hematocrit 34.7% (39.0-53.0) Mean Corpuscular Volume 94fL (79-100) Mean Corpuscular Hemoglobin 31pg (25-35) Mean Corpuscular Hemoglobin Concent 33g/dL (31-37) Red Cell Distribution Width 15.5% (11.5-14.5) Platelet Count 246x10^3/uL (140-400) Neutrophils (%) (Auto) 70% (31-73) Lymphocytes (%) (Auto) 13% (24-48) Monocytes (%) (Auto) 12% (0-9) Eosinophils (%) (Auto) 5% (0-3) Basophils (%) (Auto) 1% (0-3) Neutrophils # (Auto) 6.8x10^3uL (1.8-7.7) Lymphocytes # (Auto) 1.2x10^3/uL (1.0-4.8) Monocytes # (Auto) 1.1x10^3/uL (0.0-1.1) Eosinophils # (Auto) 0.4x10^3/uL (0.0-0.7) Basophils # (Auto) 0.1x10^3/uL (0.0-0.2) Sodium Level 142mmol/L (136-145) Potassium Level 4.0mmol/L (3.5-5.1) Chloride Level 105mmol/L (98-107) Carbon Dioxide Level 28mmol/L (21-32) Anion Gap 9 (6-14) Blood Urea Nitrogen 18mg/dL (8-26) Creatinine 1.1mg/dL (0.7-1.3) Estimated GFR (Cockcroft-Gault) 63.8 Glucose Level 102mg/dL (70-99) Calcium Level 9.1mg/dL (8.5-10.1) Microbiology 07/08/16 Blood Culture - Preliminary, Resulted NO GROWTH AFTER 3 DAYS 07/08/16 Urine Culture - Final, Complete 07/08/16 Urine Culture Result 1 (JULIET) - Final, Complete Medications Current Medications Vancomycin HCl (Vanco Per Pharmacy) 1 each PRN DAILY PRN MC SEE COMMENTS Last administered on 07/09/16 14:10; Start 07/08/16 at 20:30; Stop 07/09/16 at 17:10 ; Status DC Piperacillin Sod/ Tazobactam Sod 1 each 1 each PRN DAILY PRN MC SEE COMMENTS; Start 07/08/16 at 20:30; Stop 07/09/16 at 16:57; Status DC Sodium Chloride 500 ml @ 500 mls/hr 1X ONCE IV Last administered on 21:22; Start 07/08/16 at 20:45; Stop 07/08/16 at 21:44; Status DC Piperacillin Sod/ Tazobactam Sod 3.375 gm/Sodium Chloride 50 ml @ 100 mls/hr 1X ONCE IV Last administered on 07/08/16 21:00; Start 07/08/16 at 21:00; Stop 07/09/16 at 15:38; Status DC Vancomycin HCl/ Sodium Chloride (Iv Sodium Chloride 0.9% 500ml Bag) 500 ml @ 250 mls/hr 1X ONCE IV Last administered on 07/08/16 21:00; Start 07/08/16 at 21:00; Stop 07/09/16 at 15:38; Status DC Ondansetron HCl (Zofran) 4 mg PRN Q8HRS PRN IV NAUSEA/VOMITING; Start 07/08/16 at 23:00; Stop 07/08/16 at 23:15; Status DC Morphine Sulfate 2 mg 2 mg PRN Q2HR PRN IV SEVERE PAIN; Start 07/08/16 at 23:00 ; Stop 07/09/16 at 22:59; Status DC Sodium Chloride (Iv Sodium Chloride 0.9% 1000ml Bag) 1,000 ml @ 50 mls/hr Q20H IV Last administered on 07/09/16 03:09; Start 07/08/16 at 22:59; Stop at 22:58; Status DC Acetaminophen 650 mg 650 mg PRN Q4HRS PRN PO FEVER; Start 07/08/16 at 23:00; Stop 07/09/16 at 11:33; Status DC Piperacillin Sod/ Tazobactam Sod 3.375 gm/Sodium Chloride 50 ml @ 100 mls/hr Q6HRS IV Last administered on 07/09/16 12:34; Start 07/09/16 at 06:00; Stop at 15:38; Status DC Vancomycin HCl/ Sodium Chloride (Iv Sodium Chloride 0.9% 250ml) 250 ml @ 167 mls/hr Q24H IV ; Start 07/09/16 at 21:00; Stop 07/09/16 at 21:00; Status DC Vancomycin HCl 1 each 1X ONCE MC ; Start 07/10/16 at 20:30; Stop 07/10/16 at 20 :30; Status DC Acetaminophen (Tylenol) 325 mg PRN Q6HRS PRN PO MILD PAIN / TEMP Last administered on 07/11/16 10:44; Start 07/09/16 at 09:30 Acetaminophen/ Hydrocodone Bitart (Lortab 5/325) 1 tab PRN Q6HRS PRN PO MODERATE TO SEVERE PAIN; Start 07/09/16 at 09:30; Stop 07/09/16 at 14:08; Status DC Hydralazine HCl (Apresoline) 10 mg PRN Q4HRS PRN IVP ELEVATED BP, SEE COMMENTS ; Start 07/09/16 at 09:30; Stop 07/09/16 at 14:08; Status DC Ondansetron HCl (Zofran) 4 mg PRN Q8HRS PRN IV NAUSEA/VOMITING; Start 07/09/16 at 09:30 Albuterol Sulfate (Ventolin Neb Soln) 2.5 mg PRN Q4HRS PRN NEB SHORTNESS OF BREATH; Start 07/09/16 at 09:30 Cyclobenzaprine HCl (Flexeril) 5 mg PRN Q6HRS PRN PO MUSCLE SPASMS Last administered on 07/10/16 13:24; Start 07/09/16 at 11:30; Stop 07/11/16 at 09:30 ; Status DC Amlodipine Besylate (Norvasc) 5 mg DAILY PO ; Start 07/09/16 at 12:00; Status Cancel Metoprolol Tartrate (Lopressor) 25 mg DAILY PO Last administered on 07/10/16 09:53; Start 07/09/16 at 17:00; Stop 07/10/16 at 14:08; Status DC Acetaminophen (Tylenol) 325 mg PRN Q6HRS PRN PO MILD PAIN / TEMP; Start at 11:30; Stop 07/09/16 at 11:35; Status DC Acetaminophen/ Hydrocodone Bitart (Lortab 5/325) 1 tab PRN Q6HRS PRN PO MODERATE TO SEVERE PAIN Last administered on 07/11/16 09:03; Start 07/09/16 at 11:30 Hydralazine HCl (Apresoline) 10 mg PRN Q4HRS PRN IVP ELEVATED BP, SEE COMMENTS ; Start 07/09/16 at 11:30 Ondansetron HCl (Zofran) 4 mg PRN Q8HRS PRN IV NAUSEA/VOMITING; Start 07/09/16 at 11:30; Stop 07/09/16 at 11:35; Status DC Albuterol Sulfate (Ventolin Neb Soln) 2.5 mg PRN Q4HRS PRN NEB SHORTNESS OF BREATH; Start 07/09/16 at 11:30; Stop 07/09/16 at 11:36; Status DC Amlodipine Besylate (Norvasc) 5 mg DAILY PO Last administered on 07/11/16 09: 04; Start 07/09/16 at 16:00 Amoxicillin/ Clavulanate Potassium (Augmentin 875/ 125mg) 1 tab BID PO Last administered on 07/11/16 09:02; Start 07/09/16 at 21:00; Stop 07/11/16 at 14:02 ; Status DC Enoxaparin Sodium (Lovenox 40mg Syringe) 40 mg QHS SQ Last administered on 07/11 20:37; Start 07/09/16 at 21:00 Acetaminophen (Tylenol) 600 mg PRN Q6HRS PRN PO MILD PAIN / TEMP; Start at 16:00; Stop 07/11/16 at 14:38; Status DC Alprazolam (Xanax) 0.25 mg PRN Q8HRS PRN PO ANXIETY / AGITATION; Start at 16:00 Vitamin D (Vitamin D3) 1,000 unit DAILY PO Last administered on 07/11/16 09:02 ; Start 07/10/16 at 09:00 Docusate Sodium (Colace) 100 mg BID PO Last administered on 07/11/16 09:02; Start 07/09/16 at 21:00 Escitalopram Oxalate (Lexapro) 10 mg DAILY PO Last administered on 07/11/16 09 :06; Start 07/10/16 at 09:00 Famotidine (Pepcid) 20 mg BID PO Last administered on 07/11/16 09:02; Start at 21:00; Stop 07/11/16 at 14:02; Status DC Sertraline HCl (Zoloft) 50 mg HS PO Last administered on 07/10/16 21:03; Start 07/09/16 at 21:00 Tamsulosin HCl (Flomax) 0.4 mg QHS PO Last administered on 07/10/16 21:04; Start 07/10/16 at 21:00 Donepezil HCl (Aricept) 10 mg BID PO Last administered on 07/11/16 09:02; Start 07/09/16 at 21:00 Non-Formulary Medication 100 mg BID PO ; Start 07/09/16 at 21:00; Stop 07/09/16 at 21:00; Status DC Lactobacillus Acidophilus (Bacid, Apple-Bid) 1 tab QHS PO Last administered on 21:03; Start 07/10/16 at 21:00 Non-Formulary Medication 3 mg QHS PO ; Start 07/09/16 at 21:00; Stop 07/09/16 at 21:00; Status DC Memantine (Namenda) 10 mg BID PO Last administered on 07/11/16 09:02; Start at 21:00 Potassium Chloride (Klor-Con) 10 meq [id number] PO Last administered on 09:02; Start 07/10/16 at 08:00 Triamcinolone Acetonide 1 alaina 1 alaina BID TP Last administered on 07/11/16 20:37 ; Start 07/09/16 at 21:00 Sodium Chloride (Iv Sodium Chloride 0.9% 1000ml Bag) 1,000 ml @ 1,000 mls/hr 1X ONCE IV Last administered on 07/10/16 09:53; Start 07/10/16 at 09:45; Stop 07/10/16 at 10:44; Status DC Metoprolol Tartrate (Lopressor) 25 mg BID PO Last administered on 07/11/16 09: 03; Start 07/10/16 at 21:00; Stop 07/11/16 at 10:41; Status DC Aspirin (Ecotrin) 81 mg [id number] PO Last administered on 07/11/16 09:01; Start 07/10/16 at 15:00 Digoxin (Lanoxin) 250 mcg 1X ONCE IV Last administered on 07/10/16 18:22; Start 07/10/16 at 17:30; Stop 07/10/16 at 17:33; Status DC Cyclobenzaprine HCl (Flexeril) 5 mg Q6HRS PO Last administered on 07/11/16 10: 43; Start 07/11/16 at 09:30; Stop 07/12/16 at 18:00 Ketorolac Tromethamine (Toradol) 30 mg 1X ONCE IV Last administered on 10:44; Start 07/11/16 at 09:30; Stop 07/11/16 at 09:31; Status DC Metoprolol Tartrate 50 mg 50 mg BID PO ; Start 07/11/16 at 21:00; Stop 07/11/16 at 21:00; Status DC Piperacillin Sod/ Tazobactam Sod/ Sodium Chloride (Zosyn/Iv Sodium Chloride 0.9 % 50ml) 50 ml @ 100 mls/hr Q6HRS IV Last administered on 07/12/16 06:11; Start 07/11/16 at 15:00 Piperacillin Sod/ Tazobactam Sod (Zosyn Per Pharmacy) 1 each PRN DAILY PRN MC SEE COMMENTS; Start 07/11/16 at 14:00 Metoprolol Tartrate (Lopressor) 5 mg Q6HRS IVP Last administered on 07/12/16 06:15; Start 07/11/16 at 18:00 Famotidine 20 mg 20 mg QHS IVP Last administered on 07/11/16 20:36; Start at 21:00 Amino Acids/ Electrolytes (Clinimix E 2.75%-5% Solution) 2,000 ml @ 80 mls/hr Q24H IV Last administered on 07/11/16 15:46; Start 07/11/16 at 14:30 Acetaminophen (Tylenol) 650 mg PRN Q6HRS PRN PO MILD PAIN / TEMP; Start at 14:45 Active Scripts Active Reported Zoloft (Sertraline Hcl) 50 Mg Tablet 50 Mg PO HS Xanax (Alprazolam) 0.25 Mg Tablet 0.25 Mg PO PRN Q8HRS PRN Vitamin D3 (Cholecalciferol (Vitamin D3)) 1,000 Unit Tablet 1,000 Unit PO DAILY Acetaminophen 325 Mg Tablet 600 Mg PO PRN Q6HRS PRN Triamcinolone Acetonide 80 Gm Oint...g. 80 Gm TP BID Tamsulosin Hcl 0.4 Mg Cap.er.24h 0.4 Mg PO DAILY Potassium Chloride 10 Meq Capsule.er 10 Meq PO DAILY Namenda Xr (Memantine Hcl) 28 Mg Cap.spr.24 28 Mg PO DAILY Melatonin 3 Mg Tablet 3 Mg PO QHS Escitalopram Oxalate 10 Mg Tablet 10 Mg PO DAILY Famotidine 20 Mg Tablet 20 Mg PO BID Doxycycline Monohydrate 100 Mg Capsule 100 Mg PO BID Donepezil Hcl 23 Mg Tablet 23 Mg PO DAILY Colace (Docusate Sodium) 100 Mg Capsule 100 Mg PO BID Acidophilus Lactobacillus (Lactobacillus Acidophilus) 1 Each Capsule 1 Each PO HS Metoprolol Tartrate 25 Mg Tablet 1 Tab PO DAILY Amlodipine Besylate 5 Mg Tablet 5 Mg PO DAILY Vitals/I & O Vital Sign - Last 24 Hours 07/11/16 07/11/16 07/11/16 07/11/16 15:00 18:26 19:10 20:00 Temp 97.9 97.4 97.9 97.4 Pulse 65 65 65 Resp 20 12 B/P 91/48 151/79 113/60 Pulse Ox 92 96 O2 Delivery Room Air Room Air Room Air 07/11/16 07/12/16 07/12/16 07/12/16 23:10 03:10 06:15 07:00 Temp 97.7 98.2 97.8 97.7 98.2 97.8 Pulse 44 112 131 69 Resp 16 16 20 B/P 127/61 113/50 137/96 138/68 Pulse Ox 96 94 93 O2 Delivery Room Air Room Air Room Air Intake and Output 07/11/16 07/11/16 07/12/16 15:00 23:00 07:00 Intake Total 366.16 ml 930 ml Output Total 400 ml Balance 366.16 ml [address] cervical: 1. Moderate multilevel degenerative change as described above. 2. No acute bony abnormality is detected. 3. Moderate-sized right pleural effusion. RONY DURÁN MD Jul 12, 2016 11:09
--- NOTE | 2016-07-12 11:11 | PDOC ---
CARDIO Progress Notes Date and Time Date of Service 07/12/2016 Time of Evaluation 1104 Subjective Subjective: Other (awake and verbally interactive today) Vitals Vitals Vital Signs Date Time Temp Pulse Resp B/P Pulse Ox O2 Delivery O2 Flow Rate FiO2 07/12/16 07:00 97.8 69 20 138/68 93 Room Air 97.8 Weight Weight [ ] Input and Output Intake and Output Intake and Output 07/12/16 07:00 Intake Total 1296.16 ml Output Total 400 ml Balance 896.16 ml Intake Oral 100 ml IV Total 1196.16 ml Stool Total 400 ml # Voids 6 Laboratory Labs Laboratory Tests Test 07/12/16 09:04 White Blood Count 9.7x10^3/uL (4.0-11.0) Red Blood Count 3.68x10^6/uL (4.30-5.70) Hemoglobin 11.4g/dL (13.0-17.5) Hematocrit 34.7% (39.0-53.0) Mean Corpuscular Volume 94fL (79-100) Mean Corpuscular Hemoglobin 31pg (25-35) Mean Corpuscular Hemoglobin Concent 33g/dL (31-37) Red Cell Distribution Width 15.5% (11.5-14.5) Platelet Count 246x10^3/uL (140-400) Neutrophils (%) (Auto) 70% (31-73) Lymphocytes (%) (Auto) 13% (24-48) Monocytes (%) (Auto) 12% (0-9) Eosinophils (%) (Auto) 5% (0-3) Basophils (%) (Auto) 1% (0-3) Neutrophils # (Auto) 6.8x10^3uL (1.8-7.7) Lymphocytes # (Auto) 1.2x10^3/uL (1.0-4.8) Monocytes # (Auto) 1.1x10^3/uL (0.0-1.1) Eosinophils # (Auto) 0.4x10^3/uL (0.0-0.7) Basophils # (Auto) 0.1x10^3/uL (0.0-0.2) Sodium Level 142mmol/L (136-145) Potassium Level 4.0mmol/L (3.5-5.1) Chloride Level 105mmol/L (98-107) Carbon Dioxide Level 28mmol/L (21-32) Anion Gap 9 (6-14) Blood Urea Nitrogen 18mg/dL (8-26) Creatinine 1.1mg/dL (0.7-1.3) Estimated GFR (Cockcroft-Gault) 63.8 Glucose Level 102mg/dL (70-99) Calcium Level 9.1mg/dL (8.5-10.1) Microbiology Micro Microbiology 07/08/16 Blood Culture - Preliminary, Resulted NO GROWTH AFTER 3 DAYS 07/08/16 Urine Culture - Final, Complete 07/08/16 Urine Culture Result 1 (JULIET) - Final, Complete Physical Exam HEENT: Neck Supple W Full Motion Chest: Symmetric LUNGS: Other (decreased in bases) Heart: irregularly irregular, other (tele: atrial fib with intermittent RVR) Extremities: No Edema Neurology: other (sleeping and did not arouse) Assessment Assessment 1. atrial fib with RVR rates consistently labile in the last 24 hours was made NPO yesterday for possible aspiration and converted to IV beta- blockers [id number] = 3 corresponding to 3.2% risk of stroke per year; OAC would generally be recommend - ? candidate with dementia - ? mobility continue aspirin and lovenox for now 2. dehydration/pneumonia no fever in last 24 hours per primary service SUGEY SHANE APRN Jul 12, 2016 11:11
[2016-07-12] MEDS: TRIAMCINOLONE ACETONIDE 0.1% TOPICAL CREAM 15GM TUBE. TP SCH ×2 (11:51→21:00)
--- NOTE | 2016-07-12 12:41 | PDOC ---
PROGRESS NOTES Chief Complaint Chief Complaint a/p 1. Severe dehydration. 2. Decreased oral intake, failure to thrive. 3. Hypertension. 4. Atrial fibrillation with RVR 5. Neck pain possible due to spasm 6. Dementia severe 7. dysphagia, 2/2 dementia likely 8. neck DJD 9. right pleural effusion with possible asp PNA Plan Flexeril iv hydration add iv metoprolol since npo fu with neuro, cad. ct chest , get pulm consult, may need thoracentesis, but family refused npo PT/OT dc Augmentin, add zosyn for now dvt, gi ppx failed swallow 07/11 cont current meds, hope can clinically improve to his baseline when he was albe to walk a little bit, otherwise may consider hospice. discuss with daughter in law at bedside History of Present Illness History of Present Illness afebrile night of 07/11 very weak and confused, slightly better today, able to talk a little bit barely able to move left side on 07/11, but better on 07/12, can squeeze my hands bl failed swallow 07/11 still tachycardia with afib at 100s Vitals Vitals Vital Signs Date Time Temp Pulse Resp B/P Pulse Ox O2 Delivery O2 Flow Rate FiO2 07/12/16 11:50 110 117/67 07/12/16 11:00 97.9 16 93 Room Air 97.9 Physical Exam Physical Exam aaox1 to person only General: Alert Heart: Normal S1, Normal S2, Other (irregular) Lungs: Other (right side decreased bs) Abdomen: Normal bowel sounds, Soft Extremities: No clubbing, No cyanosis Labs LABS Laboratory Tests Test 07/12/16 09:04 White Blood Count 9.7x10^3/uL (4.0-11.0) Red Blood Count 3.68x10^6/uL (4.30-5.70) Hemoglobin 11.4g/dL (13.0-17.5) Hematocrit 34.7% (39.0-53.0) Mean Corpuscular Volume 94fL (79-100) Mean Corpuscular Hemoglobin 31pg (25-35) Mean Corpuscular Hemoglobin Concent 33g/dL (31-37) Red Cell Distribution Width 15.5% (11.5-14.5) Platelet Count 246x10^3/uL (140-400) Neutrophils (%) (Auto) 70% (31-73) Lymphocytes (%) (Auto) 13% (24-48) Monocytes (%) (Auto) 12% (0-9) Eosinophils (%) (Auto) 5% (0-3) Basophils (%) (Auto) 1% (0-3) Neutrophils # (Auto) 6.8x10^3uL (1.8-7.7) Lymphocytes # (Auto) 1.2x10^3/uL (1.0-4.8) Monocytes # (Auto) 1.1x10^3/uL (0.0-1.1) Eosinophils # (Auto) 0.4x10^3/uL (0.0-0.7) Basophils # (Auto) 0.1x10^3/uL (0.0-0.2) Sodium Level 142mmol/L (136-145) Potassium Level 4.0mmol/L (3.5-5.1) Chloride Level 105mmol/L (98-107) Carbon Dioxide Level 28mmol/L (21-32) Anion Gap 9 (6-14) Blood Urea Nitrogen 18mg/dL (8-26) Creatinine 1.1mg/dL (0.7-1.3) Estimated GFR (Cockcroft-Gault) 63.8 Glucose Level 102mg/dL (70-99) Calcium Level 9.1mg/dL (8.5-10.1) Review of Systems Review of Systems no fever, chills, sob or chest pain Assessment and Plan Assessmemt and Plan Problems Medical Problems: (1) Pneumonia Status: Acute (2) Tachycardia Status: Acute Problems: Comment Review of Relevant I have reviewed the following items donald (where applicable) has been applied. Labs Laboratory Tests Test 07/11/16 03:54 07/11/16 09:30 07/12/16 09:04 White Blood Count 11.2x10^3/uL (4.0-11.0) 9.7x10^3/uL (4.0-11.0) Red Blood Count 3.61x10^6/uL (4.30-5.70) 3.68x10^6/uL (4.30-5.70) Hemoglobin 11.3g/dL (13.0-17.5) 11.4g/dL (13.0-17.5) Hematocrit 34.9% (39.0-53.0) 34.7% (39.0-53.0) Mean Corpuscular Volume 97fL (79-100) 94fL (79-100) Mean Corpuscular Hemoglobin 31pg (25-35) 31pg (25-35) Mean Corpuscular Hemoglobin Concent 32g/dL (31-37) 33g/dL (31-37) Red Cell Distribution Width 15.7% (11.5-14.5) 15.5% (11.5-14.5) Platelet Count 213x10^3/uL (140-400) 246x10^3/uL (140-400) Neutrophils (%) (Auto) 69% (31-73) 70% (31-73) Lymphocytes (%) (Auto) 14% (24-48) 13% (24-48) Monocytes (%) (Auto) 16% (0-9) 12% (0-9) Eosinophils (%) (Auto) 1% (0-3) 5% (0-3) Basophils (%) (Auto) 1% (0-3) 1% (0-3) Neutrophils # (Auto) 7.7x10^3uL (1.8-7.7) 6.8x10^3uL (1.8-7.7) Lymphocytes # (Auto) 1.6x10^3/uL (1.0-4.8) 1.2x10^3/uL (1.0-4.8) Monocytes # (Auto) 1.8x10^3/uL (0.0-1.1) 1.1x10^3/uL (0.0-1.1) Eosinophils # (Auto) 0.1x10^3/uL (0.0-0.7) 0.4x10^3/uL (0.0-0.7) Basophils # (Auto) 0.1x10^3/uL (0.0-0.2) 0.1x10^3/uL (0.0-0.2) Sodium Level 142mmol/L (136-145) 142mmol/L (136-145) Potassium Level 3.7mmol/L (3.5-5.1) 4.0mmol/L (3.5-5.1) Chloride Level 105mmol/L (98-107) 105mmol/L (98-107) Carbon Dioxide Level 26mmol/L (21-32) 28mmol/L (21-32) Anion Gap 11 (6-14) 9 (6-14) Blood Urea Nitrogen 15mg/dL (8-26) 18mg/dL (8-26) Creatinine 1.2mg/dL (0.7-1.3) 1.1mg/dL (0.7-1.3) Estimated GFR (Cockcroft-Gault) 57.7 63.8 Glucose Level 97mg/dL (70-99) 102mg/dL (70-99) Calcium Level 9.1mg/dL (8.5-10.1) 9.1mg/dL (8.5-10.1) Erythrocyte Sedimentation Rate 104 (0-15) Laboratory Tests Test 07/12/16 09:04 White Blood Count 9.7x10^3/uL (4.0-11.0) Red Blood Count 3.68x10^6/uL (4.30-5.70) Hemoglobin 11.4g/dL (13.0-17.5) Hematocrit 34.7% (39.0-53.0) Mean Corpuscular Volume 94fL (79-100) Mean Corpuscular Hemoglobin 31pg (25-35) Mean Corpuscular Hemoglobin Concent 33g/dL (31-37) Red Cell Distribution Width 15.5% (11.5-14.5) Platelet Count 246x10^3/uL (140-400) Neutrophils (%) (Auto) 70% (31-73) Lymphocytes (%) (Auto) 13% (24-48) Monocytes (%) (Auto) 12% (0-9) Eosinophils (%) (Auto) 5% (0-3) Basophils (%) (Auto) 1% (0-3) Neutrophils # (Auto) 6.8x10^3uL (1.8-7.7) Lymphocytes # (Auto) 1.2x10^3/uL (1.0-4.8) Monocytes # (Auto) 1.1x10^3/uL (0.0-1.1) Eosinophils # (Auto) 0.4x10^3/uL (0.0-0.7) Basophils # (Auto) 0.1x10^3/uL (0.0-0.2) Sodium Level 142mmol/L (136-145) Potassium Level 4.0mmol/L (3.5-5.1) Chloride Level 105mmol/L (98-107) Carbon Dioxide Level 28mmol/L (21-32) Anion Gap 9 (6-14) Blood Urea Nitrogen 18mg/dL (8-26) Creatinine 1.1mg/dL (0.7-1.3) Estimated GFR (Cockcroft-Gault) 63.8 Glucose Level 102mg/dL (70-99) Calcium Level 9.1mg/dL (8.5-10.1) Microbiology 07/08/16 Blood Culture - Preliminary, Resulted NO GROWTH AFTER 3 DAYS 07/08/16 Urine Culture - Final, Complete 07/08/16 Urine Culture Result 1 (JULIET) - Final, Complete Medications Current Medications Vancomycin HCl (Vanco Per Pharmacy) 1 each PRN DAILY PRN MC SEE COMMENTS Last administered on 07/09/16 14:10; Start 07/08/16 at 20:30; Stop 07/09/16 at 17:10 ; Status DC Piperacillin Sod/ Tazobactam Sod 1 each 1 each PRN DAILY PRN MC SEE COMMENTS; Start 07/08/16 at 20:30; Stop 07/09/16 at 16:57; Status DC Sodium Chloride 500 ml @ 500 mls/hr 1X ONCE IV Last administered on 21:22; Start 07/08/16 at 20:45; Stop 07/08/16 at 21:44; Status DC Piperacillin Sod/ Tazobactam Sod 3.375 gm/Sodium Chloride 50 ml @ 100 mls/hr 1X ONCE IV Last administered on 07/08/16 21:00; Start 07/08/16 at 21:00; Stop 07/09/16 at 15:38; Status DC Vancomycin HCl/ Sodium Chloride (Iv Sodium Chloride 0.9% 500ml Bag) 500 ml @ 250 mls/hr 1X ONCE IV Last administered on 07/08/16 21:00; Start 07/08/16 at 21:00; Stop 07/09/16 at 15:38; Status DC Ondansetron HCl (Zofran) 4 mg PRN Q8HRS PRN IV NAUSEA/VOMITING; Start 07/08/16 at 23:00; Stop 07/08/16 at 23:15; Status DC Morphine Sulfate 2 mg 2 mg PRN Q2HR PRN IV SEVERE PAIN; Start 07/08/16 at 23:00 ; Stop 07/09/16 at 22:59; Status DC Sodium Chloride (Iv Sodium Chloride 0.9% 1000ml Bag) 1,000 ml @ 50 mls/hr Q20H IV Last administered on 07/09/16 03:09; Start 07/08/16 at 22:59; Stop at 22:58; Status DC Acetaminophen 650 mg 650 mg PRN Q4HRS PRN PO FEVER; Start 07/08/16 at 23:00; Stop 07/09/16 at 11:33; Status DC Piperacillin Sod/ Tazobactam Sod 3.375 gm/Sodium Chloride 50 ml @ 100 mls/hr Q6HRS IV Last administered on 07/09/16 12:34; Start 07/09/16 at 06:00; Stop at 15:38; Status DC Vancomycin HCl/ Sodium Chloride (Iv Sodium Chloride 0.9% 250ml) 250 ml @ 167 mls/hr Q24H IV ; Start 07/09/16 at 21:00; Stop 07/09/16 at 21:00; Status DC Vancomycin HCl 1 each 1X ONCE MC ; Start 07/10/16 at 20:30; Stop 07/10/16 at 20 :30; Status DC Acetaminophen (Tylenol) 325 mg PRN Q6HRS PRN PO MILD PAIN / TEMP Last administered on 07/11/16 10:44; Start 07/09/16 at 09:30 Acetaminophen/ Hydrocodone Bitart (Lortab 5/325) 1 tab PRN Q6HRS PRN PO MODERATE TO SEVERE PAIN; Start 07/09/16 at 09:30; Stop 07/09/16 at 14:08; Status DC Hydralazine HCl (Apresoline) 10 mg PRN Q4HRS PRN IVP ELEVATED BP, SEE COMMENTS ; Start 07/09/16 at 09:30; Stop 07/09/16 at 14:08; Status DC Ondansetron HCl (Zofran) 4 mg PRN Q8HRS PRN IV NAUSEA/VOMITING; Start 07/09/16 at 09:30 Albuterol Sulfate (Ventolin Neb Soln) 2.5 mg PRN Q4HRS PRN NEB SHORTNESS OF BREATH; Start 07/09/16 at 09:30 Cyclobenzaprine HCl (Flexeril) 5 mg PRN Q6HRS PRN PO MUSCLE SPASMS Last administered on 07/10/16 13:24; Start 07/09/16 at 11:30; Stop 07/11/16 at 09:30 ; Status DC Amlodipine Besylate (Norvasc) 5 mg DAILY PO ; Start 07/09/16 at 12:00; Status Cancel Metoprolol Tartrate (Lopressor) 25 mg DAILY PO Last administered on 07/10/16 09:53; Start 07/09/16 at 17:00; Stop 07/10/16 at 14:08; Status DC Acetaminophen (Tylenol) 325 mg PRN Q6HRS PRN PO MILD PAIN / TEMP; Start at 11:30; Stop 07/09/16 at 11:35; Status DC Acetaminophen/ Hydrocodone Bitart (Lortab 5/325) 1 tab PRN Q6HRS PRN PO MODERATE TO SEVERE PAIN Last administered on 07/11/16 09:03; Start 07/09/16 at 11:30 Hydralazine HCl (Apresoline) 10 mg PRN Q4HRS PRN IVP ELEVATED BP, SEE COMMENTS ; Start 07/09/16 at 11:30 Ondansetron HCl (Zofran) 4 mg PRN Q8HRS PRN IV NAUSEA/VOMITING; Start 07/09/16 at 11:30; Stop 07/09/16 at 11:35; Status DC Albuterol Sulfate (Ventolin Neb Soln) 2.5 mg PRN Q4HRS PRN NEB SHORTNESS OF BREATH; Start 07/09/16 at 11:30; Stop 07/09/16 at 11:36; Status DC Amlodipine Besylate (Norvasc) 5 mg DAILY PO Last administered on 07/11/16 09: 04; Start 07/09/16 at 16:00 Amoxicillin/ Clavulanate Potassium (Augmentin 875/ 125mg) 1 tab BID PO Last administered on 07/11/16 09:02; Start 07/09/16 at 21:00; Stop 07/11/16 at 14:02 ; Status DC Enoxaparin Sodium (Lovenox 40mg Syringe) 40 mg QHS SQ Last administered on 07/11 20:37; Start 07/09/16 at 21:00 Acetaminophen (Tylenol) 600 mg PRN Q6HRS PRN PO MILD PAIN / TEMP; Start at 16:00; Stop 07/11/16 at 14:38; Status DC Alprazolam (Xanax) 0.25 mg PRN Q8HRS PRN PO ANXIETY / AGITATION; Start at 16:00 Vitamin D (Vitamin D3) 1,000 unit DAILY PO Last administered on 07/11/16 09:02 ; Start 07/10/16 at 09:00 Docusate Sodium (Colace) 100 mg BID PO Last administered on 07/11/16 09:02; Start 07/09/16 at 21:00 Escitalopram Oxalate (Lexapro) 10 mg DAILY PO Last administered on 07/11/16 09 :06; Start 07/10/16 at 09:00 Famotidine (Pepcid) 20 mg BID PO Last administered on 07/11/16 09:02; Start at 21:00; Stop 07/11/16 at 14:02; Status DC Sertraline HCl (Zoloft) 50 mg HS PO Last administered on 07/10/16 21:03; Start 07/09/16 at 21:00 Tamsulosin HCl (Flomax) 0.4 mg QHS PO Last administered on 07/10/16 21:04; Start 07/10/16 at 21:00 Donepezil HCl (Aricept) 10 mg BID PO Last administered on 07/11/16 09:02; Start 07/09/16 at 21:00 Non-Formulary Medication 100 mg BID PO ; Start 07/09/16 at 21:00; Stop 07/09/16 at 21:00; Status DC Lactobacillus Acidophilus (Bacid, Apple-Bid) 1 tab QHS PO Last administered on 21:03; Start 07/10/16 at 21:00 Non-Formulary Medication 3 mg QHS PO ; Start 07/09/16 at 21:00; Stop 07/09/16 at 21:00; Status DC Memantine (Namenda) 10 mg BID PO Last administered on 07/11/16 09:02; Start at 21:00 Potassium Chloride (Klor-Con) 10 meq [id number] PO Last administered on 09:02; Start 07/10/16 at 08:00 Triamcinolone Acetonide 1 alaina 1 alaina BID TP Last administered on 07/12/16 11:51 ; Start 07/09/16 at 21:00 Sodium Chloride (Iv Sodium Chloride 0.9% 1000ml Bag) 1,000 ml @ 1,000 mls/hr 1X ONCE IV Last administered on 07/10/16 09:53; Start 07/10/16 at 09:45; Stop 07/10/16 at 10:44; Status DC Metoprolol Tartrate (Lopressor) 25 mg BID PO Last administered on 07/11/16 09: 03; Start 07/10/16 at 21:00; Stop 07/11/16 at 10:41; Status DC Aspirin (Ecotrin) 81 mg [id number] PO Last administered on 07/11/16 09:01; Start 07/10/16 at 15:00 Digoxin (Lanoxin) 250 mcg 1X ONCE IV Last administered on 07/10/16 18:22; Start 07/10/16 at 17:30; Stop 07/10/16 at 17:33; Status DC Cyclobenzaprine HCl (Flexeril) 5 mg Q6HRS PO Last administered on 07/11/16 10: 43; Start 07/11/16 at 09:30; Stop 07/12/16 at 18:00 Ketorolac Tromethamine (Toradol) 30 mg 1X ONCE IV Last administered on 10:44; Start 07/11/16 at 09:30; Stop 07/11/16 at 09:31; Status DC Metoprolol Tartrate 50 mg 50 mg BID PO ; Start 07/11/16 at 21:00; Stop 07/11/16 at 21:00; Status DC Piperacillin Sod/ Tazobactam Sod/ Sodium Chloride (Zosyn/Iv Sodium Chloride 0.9 % 50ml) 50 ml @ 100 mls/hr Q6HRS IV Last administered on 07/12/16 11:51; Start 07/11/16 at 15:00 Piperacillin Sod/ Tazobactam Sod (Zosyn Per Pharmacy) 1 each PRN DAILY PRN MC SEE COMMENTS; Start 07/11/16 at 14:00 Metoprolol Tartrate (Lopressor) 5 mg Q6HRS IVP Last administered on 07/12/16 11:50; Start 07/11/16 at 18:00 Famotidine 20 mg 20 mg QHS IVP Last administered on 07/11/16 20:36; Start at 21:00 Amino Acids/ Electrolytes (Clinimix E 2.75%-5% Solution) 2,000 ml @ 80 mls/hr Q24H IV Last administered on 07/11/16 15:46; Start 07/11/16 at 14:30 Acetaminophen (Tylenol) 650 mg PRN Q6HRS PRN PO MILD PAIN / TEMP; Start at 14:45 Active Scripts Active Reported Zoloft (Sertraline Hcl) 50 Mg Tablet 50 Mg PO HS Xanax (Alprazolam) 0.25 Mg Tablet 0.25 Mg PO PRN Q8HRS PRN Vitamin D3 (Cholecalciferol (Vitamin D3)) 1,000 Unit Tablet 1,000 Unit PO DAILY Acetaminophen 325 Mg Tablet 600 Mg PO PRN Q6HRS PRN Triamcinolone Acetonide 80 Gm Oint...g. 80 Gm TP BID Tamsulosin Hcl 0.4 Mg Cap.er.24h 0.4 Mg PO DAILY Potassium Chloride 10 Meq Capsule.er 10 Meq PO DAILY Namenda Xr (Memantine Hcl) 28 Mg Cap.spr.24 28 Mg PO DAILY Melatonin 3 Mg Tablet 3 Mg PO QHS Escitalopram Oxalate 10 Mg Tablet 10 Mg PO DAILY Famotidine 20 Mg Tablet 20 Mg PO BID Doxycycline Monohydrate 100 Mg Capsule 100 Mg PO BID Donepezil Hcl 23 Mg Tablet 23 Mg PO DAILY Colace (Docusate Sodium) 100 Mg Capsule 100 Mg PO BID Acidophilus Lactobacillus (Lactobacillus Acidophilus) 1 Each Capsule 1 Each PO HS Metoprolol Tartrate 25 Mg Tablet 1 Tab PO DAILY Amlodipine Besylate 5 Mg Tablet 5 Mg PO DAILY Vitals/I & O Vital Sign - Last 24 Hours 07/11/16 07/11/16 07/11/16 07/11/16 15:00 18:26 19:10 20:00 Temp 97.9 97.4 97.9 97.4 Pulse 65 65 65 Resp 20 12 B/P 91/48 151/79 113/60 Pulse Ox 92 96 O2 Delivery Room Air Room Air Room Air 07/11/16 07/12/16 07/12/16 07/12/16 23:10 03:10 06:15 07:00 Temp 97.7 98.2 97.8 97.7 98.2 97.8 Pulse 44 112 131 69 Resp 16 16 20 B/P 127/61 113/50 137/96 138/68 Pulse Ox 96 94 93 O2 Delivery Room Air Room Air Room Air 07/12/16 07/12/16 07/12/16 09:00 11:00 11:50 Temp 97.9 97.9 Pulse 69 110 110 Resp 16 B/P 138/68 117/67 117/67 Pulse Ox 93 O2 Delivery Room Air Intake and Output 07/11/16 07/11/16 07/12/16 15:00 23:00 07:00 Intake Total 366.16 ml 930 ml Output Total 400 ml Balance 366.16 ml 530 ml NAVNEET CRAWFORD MD Jul 12, 2016 12:41
[2016-07-12 15:00] VITALS: BP 126/54
--- NOTE | 2016-07-12 15:25 | PDOC2 ---
PALLIATIVE CARE Palliative Care Note Palliative Care Consult requested by Dr. Morton to address goals of care/hosipce. Patient more alert this afternoon. Sitting up in bed participating in swallow evaluation. Patient confused at times. Met with son Tim and his . Tim is court appointed guardian. Document on record Code Status: DNR/DNI Confirmed with family. Family declined signature on outside the hospital DNR/DNI form. Reviewed diagnosis; Right pleural effusion; metabolic encephalopathy, possible pneumonia, Alzheimer Disease; at fib with RVR; dysphagia--improved. Patient has been a resident of [facility] for 1.5 years. Discussed options for care. continue current treatment plan vs. comfort care/ hospice vs limitation of care Family has seen some decline. Understands today is a particularly good day -- wants to watch for any trend. Will talk with Ailyn FARMER at [facility] before making any choices about his care. Plan: DNR/DNI Continue current treatment plan. SANDI OLVERA Jul 12, 2016 15:24
[2016-07-12] MEDS: AA 2.75%/CALCIUM/LYTES/D5W 2,000 ML IV SCH (16:24)
[2016-07-12 19:05] VITALS: BP 122/49
[2016-07-12] MEDS: LACTOBACILLUS ACIDOPH & BULGAR 1 TABLET. PO SCH (21:00)
[2016-07-12] MEDS: ENOXAPARIN 40 MG/0.4 ML SYRINGE. SQ SCH (21:03)
[2016-07-12] MEDS: TAMSULOSIN 0.4 MG CAP.ER.24H. PO SCH (21:03)
[2016-07-12] MEDS: FAMOTIDINE 20 MG/2 ML VIAL IVP SCH (21:04)
[2016-07-12] MEDS: SERTRALINE 50 MG TABLET. PO SCH (21:04)
[2016-07-12 23:05] VITALS: BP 118/48
[2016-07-13] MEDS: METOPROLOL TARTRATE 5 MG/5 ML VIAL. IVP SCH ×2 (00:08→05:21)
[2016-07-13] MEDS: PIPERACILLIN/TAZOBACTAM 3.375 GM in IV NORMAL SALINE 50ML 50 ML IV SCH ×5 (00:08→23:50)
[2016-07-13 03:05] VITALS: BP 132/70
[2016-07-13 04:45] LABS: BASO # 0.1 x10^3/uL (0.0-0.2); BASO % 1 % (0-3); EOS % 4 % (0-3); HEMATOCRIT 36.3 % (39.0-53.0); HEMOGLOBIN 12.1 g/dL (13.0-17.5); LYMPH # 1.7 x10^3/uL (1.0-4.8); LYMPH % 20 % (24-48); MEAN CORPUSCULAR HEMOGLOBIN 31 pg (25-35); MEAN CORPUSCULAR HGB CONC 33 g/dL (31-37); MEAN CORPUSCULAR VOLUME 94 fL (79-100); MONO % 10 % (0-9); NEUT % 65 % (31-73); PLATELET COUNT 285 x10^3/uL (140-400); RED BLOOD COUNT 3.86 x10^6/uL (4.30-5.70); RED CELL DISTRIBUTION WIDTH 15.2 % (11.5-14.5); WHITE BLOOD COUNT 8.4 x10^3/uL (4.0-11.0)
[2016-07-13 04:56] LABS: CALCIUM 8.5 mg/dL (8.5-10.1); GFR 71.2; POTASSIUM 3.9 mmol/L (3.5-5.1)
[2016-07-13 07:00] VITALS: BP 130/52
[2016-07-13] MEDS: DOCUSATE SODIUM 100 MG CAPSULE PO SCH ×2 (08:51→22:25)
[2016-07-13] MEDS: ESCITALOPRAM 10 MG TABLET. PO SCH (08:51)
[2016-07-13] MEDS: MEMANTINE 10 MG TABLET. PO SCH ×2 (08:51→22:25)
[2016-07-13] MEDS: DONEPEZIL HCL 10 MG TABLET. PO SCH ×2 (08:51→22:25)
[2016-07-13] MEDS: AMLODIPINE BESYLATE 5 MG TABLET PO SCH (08:52)
[2016-07-13] MEDS: ASPIRIN ENTERIC COATED 81 MG TABLET.DR. PO SCH (08:52)
[2016-07-13] MEDS: POTASSIUM CHLORIDE 10 MEQ TABLET.ER. PO SCH (08:52)
[2016-07-13] MEDS: CHOLECALCIFEROL (VITAMIN D3) 1,000 UNIT TABLET PO SCH (08:52)
[2016-07-13] MEDS: TRIAMCINOLONE ACETONIDE 0.1% TOPICAL CREAM 15GM TUBE. TP SCH ×2 (09:00→21:00)
--- NOTE | 2016-07-13 09:46 | PDOC ---
PULMONARY PROGRESS NOTES Subjective more awake and verbal today Vitals Vital Signs Date Time Temp Pulse Resp B/P Pulse Ox O2 Delivery O2 Flow Rate FiO2 07/13/16 08:52 111 130/52 07/13/16 07:00 97.5 18 96 Room Air 97.5 Lungs: Other (right side decreased bs) Cardiovascular: S1, S2 Abdomen: Soft Neuro Exam: Alert Extremities: No Edema Skin: Warm Labs Laboratory Tests Test 07/12/16 09:04 07/13/16 03:25 White Blood Count 9.7x10^3/uL (4.0-11.0) 8.4x10^3/uL (4.0-11.0) Red Blood Count 3.68x10^6/uL (4.30-5.70) 3.86x10^6/uL (4.30-5.70) Hemoglobin 11.4g/dL (13.0-17.5) 12.1g/dL (13.0-17.5) Hematocrit 34.7% (39.0-53.0) 36.3% (39.0-53.0) Mean Corpuscular Volume 94fL (79-100) 94fL (79-100) Mean Corpuscular Hemoglobin 31pg (25-35) 31pg (25-35) Mean Corpuscular Hemoglobin Concent 33g/dL (31-37) 33g/dL (31-37) Red Cell Distribution Width 15.5% (11.5-14.5) 15.2% (11.5-14.5) Platelet Count 246x10^3/uL (140-400) 285x10^3/uL (140-400) Neutrophils (%) (Auto) 70% (31-73) 65% (31-73) Lymphocytes (%) (Auto) 13% (24-48) 20% (24-48) Monocytes (%) (Auto) 12% (0-9) 10% (0-9) Eosinophils (%) (Auto) 5% (0-3) 4% (0-3) Basophils (%) (Auto) 1% (0-3) 1% (0-3) Neutrophils # (Auto) 6.8x10^3uL (1.8-7.7) 5.5x10^3uL (1.8-7.7) Lymphocytes # (Auto) 1.2x10^3/uL (1.0-4.8) 1.7x10^3/uL (1.0-4.8) Monocytes # (Auto) 1.1x10^3/uL (0.0-1.1) 0.9x10^3/uL (0.0-1.1) Eosinophils # (Auto) 0.4x10^3/uL (0.0-0.7) 0.3x10^3/uL (0.0-0.7) Basophils # (Auto) 0.1x10^3/uL (0.0-0.2) 0.1x10^3/uL (0.0-0.2) Sodium Level 142mmol/L (136-145) 146mmol/L (136-145) Potassium Level 4.0mmol/L (3.5-5.1) 3.9mmol/L (3.5-5.1) Chloride Level 105mmol/L (98-107) 106mmol/L (98-107) Carbon Dioxide Level 28mmol/L (21-32) 30mmol/L (21-32) Anion Gap 9 (6-14) 10 (6-14) Blood Urea Nitrogen 18mg/dL (8-26) 19mg/dL (8-26) Creatinine 1.1mg/dL (0.7-1.3) 1.0mg/dL (0.7-1.3) Estimated GFR (Cockcroft-Gault) 63.8 71.2 Glucose Level 102mg/dL (70-99) 86mg/dL (70-99) Calcium Level 9.1mg/dL (8.5-10.1) 8.5mg/dL (8.5-10.1) Magnesium Level 2.2mg/dL (1.8-2.4) Laboratory Tests Test 07/13/16 03:25 White Blood Count 8.4x10^3/uL (4.0-11.0) Red Blood Count 3.86x10^6/uL (4.30-5.70) Hemoglobin 12.1g/dL (13.0-17.5) Hematocrit 36.3% (39.0-53.0) Mean Corpuscular Volume 94fL (79-100) Mean Corpuscular Hemoglobin 31pg (25-35) Mean Corpuscular Hemoglobin Concent 33g/dL (31-37) Red Cell Distribution Width 15.2% (11.5-14.5) Platelet Count 285x10^3/uL (140-400) Neutrophils (%) (Auto) 65% (31-73) Lymphocytes (%) (Auto) 20% (24-48) Monocytes (%) (Auto) 10% (0-9) Eosinophils (%) (Auto) 4% (0-3) Basophils (%) (Auto) 1% (0-3) Neutrophils # (Auto) 5.5x10^3uL (1.8-7.7) Lymphocytes # (Auto) 1.7x10^3/uL (1.0-4.8) Monocytes # (Auto) 0.9x10^3/uL (0.0-1.1) Eosinophils # (Auto) 0.3x10^3/uL (0.0-0.7) Basophils # (Auto) 0.1x10^3/uL (0.0-0.2) Sodium Level 146mmol/L (136-145) Potassium Level 3.9mmol/L (3.5-5.1) Chloride Level 106mmol/L (98-107) Carbon Dioxide Level 30mmol/L (21-32) Anion Gap 10 (6-14) Blood Urea Nitrogen 19mg/dL (8-26) Creatinine 1.0mg/dL (0.7-1.3) Estimated GFR (Cockcroft-Gault) 71.2 Glucose Level 86mg/dL (70-99) Calcium Level 8.5mg/dL (8.5-10.1) Medications Active Scripts Medications Dose Route/Sig Days Date Category Zoloft (Sertraline Hcl) 50 Mg Tablet 50 Mg PO HS 07/09/16 Reported Xanax (Alprazolam) 0.25 Mg Tablet 0.25 Mg PO PRN Q8HRS PRN 07/09/16 Reported Vitamin D3 (Cholecalciferol (Vitamin D3)) 1,000 Unit Tablet 1,000 Unit PO DAILY 07/09/16 Reported Acetaminophen 325 Mg Tablet 600 Mg PO PRN Q6HRS PRN 07/09/16 Reported Triamcinolone Acetonide 80 Gm Oint...g. 80 Gm TP BID 07/09/16 Reported Tamsulosin Hcl 0.4 Mg Cap.er.24h 0.4 Mg PO DAILY 07/09/16 Reported Potassium Chloride 10 Meq Capsule.er 10 Meq PO DAILY 07/09/16 Reported Namenda Xr (Memantine Hcl) 28 Mg Cap.spr.24 28 Mg PO DAILY 07/09/16 Reported Melatonin 3 Mg Tablet 3 Mg PO QHS 07/09/16 Reported Escitalopram Oxalate 10 Mg Tablet 10 Mg PO DAILY 07/09/16 Reported Famotidine 20 Mg Tablet 20 Mg PO BID 07/09/16 Reported Doxycycline Monohydrate 100 Mg Capsule 100 Mg PO BID 07/09/16 Reported Donepezil Hcl 23 Mg Tablet 23 Mg PO DAILY 07/09/16 Reported Colace (Docusate Sodium) 100 Mg Capsule 100 Mg PO BID 07/09/16 Reported Acidophilus Lactobacillus (Lactobacillus Acidophilus) 1 Each Capsule 1 Each PO HS 07/09/16 Reported Metoprolol Tartrate 25 Mg Tablet 1 Tab PO DAILY 07/09/16 Reported Amlodipine Besylate 5 Mg Tablet 5 Mg PO DAILY 07/09/16 Reported Impression . 1. Abnormal CT of the chest revealing large right-sided effusion. 2. Metabolic/toxic encephalopathy. 3. Possible pneumonia with parapneumonic effusion. 4. Alzheimer's disease. 5. Atrial fibrillation with rapid ventricular response. 6. Dysphagia. Plan . d/w daughter in Law she informed me that her wishes to proceed with palliative care possible hospice they do not want a thoracentesis continue the same for now NICOLETTE COELHO MD Jul 13, 2016 09:46
[2016-07-13 10:44] VITALS: BP 130/77
--- NOTE | 2016-07-13 10:44 | PDOC ---
CARDIO Progress Notes Date and Time Date of Service 07/13/2016 Time of Evaluation 1042 Subjective Subjective: Other (awake and verbally interactive today) Vitals Vitals Vital Signs Date Time Temp Pulse Resp B/P Pulse Ox O2 Delivery O2 Flow Rate FiO2 07/13/16 08:52 111 130/52 07/13/16 07:00 97.5 18 96 Room Air 97.5 Weight Weight [ ] Input and Output Intake and Output Intake and Output 07/13/16 07:00 Intake Total 480 ml Balance 480 ml Intake Oral 480 ml # Voids 8 Laboratory Labs Laboratory Tests Test 07/13/16 03:25 White Blood Count 8.4x10^3/uL (4.0-11.0) Red Blood Count 3.86x10^6/uL (4.30-5.70) Hemoglobin 12.1g/dL (13.0-17.5) Hematocrit 36.3% (39.0-53.0) Mean Corpuscular Volume 94fL (79-100) Mean Corpuscular Hemoglobin 31pg (25-35) Mean Corpuscular Hemoglobin Concent 33g/dL (31-37) Red Cell Distribution Width 15.2% (11.5-14.5) Platelet Count 285x10^3/uL (140-400) Neutrophils (%) (Auto) 65% (31-73) Lymphocytes (%) (Auto) 20% (24-48) Monocytes (%) (Auto) 10% (0-9) Eosinophils (%) (Auto) 4% (0-3) Basophils (%) (Auto) 1% (0-3) Neutrophils # (Auto) 5.5x10^3uL (1.8-7.7) Lymphocytes # (Auto) 1.7x10^3/uL (1.0-4.8) Monocytes # (Auto) 0.9x10^3/uL (0.0-1.1) Eosinophils # (Auto) 0.3x10^3/uL (0.0-0.7) Basophils # (Auto) 0.1x10^3/uL (0.0-0.2) Sodium Level 146mmol/L (136-145) Potassium Level 3.9mmol/L (3.5-5.1) Chloride Level 106mmol/L (98-107) Carbon Dioxide Level 30mmol/L (21-32) Anion Gap 10 (6-14) Blood Urea Nitrogen 19mg/dL (8-26) Creatinine 1.0mg/dL (0.7-1.3) Estimated GFR (Cockcroft-Gault) 71.2 Glucose Level 86mg/dL (70-99) Calcium Level 8.5mg/dL (8.5-10.1) Microbiology Micro Microbiology 07/08/16 Blood Culture - Preliminary, Resulted NO GROWTH AFTER 4 DAYS 07/08/16 Urine Culture - Final, Complete 07/08/16 Urine Culture Result 1 (JULIET) - Final, Complete Physical Exam HEENT: Neck Supple W Full Motion Chest: Symmetric LUNGS: Other (decreased in bases) Heart: S1S2, irregularly irregular, other (tele: atrial fib with intermittent RVR) Extremities: No Edema Neurology: alert Assessment Assessment 1. atrial fib with RVR rates consistently labile in the last 24 hours - has converted back to oral BB [id number] = 3 corresponding to 3.2% risk of stroke per year; OAC would generally be recommend - ? candidate with dementia - ? mobility continue aspirin and lovenox for now 2. dehydration/pneumonia per primary service will follow peripherally may return to facility when planned by primary service SUGEY SHANE APRN Jul 13, 2016 10:44
--- NOTE | 2016-07-13 11:44 | PDOC ---
PROGRESS NOTES Chief Complaint Chief Complaint a/p 1. Severe dehydration. 2. Decreased oral intake, failure to thrive. 3. Hypertension. 4. Atrial fibrillation with RVR 5. Neck pain possible due to spasm 6. Dementia severe 7. dysphagia, 2/2 dementia likely 8. neck DJD 9. right pleural effusion with possible asp PNA Plan Flexeril iv hydration dc iv metoprolol fu with neuro, cad. ct chest , get pulm consult, may need thoracentesis, but family refused at the beginning, but agree now PT/OT dc Augmentin, add zosyn for now dvt, gi ppx failed swallow 07/11 family refuse hospice, pt is better today, disphagia 1 diet, add metoprolol 50mg bid now, defer to dr. Lozoya if thoracentesis, hope dc soon History of Present Illness History of Present Illness afebrile night of 07/11 very weak and confused, slightly better today, able to talk a little bit on 07/11 barely able to move left side on 07/11, but better on 07/12, can squeeze my hands bl , better 07/13 failed swallow 07/11, passed 07/12 still tachycardia with afib at 100s Vitals Vitals Vital Signs Date Time Temp Pulse Resp B/P Pulse Ox O2 Delivery O2 Flow Rate FiO2 07/13/16 10:44 97.7 128 18 130/77 94 Room Air 97.7 Physical Exam Physical Exam aaox1 to person only General: Alert Heart: Normal S1, Normal S2, Other (irregular) Lungs: Other (right side decreased bs) Abdomen: Normal bowel sounds, Soft Extremities: No clubbing, No cyanosis Labs LABS Laboratory Tests Test 07/13/16 03:25 White Blood Count 8.4x10^3/uL (4.0-11.0) Red Blood Count 3.86x10^6/uL (4.30-5.70) Hemoglobin 12.1g/dL (13.0-17.5) Hematocrit 36.3% (39.0-53.0) Mean Corpuscular Volume 94fL (79-100) Mean Corpuscular Hemoglobin 31pg (25-35) Mean Corpuscular Hemoglobin Concent 33g/dL (31-37) Red Cell Distribution Width 15.2% (11.5-14.5) Platelet Count 285x10^3/uL (140-400) Neutrophils (%) (Auto) 65% (31-73) Lymphocytes (%) (Auto) 20% (24-48) Monocytes (%) (Auto) 10% (0-9) Eosinophils (%) (Auto) 4% (0-3) Basophils (%) (Auto) 1% (0-3) Neutrophils # (Auto) 5.5x10^3uL (1.8-7.7) Lymphocytes # (Auto) 1.7x10^3/uL (1.0-4.8) Monocytes # (Auto) 0.9x10^3/uL (0.0-1.1) Eosinophils # (Auto) 0.3x10^3/uL (0.0-0.7) Basophils # (Auto) 0.1x10^3/uL (0.0-0.2) Sodium Level 146mmol/L (136-145) Potassium Level 3.9mmol/L (3.5-5.1) Chloride Level 106mmol/L (98-107) Carbon Dioxide Level 30mmol/L (21-32) Anion Gap 10 (6-14) Blood Urea Nitrogen 19mg/dL (8-26) Creatinine 1.0mg/dL (0.7-1.3) Estimated GFR (Cockcroft-Gault) 71.2 Glucose Level 86mg/dL (70-99) Calcium Level 8.5mg/dL (8.5-10.1) Review of Systems Review of Systems no fever, chills, sob or chest pain Assessment and Plan Assessmemt and Plan Problems Medical Problems: (1) Pneumonia Status: Acute (2) Tachycardia Status: Acute Problems: Comment Review of Relevant I have reviewed the following items donald (where applicable) has been applied. Labs Laboratory Tests Test 07/12/16 09:04 07/13/16 03:25 White Blood Count 9.7x10^3/uL (4.0-11.0) 8.4x10^3/uL (4.0-11.0) Red Blood Count 3.68x10^6/uL (4.30-5.70) 3.86x10^6/uL (4.30-5.70) Hemoglobin 11.4g/dL (13.0-17.5) 12.1g/dL (13.0-17.5) Hematocrit 34.7% (39.0-53.0) 36.3% (39.0-53.0) Mean Corpuscular Volume 94fL (79-100) 94fL (79-100) Mean Corpuscular Hemoglobin 31pg (25-35) 31pg (25-35) Mean Corpuscular Hemoglobin Concent 33g/dL (31-37) 33g/dL (31-37) Red Cell Distribution Width 15.5% (11.5-14.5) 15.2% (11.5-14.5) Platelet Count 246x10^3/uL (140-400) 285x10^3/uL (140-400) Neutrophils (%) (Auto) 70% (31-73) 65% (31-73) Lymphocytes (%) (Auto) 13% (24-48) 20% (24-48) Monocytes (%) (Auto) 12% (0-9) 10% (0-9) Eosinophils (%) (Auto) 5% (0-3) 4% (0-3) Basophils (%) (Auto) 1% (0-3) 1% (0-3) Neutrophils # (Auto) 6.8x10^3uL (1.8-7.7) 5.5x10^3uL (1.8-7.7) Lymphocytes # (Auto) 1.2x10^3/uL (1.0-4.8) 1.7x10^3/uL (1.0-4.8) Monocytes # (Auto) 1.1x10^3/uL (0.0-1.1) 0.9x10^3/uL (0.0-1.1) Eosinophils # (Auto) 0.4x10^3/uL (0.0-0.7) 0.3x10^3/uL (0.0-0.7) Basophils # (Auto) 0.1x10^3/uL (0.0-0.2) 0.1x10^3/uL (0.0-0.2) Sodium Level 142mmol/L (136-145) 146mmol/L (136-145) Potassium Level 4.0mmol/L (3.5-5.1) 3.9mmol/L (3.5-5.1) Chloride Level 105mmol/L (98-107) 106mmol/L (98-107) Carbon Dioxide Level 28mmol/L (21-32) 30mmol/L (21-32) Anion Gap 9 (6-14) 10 (6-14) Blood Urea Nitrogen 18mg/dL (8-26) 19mg/dL (8-26) Creatinine 1.1mg/dL (0.7-1.3) 1.0mg/dL (0.7-1.3) Estimated GFR (Cockcroft-Gault) 63.8 71.2 Glucose Level 102mg/dL (70-99) 86mg/dL (70-99) Calcium Level 9.1mg/dL (8.5-10.1) 8.5mg/dL (8.5-10.1) Magnesium Level 2.2mg/dL (1.8-2.4) Laboratory Tests Test 07/13/16 03:25 White Blood Count 8.4x10^3/uL (4.0-11.0) Red Blood Count 3.86x10^6/uL (4.30-5.70) Hemoglobin 12.1g/dL (13.0-17.5) Hematocrit 36.3% (39.0-53.0) Mean Corpuscular Volume 94fL (79-100) Mean Corpuscular Hemoglobin 31pg (25-35) Mean Corpuscular Hemoglobin Concent 33g/dL (31-37) Red Cell Distribution Width 15.2% (11.5-14.5) Platelet Count 285x10^3/uL (140-400) Neutrophils (%) (Auto) 65% (31-73) Lymphocytes (%) (Auto) 20% (24-48) Monocytes (%) (Auto) 10% (0-9) Eosinophils (%) (Auto) 4% (0-3) Basophils (%) (Auto) 1% (0-3) Neutrophils # (Auto) 5.5x10^3uL (1.8-7.7) Lymphocytes # (Auto) 1.7x10^3/uL (1.0-4.8) Monocytes # (Auto) 0.9x10^3/uL (0.0-1.1) Eosinophils # (Auto) 0.3x10^3/uL (0.0-0.7) Basophils # (Auto) 0.1x10^3/uL (0.0-0.2) Sodium Level 146mmol/L (136-145) Potassium Level 3.9mmol/L (3.5-5.1) Chloride Level 106mmol/L (98-107) Carbon Dioxide Level 30mmol/L (21-32) Anion Gap 10 (6-14) Blood Urea Nitrogen 19mg/dL (8-26) Creatinine 1.0mg/dL (0.7-1.3) Estimated GFR (Cockcroft-Gault) 71.2 Glucose Level 86mg/dL (70-99) Calcium Level 8.5mg/dL (8.5-10.1) Microbiology 07/08/16 Blood Culture - Preliminary, Resulted NO GROWTH AFTER 4 DAYS 07/08/16 Urine Culture - Final, Complete 07/08/16 Urine Culture Result 1 (JULIET) - Final, Complete Medications Current Medications Vancomycin HCl (Vanco Per Pharmacy) 1 each PRN DAILY PRN MC SEE COMMENTS Last administered on 07/09/16 14:10; Start 07/08/16 at 20:30; Stop 07/09/16 at 17:10 ; Status DC Piperacillin Sod/ Tazobactam Sod 1 each 1 each PRN DAILY PRN MC SEE COMMENTS; Start 07/08/16 at 20:30; Stop 07/09/16 at 16:57; Status DC Sodium Chloride 500 ml @ 500 mls/hr 1X ONCE IV Last administered on 21:22; Start 07/08/16 at 20:45; Stop 07/08/16 at 21:44; Status DC Piperacillin Sod/ Tazobactam Sod 3.375 gm/Sodium Chloride 50 ml @ 100 mls/hr 1X ONCE IV Last administered on 07/08/16 21:00; Start 07/08/16 at 21:00; Stop 07/09/16 at 15:38; Status DC Vancomycin HCl/ Sodium Chloride (Iv Sodium Chloride 0.9% 500ml Bag) 500 ml @ 250 mls/hr 1X ONCE IV Last administered on 07/08/16 21:00; Start 07/08/16 at 21:00; Stop 07/09/16 at 15:38; Status DC Ondansetron HCl (Zofran) 4 mg PRN Q8HRS PRN IV NAUSEA/VOMITING; Start 07/08/16 at 23:00; Stop 07/08/16 at 23:15; Status DC Morphine Sulfate 2 mg 2 mg PRN Q2HR PRN IV SEVERE PAIN; Start 07/08/16 at 23:00 ; Stop 07/09/16 at 22:59; Status DC Sodium Chloride (Iv Sodium Chloride 0.9% 1000ml Bag) 1,000 ml @ 50 mls/hr Q20H IV Last administered on 07/09/16 03:09; Start 07/08/16 at 22:59; Stop at 22:58; Status DC Acetaminophen 650 mg 650 mg PRN Q4HRS PRN PO FEVER; Start 07/08/16 at 23:00; Stop 07/09/16 at 11:33; Status DC Piperacillin Sod/ Tazobactam Sod 3.375 gm/Sodium Chloride 50 ml @ 100 mls/hr Q6HRS IV Last administered on 07/09/16 12:34; Start 07/09/16 at 06:00; Stop at 15:38; Status DC Vancomycin HCl/ Sodium Chloride (Iv Sodium Chloride 0.9% 250ml) 250 ml @ 167 mls/hr Q24H IV ; Start 07/09/16 at 21:00; Stop 07/09/16 at 21:00; Status DC Vancomycin HCl 1 each 1X ONCE MC ; Start 07/10/16 at 20:30; Stop 07/10/16 at 20 :30; Status DC Acetaminophen (Tylenol) 325 mg PRN Q6HRS PRN PO MILD PAIN / TEMP Last administered on 07/11/16 10:44; Start 07/09/16 at 09:30 Acetaminophen/ Hydrocodone Bitart (Lortab 5/325) 1 tab PRN Q6HRS PRN PO MODERATE TO SEVERE PAIN; Start 07/09/16 at 09:30; Stop 07/09/16 at 14:08; Status DC Hydralazine HCl (Apresoline) 10 mg PRN Q4HRS PRN IVP ELEVATED BP, SEE COMMENTS ; Start 07/09/16 at 09:30; Stop 07/09/16 at 14:08; Status DC Ondansetron HCl (Zofran) 4 mg PRN Q8HRS PRN IV NAUSEA/VOMITING; Start 07/09/16 at 09:30 Albuterol Sulfate (Ventolin Neb Soln) 2.5 mg PRN Q4HRS PRN NEB SHORTNESS OF BREATH; Start 07/09/16 at 09:30 Cyclobenzaprine HCl (Flexeril) 5 mg PRN Q6HRS PRN PO MUSCLE SPASMS Last administered on 07/10/16 13:24; Start 07/09/16 at 11:30; Stop 07/11/16 at 09:30 ; Status DC Amlodipine Besylate (Norvasc) 5 mg DAILY PO ; Start 07/09/16 at 12:00; Status Cancel Metoprolol Tartrate (Lopressor) 25 mg DAILY PO Last administered on 07/10/16 09:53; Start 07/09/16 at 17:00; Stop 07/10/16 at 14:08; Status DC Acetaminophen (Tylenol) 325 mg PRN Q6HRS PRN PO MILD PAIN / TEMP; Start at 11:30; Stop 07/09/16 at 11:35; Status DC Acetaminophen/ Hydrocodone Bitart (Lortab 5/325) 1 tab PRN Q6HRS PRN PO MODERATE TO SEVERE PAIN Last administered on 07/11/16 09:03; Start 07/09/16 at 11:30 Hydralazine HCl (Apresoline) 10 mg PRN Q4HRS PRN IVP ELEVATED BP, SEE COMMENTS ; Start 07/09/16 at 11:30 Ondansetron HCl (Zofran) 4 mg PRN Q8HRS PRN IV NAUSEA/VOMITING; Start 07/09/16 at 11:30; Stop 07/09/16 at 11:35; Status DC Albuterol Sulfate (Ventolin Neb Soln) 2.5 mg PRN Q4HRS PRN NEB SHORTNESS OF BREATH; Start 07/09/16 at 11:30; Stop 07/09/16 at 11:36; Status DC Amlodipine Besylate (Norvasc) 5 mg DAILY PO Last administered on 07/13/16 08: 52; Start 07/09/16 at 16:00 Amoxicillin/ Clavulanate Potassium (Augmentin 875/ 125mg) 1 tab BID PO Last administered on 07/11/16 09:02; Start 07/09/16 at 21:00; Stop 07/11/16 at 14:02 ; Status DC Enoxaparin Sodium (Lovenox 40mg Syringe) 40 mg QHS SQ Last administered on 07/12 21:03; Start 07/09/16 at 21:00 Acetaminophen (Tylenol) 600 mg PRN Q6HRS PRN PO MILD PAIN / TEMP; Start at 16:00; Stop 07/11/16 at 14:38; Status DC Alprazolam (Xanax) 0.25 mg PRN Q8HRS PRN PO ANXIETY / AGITATION; Start at 16:00 Vitamin D (Vitamin D3) 1,000 unit DAILY PO Last administered on 07/13/16 08:52 ; Start 07/10/16 at 09:00 Docusate Sodium (Colace) 100 mg BID PO Last administered on 07/13/16 08:51; Start 07/09/16 at 21:00 Escitalopram Oxalate (Lexapro) 10 mg DAILY PO Last administered on 07/13/16 08 :51; Start 07/10/16 at 09:00 Famotidine (Pepcid) 20 mg BID PO Last administered on 07/11/16 09:02; Start at 21:00; Stop 07/11/16 at 14:02; Status DC Sertraline HCl (Zoloft) 50 mg HS PO Last administered on 07/12/16 21:04; Start 07/09/16 at 21:00 Tamsulosin HCl (Flomax) 0.4 mg QHS PO Last administered on 07/12/16 21:03; Start 07/10/16 at 21:00 Donepezil HCl (Aricept) 10 mg BID PO Last administered on 07/13/16 08:51; Start 07/09/16 at 21:00 Non-Formulary Medication 100 mg BID PO ; Start 07/09/16 at 21:00; Stop 07/09/16 at 21:00; Status DC Lactobacillus Acidophilus (Bacid, Apple-Bid) 1 tab QHS PO Last administered on 21:00; Start 07/10/16 at 21:00 Non-Formulary Medication 3 mg QHS PO ; Start 07/09/16 at 21:00; Stop 07/09/16 at 21:00; Status DC Memantine (Namenda) 10 mg BID PO Last administered on 07/13/16 08:51; Start at 21:00 Potassium Chloride (Klor-Con) 10 meq [id number] PO Last administered on 08:52; Start 07/10/16 at 08:00 Triamcinolone Acetonide 1 alaina 1 alaina BID TP Last administered on 07/13/16 09:00 ; Start 07/09/16 at 21:00 Sodium Chloride (Iv Sodium Chloride 0.9% 1000ml Bag) 1,000 ml @ 1,000 mls/hr 1X ONCE IV Last administered on 07/10/16 09:53; Start 07/10/16 at 09:45; Stop 07/10/16 at 10:44; Status DC Metoprolol Tartrate (Lopressor) 25 mg BID PO Last administered on 07/11/16 09: 03; Start 07/10/16 at 21:00; Stop 07/11/16 at 10:41; Status DC Aspirin (Ecotrin) 81 mg [id number] PO Last administered on 07/13/16 08:52; Start 07/10/16 at 15:00 Digoxin (Lanoxin) 250 mcg 1X ONCE IV Last administered on 07/10/16 18:22; Start 07/10/16 at 17:30; Stop 07/10/16 at 17:33; Status DC Cyclobenzaprine HCl (Flexeril) 5 mg Q6HRS PO Last administered on 07/12/16 17: 35; Start 07/11/16 at 09:30; Stop 07/12/16 at 18:00; Status DC Ketorolac Tromethamine (Toradol) 30 mg 1X ONCE IV Last administered on 10:44; Start 07/11/16 at 09:30; Stop 07/11/16 at 09:31; Status DC Metoprolol Tartrate 50 mg 50 mg BID PO ; Start 07/11/16 at 21:00; Stop 07/11/16 at 21:00; Status DC Piperacillin Sod/ Tazobactam Sod/ Sodium Chloride (Zosyn/Iv Sodium Chloride 0.9 % 50ml) 50 ml @ 100 mls/hr Q6HRS IV Last administered on 07/13/16 05:23; Start 07/11/16 at 15:00 Piperacillin Sod/ Tazobactam Sod (Zosyn Per Pharmacy) 1 each PRN DAILY PRN MC SEE COMMENTS; Start 07/11/16 at 14:00 Metoprolol Tartrate (Lopressor) 5 mg Q6HRS IVP Last administered on 07/13/16 00:08; Start 07/11/16 at 18:00; Stop 07/13/16 at 09:16; Status DC Famotidine 20 mg 20 mg QHS IVP Last administered on 07/12/16 21:04; Start at 21:00 Amino Acids/ Electrolytes (Clinimix E 2.75%-5% Solution) 2,000 ml @ 80 mls/hr Q24H IV Last administered on 07/12/16 16:24; Start 07/11/16 at 14:30 Acetaminophen (Tylenol) 650 mg PRN Q6HRS PRN PO MILD PAIN / TEMP; Start at 14:45 Metoprolol Tartrate (Lopressor) 50 mg BID PO ; Start 07/13/16 at 10:00 Active Scripts Active Reported Zoloft (Sertraline Hcl) 50 Mg Tablet 50 Mg PO HS Xanax (Alprazolam) 0.25 Mg Tablet 0.25 Mg PO PRN Q8HRS PRN Vitamin D3 (Cholecalciferol (Vitamin D3)) 1,000 Unit Tablet 1,000 Unit PO DAILY Acetaminophen 325 Mg Tablet 600 Mg PO PRN Q6HRS PRN Triamcinolone Acetonide 80 Gm Oint...g. 80 Gm TP BID Tamsulosin Hcl 0.4 Mg Cap.er.24h 0.4 Mg PO DAILY Potassium Chloride 10 Meq Capsule.er 10 Meq PO DAILY Namenda Xr (Memantine Hcl) 28 Mg Cap.spr.24 28 Mg PO DAILY Melatonin 3 Mg Tablet 3 Mg PO QHS Escitalopram Oxalate 10 Mg Tablet 10 Mg PO DAILY Famotidine 20 Mg Tablet 20 Mg PO BID Doxycycline Monohydrate 100 Mg Capsule 100 Mg PO BID Donepezil Hcl 23 Mg Tablet 23 Mg PO DAILY Colace (Docusate Sodium) 100 Mg Capsule 100 Mg PO BID Acidophilus Lactobacillus (Lactobacillus Acidophilus) 1 Each Capsule 1 Each PO HS Metoprolol Tartrate 25 Mg Tablet 1 Tab PO DAILY Amlodipine Besylate 5 Mg Tablet 5 Mg PO DAILY Vitals/I & O Vital Sign - Last 24 Hours 07/12/16 07/12/16 07/12/16 07/12/16 11:50 15:00 17:42 19:05 Temp 98.2 98.6 98.2 98.6 Pulse 110 82 82 110 Resp 18 B/P 117/67 126/54 126/54 122/49 Pulse Ox 91 97 O2 Delivery Room Air Room Air 07/12/16 07/12/16 07/13/16 07/13/16 20:00 23:05 00:08 03:05 Temp 98.8 98.8 98.8 98.8 Pulse 98 98 48 Resp 18 B/P 118/48 118/48 132/70 Pulse Ox 97 95 O2 Delivery Room Air Room Air Room Air 07/13/16 07/13/16 07/13/16 07/13/16 05:21 07:00 08:52 10:44 Temp 97.5 97.7 97.5 97.7 Pulse 48 111 111 128 Resp 18 B/P 130/52 130/52 130/77 Pulse Ox 96 94 O2 Delivery Room Air Room Air Intake and Output 07/12/16 07/12/16 07/13/16 15:00 23:00 07:00 Intake Total 480 ml Balance 480 ml NAVNEET CRAWFORD MD Jul 13, 2016 11:44
--- NOTE | 2016-07-13 12:14 | PDOC ---
PROGRESS NOTES Assessment Problems Medical Problems: (1) Pneumonia Status: Acute (2) Tachycardia Status: Acute Musculoskeletal neck pain without radiculopathy or myelopathy. Cervical degenerative changes Polyarthralgias with sedimentation rate 105. He feels better after the Toradol shot. Consider polymyalgia rheumatica He also has bilateral pleural effusions, worse on the right, that if infectious could cause the elevated sed rate Plan Asked nurse to check on rheumatology consult. Physical therapy Discussed with patient's [id number] . Subjective Very little pain today, he says Objective Vital Signs Date Time Temp Pulse Resp B/P Pulse Ox O2 Delivery O2 Flow Rate FiO2 07/13/16 10:44 97.7 128 18 130/77 94 Room Air 97.7 Intake and Output 07/13/16 07:00 Intake Total 480 ml Balance 480 ml Intake Oral 480 ml # Voids 8 PHYSICAL EXAM Alert. Follows commands, more verbal, oriented only to person Neck range of motion better PERRL. EOMI. CN: no focal findings. Muscle tone: normal. Muscle strength: 4/5, less splinting due to pain DTR: 1+ Plantar reflex: flexor Gait: not examined in bed. Sensory exam: no abnormal findings. No cerebellar signs elicited. Review of Relevant I have reviewed the following items donald (where applicable) has been applied. Labs Laboratory Tests Test 07/12/16 09:04 07/13/16 03:25 White Blood Count 9.7x10^3/uL (4.0-11.0) 8.4x10^3/uL (4.0-11.0) Red Blood Count 3.68x10^6/uL (4.30-5.70) 3.86x10^6/uL (4.30-5.70) Hemoglobin 11.4g/dL (13.0-17.5) 12.1g/dL (13.0-17.5) Hematocrit 34.7% (39.0-53.0) 36.3% (39.0-53.0) Mean Corpuscular Volume 94fL (79-100) 94fL (79-100) Mean Corpuscular Hemoglobin 31pg (25-35) 31pg (25-35) Mean Corpuscular Hemoglobin Concent 33g/dL (31-37) 33g/dL (31-37) Red Cell Distribution Width 15.5% (11.5-14.5) 15.2% (11.5-14.5) Platelet Count 246x10^3/uL (140-400) 285x10^3/uL (140-400) Neutrophils (%) (Auto) 70% (31-73) 65% (31-73) Lymphocytes (%) (Auto) 13% (24-48) 20% (24-48) Monocytes (%) (Auto) 12% (0-9) 10% (0-9) Eosinophils (%) (Auto) 5% (0-3) 4% (0-3) Basophils (%) (Auto) 1% (0-3) 1% (0-3) Neutrophils # (Auto) 6.8x10^3uL (1.8-7.7) 5.5x10^3uL (1.8-7.7) Lymphocytes # (Auto) 1.2x10^3/uL (1.0-4.8) 1.7x10^3/uL (1.0-4.8) Monocytes # (Auto) 1.1x10^3/uL (0.0-1.1) 0.9x10^3/uL (0.0-1.1) Eosinophils # (Auto) 0.4x10^3/uL (0.0-0.7) 0.3x10^3/uL (0.0-0.7) Basophils # (Auto) 0.1x10^3/uL (0.0-0.2) 0.1x10^3/uL (0.0-0.2) Sodium Level 142mmol/L (136-145) 146mmol/L (136-145) Potassium Level 4.0mmol/L (3.5-5.1) 3.9mmol/L (3.5-5.1) Chloride Level 105mmol/L (98-107) 106mmol/L (98-107) Carbon Dioxide Level 28mmol/L (21-32) 30mmol/L (21-32) Anion Gap 9 (6-14) 10 (6-14) Blood Urea Nitrogen 18mg/dL (8-26) 19mg/dL (8-26) Creatinine 1.1mg/dL (0.7-1.3) 1.0mg/dL (0.7-1.3) Estimated GFR (Cockcroft-Gault) 63.8 71.2 Glucose Level 102mg/dL (70-99) 86mg/dL (70-99) Calcium Level 9.1mg/dL (8.5-10.1) 8.5mg/dL (8.5-10.1) Magnesium Level 2.2mg/dL (1.8-2.4) Laboratory Tests Test 07/13/16 03:25 White Blood Count 8.4x10^3/uL (4.0-11.0) Red Blood Count 3.86x10^6/uL (4.30-5.70) Hemoglobin 12.1g/dL (13.0-17.5) Hematocrit 36.3% (39.0-53.0) Mean Corpuscular Volume 94fL (79-100) Mean Corpuscular Hemoglobin 31pg (25-35) Mean Corpuscular Hemoglobin Concent 33g/dL (31-37) Red Cell Distribution Width 15.2% (11.5-14.5) Platelet Count 285x10^3/uL (140-400) Neutrophils (%) (Auto) 65% (31-73) Lymphocytes (%) (Auto) 20% (24-48) Monocytes (%) (Auto) 10% (0-9) Eosinophils (%) (Auto) 4% (0-3) Basophils (%) (Auto) 1% (0-3) Neutrophils # (Auto) 5.5x10^3uL (1.8-7.7) Lymphocytes # (Auto) 1.7x10^3/uL (1.0-4.8) Monocytes # (Auto) 0.9x10^3/uL (0.0-1.1) Eosinophils # (Auto) 0.3x10^3/uL (0.0-0.7) Basophils # (Auto) 0.1x10^3/uL (0.0-0.2) Sodium Level 146mmol/L (136-145) Potassium Level 3.9mmol/L (3.5-5.1) Chloride Level 106mmol/L (98-107) Carbon Dioxide Level 30mmol/L (21-32) Anion Gap 10 (6-14) Blood Urea Nitrogen 19mg/dL (8-26) Creatinine 1.0mg/dL (0.7-1.3) Estimated GFR (Cockcroft-Gault) 71.2 Glucose Level 86mg/dL (70-99) Calcium Level 8.5mg/dL (8.5-10.1) Microbiology 07/08/16 Blood Culture - Preliminary, Resulted NO GROWTH AFTER 4 DAYS 07/08/16 Urine Culture - Final, Complete 07/08/16 Urine Culture Result 1 (JULIET) - Final, Complete Medications Current Medications Vancomycin HCl (Vanco Per Pharmacy) 1 each PRN DAILY PRN MC SEE COMMENTS Last administered on 07/09/16 14:10; Start 07/08/16 at 20:30; Stop 07/09/16 at 17:10 ; Status DC Piperacillin Sod/ Tazobactam Sod 1 each 1 each PRN DAILY PRN MC SEE COMMENTS; Start 07/08/16 at 20:30; Stop 07/09/16 at 16:57; Status DC Sodium Chloride 500 ml @ 500 mls/hr 1X ONCE IV Last administered on 21:22; Start 07/08/16 at 20:45; Stop 07/08/16 at 21:44; Status DC Piperacillin Sod/ Tazobactam Sod 3.375 gm/Sodium Chloride 50 ml @ 100 mls/hr 1X ONCE IV Last administered on 07/08/16 21:00; Start 07/08/16 at 21:00; Stop 07/09/16 at 15:38; Status DC Vancomycin HCl/ Sodium Chloride (Iv Sodium Chloride 0.9% 500ml Bag) 500 ml @ 250 mls/hr 1X ONCE IV Last administered on 07/08/16 21:00; Start 07/08/16 at 21:00; Stop 07/09/16 at 15:38; Status DC Ondansetron HCl (Zofran) 4 mg PRN Q8HRS PRN IV NAUSEA/VOMITING; Start 07/08/16 at 23:00; Stop 07/08/16 at 23:15; Status DC Morphine Sulfate 2 mg 2 mg PRN Q2HR PRN IV SEVERE PAIN; Start 07/08/16 at 23:00 ; Stop 07/09/16 at 22:59; Status DC Sodium Chloride (Iv Sodium Chloride 0.9% 1000ml Bag) 1,000 ml @ 50 mls/hr Q20H IV Last administered on 07/09/16 03:09; Start 07/08/16 at 22:59; Stop at 22:58; Status DC Acetaminophen 650 mg 650 mg PRN Q4HRS PRN PO FEVER; Start 07/08/16 at 23:00; Stop 07/09/16 at 11:33; Status DC Piperacillin Sod/ Tazobactam Sod 3.375 gm/Sodium Chloride 50 ml @ 100 mls/hr Q6HRS IV Last administered on 07/09/16 12:34; Start 07/09/16 at 06:00; Stop at 15:38; Status DC Vancomycin HCl/ Sodium Chloride (Iv Sodium Chloride 0.9% 250ml) 250 ml @ 167 mls/hr Q24H IV ; Start 07/09/16 at 21:00; Stop 07/09/16 at 21:00; Status DC Vancomycin HCl 1 each 1X ONCE MC ; Start 07/10/16 at 20:30; Stop 07/10/16 at 20 :30; Status DC Acetaminophen (Tylenol) 325 mg PRN Q6HRS PRN PO MILD PAIN / TEMP Last administered on 07/11/16 10:44; Start 07/09/16 at 09:30 Acetaminophen/ Hydrocodone Bitart (Lortab 5/325) 1 tab PRN Q6HRS PRN PO MODERATE TO SEVERE PAIN; Start 07/09/16 at 09:30; Stop 07/09/16 at 14:08; Status DC Hydralazine HCl (Apresoline) 10 mg PRN Q4HRS PRN IVP ELEVATED BP, SEE COMMENTS ; Start 07/09/16 at 09:30; Stop 07/09/16 at 14:08; Status DC Ondansetron HCl (Zofran) 4 mg PRN Q8HRS PRN IV NAUSEA/VOMITING; Start 07/09/16 at 09:30 Albuterol Sulfate (Ventolin Neb Soln) 2.5 mg PRN Q4HRS PRN NEB SHORTNESS OF BREATH; Start 07/09/16 at 09:30 Cyclobenzaprine HCl (Flexeril) 5 mg PRN Q6HRS PRN PO MUSCLE SPASMS Last administered on 07/10/16 13:24; Start 07/09/16 at 11:30; Stop 07/11/16 at 09:30 ; Status DC Amlodipine Besylate (Norvasc) 5 mg DAILY PO ; Start 07/09/16 at 12:00; Status Cancel Metoprolol Tartrate (Lopressor) 25 mg DAILY PO Last administered on 07/10/16 09:53; Start 07/09/16 at 17:00; Stop 07/10/16 at 14:08; Status DC Acetaminophen (Tylenol) 325 mg PRN Q6HRS PRN PO MILD PAIN / TEMP; Start at 11:30; Stop 07/09/16 at 11:35; Status DC Acetaminophen/ Hydrocodone Bitart (Lortab 5/325) 1 tab PRN Q6HRS PRN PO MODERATE TO SEVERE PAIN Last administered on 07/11/16 09:03; Start 07/09/16 at 11:30 Hydralazine HCl (Apresoline) 10 mg PRN Q4HRS PRN IVP ELEVATED BP, SEE COMMENTS ; Start 07/09/16 at 11:30 Ondansetron HCl (Zofran) 4 mg PRN Q8HRS PRN IV NAUSEA/VOMITING; Start 07/09/16 at 11:30; Stop 07/09/16 at 11:35; Status DC Albuterol Sulfate (Ventolin Neb Soln) 2.5 mg PRN Q4HRS PRN NEB SHORTNESS OF BREATH; Start 07/09/16 at 11:30; Stop 07/09/16 at 11:36; Status DC Amlodipine Besylate (Norvasc) 5 mg DAILY PO Last administered on 07/13/16 08: 52; Start 07/09/16 at 16:00 Amoxicillin/ Clavulanate Potassium (Augmentin 875/ 125mg) 1 tab BID PO Last administered on 07/11/16 09:02; Start 07/09/16 at 21:00; Stop 07/11/16 at 14:02 ; Status DC Enoxaparin Sodium (Lovenox 40mg Syringe) 40 mg QHS SQ Last administered on 07/12 21:03; Start 07/09/16 at 21:00 Acetaminophen (Tylenol) 600 mg PRN Q6HRS PRN PO MILD PAIN / TEMP; Start at 16:00; Stop 07/11/16 at 14:38; Status DC Alprazolam (Xanax) 0.25 mg PRN Q8HRS PRN PO ANXIETY / AGITATION; Start at 16:00 Vitamin D (Vitamin D3) 1,000 unit DAILY PO Last administered on 07/13/16 08:52 ; Start 07/10/16 at 09:00 Docusate Sodium (Colace) 100 mg BID PO Last administered on 07/13/16 08:51; Start 07/09/16 at 21:00 Escitalopram Oxalate (Lexapro) 10 mg DAILY PO Last administered on 07/13/16 08 :51; Start 07/10/16 at 09:00 Famotidine (Pepcid) 20 mg BID PO Last administered on 07/11/16 09:02; Start at 21:00; Stop 07/11/16 at 14:02; Status DC Sertraline HCl (Zoloft) 50 mg HS PO Last administered on 07/12/16 21:04; Start 07/09/16 at 21:00 Tamsulosin HCl (Flomax) 0.4 mg QHS PO Last administered on 07/12/16 21:03; Start 07/10/16 at 21:00 Donepezil HCl (Aricept) 10 mg BID PO Last administered on 07/13/16 08:51; Start 07/09/16 at 21:00 Non-Formulary Medication 100 mg BID PO ; Start 07/09/16 at 21:00; Stop 07/09/16 at 21:00; Status DC Lactobacillus Acidophilus (Bacid, Apple-Bid) 1 tab QHS PO Last administered on 21:00; Start 07/10/16 at 21:00 Non-Formulary Medication 3 mg QHS PO ; Start 07/09/16 at 21:00; Stop 07/09/16 at 21:00; Status DC Memantine (Namenda) 10 mg BID PO Last administered on 07/13/16 08:51; Start at 21:00 Potassium Chloride (Klor-Con) 10 meq [id number] PO Last administered on 08:52; Start 07/10/16 at 08:00 Triamcinolone Acetonide 1 alaina 1 alaina BID TP Last administered on 07/13/16 09:00 ; Start 07/09/16 at 21:00 Sodium Chloride (Iv Sodium Chloride 0.9% 1000ml Bag) 1,000 ml @ 1,000 mls/hr 1X ONCE IV Last administered on 07/10/16 09:53; Start 07/10/16 at 09:45; Stop 07/10/16 at 10:44; Status DC Metoprolol Tartrate (Lopressor) 25 mg BID PO Last administered on 07/11/16 09: 03; Start 07/10/16 at 21:00; Stop 07/11/16 at 10:41; Status DC Aspirin (Ecotrin) 81 mg DAILYWBKFT PO Last administered on 07/13/16 08:52; Start 07/10/16 at 15:00 Digoxin (Lanoxin) 250 mcg 1X ONCE IV Last administered on 07/10/16 18:22; Start 07/10/16 at 17:30; Stop 07/10/16 at 17:33; Status DC Cyclobenzaprine HCl (Flexeril) 5 mg Q6HRS PO Last administered on 07/12/16 17: 35; Start 07/11/16 at 09:30; Stop 07/12/16 at 18:00; Status DC Ketorolac Tromethamine (Toradol) 30 mg 1X ONCE IV Last administered on 10:44; Start 07/11/16 at 09:30; Stop 07/11/16 at 09:31; Status DC Metoprolol Tartrate 50 mg 50 mg BID PO ; Start 07/11/16 at 21:00; Stop 07/11/16 at 21:00; Status DC Piperacillin Sod/ Tazobactam Sod/ Sodium Chloride (Zosyn/Iv Sodium Chloride 0.9 % 50ml) 50 ml @ 100 mls/hr Q6HRS IV Last administered on 07/13/16 05:23; Start 07/11/16 at 15:00 Piperacillin Sod/ Tazobactam Sod (Zosyn Per Pharmacy) 1 each PRN DAILY PRN MC SEE COMMENTS; Start 07/11/16 at 14:00 Metoprolol Tartrate (Lopressor) 5 mg Q6HRS IVP Last administered on 07/13/16 00:08; Start 07/11/16 at 18:00; Stop 07/13/16 at 09:16; Status DC Famotidine 20 mg 20 mg QHS IVP Last administered on 07/12/16 21:04; Start at 21:00; Stop 07/13/16 at 11:42; Status DC Amino Acids/ Electrolytes (Clinimix E 2.75%-5% Solution) 2,000 ml @ 80 mls/hr Q24H IV Last administered on 07/12/16 16:24; Start 07/11/16 at 14:30; Stop at 11:45; Status DC Acetaminophen (Tylenol) 650 mg PRN Q6HRS PRN PO MILD PAIN / TEMP; Start at 14:45 Metoprolol Tartrate (Lopressor) 50 mg BID PO ; Start 07/13/16 at 10:00 Famotidine (Pepcid) 20 mg QHS PO ; Start 07/13/16 at 21:00 Active Scripts Active Reported Zoloft (Sertraline Hcl) 50 Mg Tablet 50 Mg PO HS Xanax (Alprazolam) 0.25 Mg Tablet 0.25 Mg PO PRN Q8HRS PRN Vitamin D3 (Cholecalciferol (Vitamin D3)) 1,000 Unit Tablet 1,000 Unit PO DAILY Acetaminophen 325 Mg Tablet 600 Mg PO PRN Q6HRS PRN Triamcinolone Acetonide 80 Gm Oint...g. 80 Gm TP BID Tamsulosin Hcl 0.4 Mg Cap.er.24h 0.4 Mg PO DAILY Potassium Chloride 10 Meq Capsule.er 10 Meq PO DAILY Namenda Xr (Memantine Hcl) 28 Mg Cap.spr.24 28 Mg PO DAILY Melatonin 3 Mg Tablet 3 Mg PO QHS Escitalopram Oxalate 10 Mg Tablet 10 Mg PO DAILY Famotidine 20 Mg Tablet 20 Mg PO BID Doxycycline Monohydrate 100 Mg Capsule 100 Mg PO BID Donepezil Hcl 23 Mg Tablet 23 Mg PO DAILY Colace (Docusate Sodium) 100 Mg Capsule 100 Mg PO BID Acidophilus Lactobacillus (Lactobacillus Acidophilus) 1 Each Capsule 1 Each PO HS Metoprolol Tartrate 25 Mg Tablet 1 Tab PO DAILY Amlodipine Besylate 5 Mg Tablet 5 Mg PO DAILY Vitals/I & O Vital Sign - Last 24 Hours 07/12/16 07/12/16 07/12/16 07/12/16 15:00 17:42 19:05 20:00 Temp 98.2 98.6 98.2 98.6 Pulse 82 82 110 Resp 18 18 B/P 126/54 126/54 122/49 Pulse Ox 91 97 O2 Delivery Room Air Room Air Room Air 07/12/16 07/13/16 07/13/16 07/13/16 23:05 00:08 03:05 05:21 Temp 98.8 98.8 98.8 98.8 Pulse 98 98 48 48 Resp 18 B/P 118/48 118/48 132/70 Pulse Ox 97 95 O2 Delivery Room Air Room Air 07/13/16 07/13/16 07/13/16 07:00 08:52 10:44 Temp 97.5 97.7 97.5 97.7 Pulse 111 111 128 Resp 18 B/P 130/52 130/52 130/77 Pulse Ox 96 94 O2 Delivery Room Air Room Air Intake and Output 07/12/16 07/12/16 07/13/16 15:00 23:00 07:00 Intake Total 480 ml Balance 480 ml RONY DURÁN MD Jul 13, 2016 12:14
[2016-07-13] MEDS: METOPROLOL TART IMMED RELEASE 50 MG TABLET PO SCH ×2 (12:59→22:26)
[2016-07-13 14:59] VITALS: BP 170/65
[2016-07-13 19:05] VITALS: BP 123/80
[2016-07-13] MEDS: SERTRALINE 50 MG TABLET. PO SCH (22:24)
[2016-07-13] MEDS: LACTOBACILLUS ACIDOPH & BULGAR 1 TABLET. PO SCH (22:25)
[2016-07-13] MEDS: FAMOTIDINE 20 MG TABLET. PO SCH (22:25)
[2016-07-13] MEDS: TAMSULOSIN 0.4 MG CAP.ER.24H. PO SCH (22:25)
[2016-07-13] MEDS: ENOXAPARIN 40 MG/0.4 ML SYRINGE. SQ SCH (22:25)
[2016-07-13 23:05] VITALS: BP 144/72
--- NOTE | 2016-07-14 00:12 | CONS ---
DATE OF CONSULTATION: 07/13/2016 REQUESTING PHYSICIAN: Dr. Neff. REASON FOR CONSULTATION: Joint pain and elevated sed rate. HISTORY OF PRESENT ILLNESS: The patient is an 86-year-old male with dementia, was admitted because of the abnormal mental status changes. The patient is unable to give the history, so history was obtained by reviewing the chart as well as from [id number]. The patient has severe neck pain and some shoulder pain and tenderness. On further evaluation, he was found to have an elevated sed rate. So for further evaluation and management, rheumatology consultation has been requested. PAST MEDICAL HISTORY: Dementia, tachycardia, possible congestive heart failure, Alzheimer's, atrial fibrillation. PAST SURGICAL HISTORY: None. SOCIAL HISTORY: No current smoking or alcohol abuse. FAMILY HISTORY: Negative for any autoimmune disease. ALLERGIES: No known drug allergies. MEDICATIONS: I have reviewed the list of medication as per chart. REVIEW OF SYSTEMS: Unable to obtain. PHYSICAL EXAMINATION: GENERAL: He is awake and alert, not oriented. VITAL SIGNS: Reveal temperature 97.7, pulse 128, respirations 18 and blood pressure 130/77. HEENT: Normocephalic, atraumatic head. No oral ulcerations. NECK: Supple. HEART: S1, S2 regular. LUNGS: Clear to auscultation anteriorly. EXTREMITIES: No pitting edema. MUSCULOSKELETAL: Did not reveal any joint tenderness, synovitis or swelling. I have reviewed his laboratory test results and his sed rate is elevated. His x-ray of the neck revealed osteoarthritic changes. ASSESSMENT: 1. Cervicalgia. 2. Polyarthralgia. 3. Elevated sed rate. 4. Right pleural effusion. 5. 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 Although the patient is unable to give any history, on clinical examination, I did not find any joint tenderness or any muscle tenderness. So, in my opinion, he does not have any polymyalgia rheumatica or inflammatory arthritis. His elevated sed rate could be just due to the right pleural effusion. So I would recommend to continue any symptomatic analgesic for osteoarthritis and no need of prednisone or any other DMARD. Thank you for allowing me to participate in his care. If any question, please do not hesitate to contact me. CARLY SUAREZ MD DR: PAOLA/daniel JOB#: [id number] / [id number]
[2016-07-14 03:05] VITALS: BP 140/74
[2016-07-14 05:11] LABS: BASO # 0.1 x10^3/uL (0.0-0.2); BASO % 1 % (0-3); EOS % 4 % (0-3); HEMATOCRIT 33.1 % (39.0-53.0); HEMOGLOBIN 10.9 g/dL (13.0-17.5); LYMPH # 1.7 x10^3/uL (1.0-4.8); LYMPH % 21 % (24-48); MEAN CORPUSCULAR HEMOGLOBIN 31 pg (25-35); MEAN CORPUSCULAR HGB CONC 33 g/dL (31-37); MEAN CORPUSCULAR VOLUME 94 fL (79-100); MONO % 12 % (0-9); NEUT % 62 % (31-73); PLATELET COUNT 334 x10^3/uL (140-400); RED BLOOD COUNT 3.52 x10^6/uL (4.30-5.70); RED CELL DISTRIBUTION WIDTH 15.4 % (11.5-14.5); WHITE BLOOD COUNT 8.2 x10^3/uL (4.0-11.0)
[2016-07-14 05:44] LABS: CALCIUM 9.1 mg/dL (8.5-10.1); CREATININE 1.1 mg/dL (0.7-1.3); GFR 63.8; POTASSIUM 3.6 mmol/L (3.5-5.1)
[2016-07-14] MEDS: PIPERACILLIN/TAZOBACTAM 3.375 GM in IV NORMAL SALINE 50ML 50 ML IV SCH (06:01)
[2016-07-14 07:00] VITALS: BP 130/64
[2016-07-14] MEDS: DOCUSATE SODIUM 100 MG CAPSULE PO SCH ×2 (08:41→21:19)
[2016-07-14] MEDS: TRIAMCINOLONE ACETONIDE 0.1% TOPICAL CREAM 15GM TUBE. TP SCH ×2 (08:41→21:18)
[2016-07-14] MEDS: ESCITALOPRAM 10 MG TABLET. PO SCH (08:41)
[2016-07-14] MEDS: METOPROLOL TART IMMED RELEASE 50 MG TABLET PO SCH ×2 (08:41→21:19)
[2016-07-14] MEDS: DONEPEZIL HCL 10 MG TABLET. PO SCH ×2 (08:41→21:19)
[2016-07-14] MEDS: POTASSIUM CHLORIDE 10 MEQ TABLET.ER. PO SCH (08:41)
[2016-07-14] MEDS: CHOLECALCIFEROL (VITAMIN D3) 1,000 UNIT TABLET PO SCH (08:41)
[2016-07-14] MEDS: ASPIRIN ENTERIC COATED 81 MG TABLET.DR. PO SCH (08:41)
[2016-07-14] MEDS: MEMANTINE 10 MG TABLET. PO SCH ×2 (08:41→21:19)
[2016-07-14] MEDS: AMLODIPINE BESYLATE 5 MG TABLET PO SCH (08:42)
--- NOTE | 2016-07-14 10:08 | PDOC ---
PULMONARY PROGRESS NOTES Subjective more awake no soa Vitals Vital Signs Date Time Temp Pulse Resp B/P Pulse Ox O2 Delivery O2 Flow Rate FiO2 07/14/16 08:42 108 130/64 07/14/16 08:00 Room Air 07/14/16 07:00 97.6 20 95 97.6 Lungs: Other (right side decreased bs) Cardiovascular: S1, S2 Abdomen: Soft Extremities: No Edema Skin: Warm Labs Laboratory Tests Test 07/13/16 03:25 07/14/16 04:30 White Blood Count 8.4x10^3/uL (4.0-11.0) 8.2x10^3/uL (4.0-11.0) Red Blood Count 3.86x10^6/uL (4.30-5.70) 3.52x10^6/uL (4.30-5.70) Hemoglobin 12.1g/dL (13.0-17.5) 10.9g/dL (13.0-17.5) Hematocrit 36.3% (39.0-53.0) 33.1% (39.0-53.0) Mean Corpuscular Volume 94fL (79-100) 94fL (79-100) Mean Corpuscular Hemoglobin 31pg (25-35) 31pg (25-35) Mean Corpuscular Hemoglobin Concent 33g/dL (31-37) 33g/dL (31-37) Red Cell Distribution Width 15.2% (11.5-14.5) 15.4% (11.5-14.5) Platelet Count 285x10^3/uL (140-400) 334x10^3/uL (140-400) Neutrophils (%) (Auto) 65% (31-73) 62% (31-73) Lymphocytes (%) (Auto) 20% (24-48) 21% (24-48) Monocytes (%) (Auto) 10% (0-9) 12% (0-9) Eosinophils (%) (Auto) 4% (0-3) 4% (0-3) Basophils (%) (Auto) 1% (0-3) 1% (0-3) Neutrophils # (Auto) 5.5x10^3uL (1.8-7.7) 5.1x10^3uL (1.8-7.7) Lymphocytes # (Auto) 1.7x10^3/uL (1.0-4.8) 1.7x10^3/uL (1.0-4.8) Monocytes # (Auto) 0.9x10^3/uL (0.0-1.1) 1.0x10^3/uL (0.0-1.1) Eosinophils # (Auto) 0.3x10^3/uL (0.0-0.7) 0.3x10^3/uL (0.0-0.7) Basophils # (Auto) 0.1x10^3/uL (0.0-0.2) 0.1x10^3/uL (0.0-0.2) Sodium Level 146mmol/L (136-145) 144mmol/L (136-145) Potassium Level 3.9mmol/L (3.5-5.1) 3.6mmol/L (3.5-5.1) Chloride Level 106mmol/L (98-107) 107mmol/L (98-107) Carbon Dioxide Level 30mmol/L (21-32) 28mmol/L (21-32) Anion Gap 10 (6-14) 9 (6-14) Blood Urea Nitrogen 19mg/dL (8-26) 16mg/dL (8-26) Creatinine 1.0mg/dL (0.7-1.3) 1.1mg/dL (0.7-1.3) Estimated GFR (Cockcroft-Gault) 71.2 63.8 Glucose Level 86mg/dL (70-99) 83mg/dL (70-99) Calcium Level 8.5mg/dL (8.5-10.1) 9.1mg/dL (8.5-10.1) Laboratory Tests Test 07/14/16 04:30 White Blood Count 8.2x10^3/uL (4.0-11.0) Red Blood Count 3.52x10^6/uL (4.30-5.70) Hemoglobin 10.9g/dL (13.0-17.5) Hematocrit 33.1% (39.0-53.0) Mean Corpuscular Volume 94fL (79-100) Mean Corpuscular Hemoglobin 31pg (25-35) Mean Corpuscular Hemoglobin Concent 33g/dL (31-37) Red Cell Distribution Width 15.4% (11.5-14.5) Platelet Count 334x10^3/uL (140-400) Neutrophils (%) (Auto) 62% (31-73) Lymphocytes (%) (Auto) 21% (24-48) Monocytes (%) (Auto) 12% (0-9) Eosinophils (%) (Auto) 4% (0-3) Basophils (%) (Auto) 1% (0-3) Neutrophils # (Auto) 5.1x10^3uL (1.8-7.7) Lymphocytes # (Auto) 1.7x10^3/uL (1.0-4.8) Monocytes # (Auto) 1.0x10^3/uL (0.0-1.1) Eosinophils # (Auto) 0.3x10^3/uL (0.0-0.7) Basophils # (Auto) 0.1x10^3/uL (0.0-0.2) Sodium Level 144mmol/L (136-145) Potassium Level 3.6mmol/L (3.5-5.1) Chloride Level 107mmol/L (98-107) Carbon Dioxide Level 28mmol/L (21-32) Anion Gap 9 (6-14) Blood Urea Nitrogen 16mg/dL (8-26) Creatinine 1.1mg/dL (0.7-1.3) Estimated GFR (Cockcroft-Gault) 63.8 Glucose Level 83mg/dL (70-99) Calcium Level 9.1mg/dL (8.5-10.1) Medications Active Scripts Medications Dose Route/Sig Days Date Category Zoloft (Sertraline Hcl) 50 Mg Tablet 50 Mg PO HS 07/09/16 Reported Xanax (Alprazolam) 0.25 Mg Tablet 0.25 Mg PO PRN Q8HRS PRN 07/09/16 Reported Vitamin D3 (Cholecalciferol (Vitamin D3)) 1,000 Unit Tablet 1,000 Unit PO DAILY 07/09/16 Reported Acetaminophen 325 Mg Tablet 600 Mg PO PRN Q6HRS PRN 07/09/16 Reported Triamcinolone Acetonide 80 Gm Oint...g. 80 Gm TP BID 07/09/16 Reported Tamsulosin Hcl 0.4 Mg Cap.er.24h 0.4 Mg PO DAILY 07/09/16 Reported Potassium Chloride 10 Meq Capsule.er 10 Meq PO DAILY 07/09/16 Reported Namenda Xr (Memantine Hcl) 28 Mg Cap.spr.24 28 Mg PO DAILY 07/09/16 Reported Melatonin 3 Mg Tablet 3 Mg PO QHS 07/09/16 Reported Escitalopram Oxalate 10 Mg Tablet 10 Mg PO DAILY 07/09/16 Reported Famotidine 20 Mg Tablet 20 Mg PO BID 07/09/16 Reported Doxycycline Monohydrate 100 Mg Capsule 100 Mg PO BID 07/09/16 Reported Donepezil Hcl 23 Mg Tablet 23 Mg PO DAILY 07/09/16 Reported Colace (Docusate Sodium) 100 Mg Capsule 100 Mg PO BID 07/09/16 Reported Acidophilus Lactobacillus (Lactobacillus Acidophilus) 1 Each Capsule 1 Each PO HS 07/09/16 Reported Metoprolol Tartrate 25 Mg Tablet 1 Tab PO DAILY 07/09/16 Reported Amlodipine Besylate 5 Mg Tablet 5 Mg PO DAILY 07/09/16 Reported Impression . 1. Abnormal CT of the chest revealing moderate-large right-sided effusion. 2. Metabolic/toxic encephalopathy. 3. Possible pneumonia with parapneumonic effusion. 4. Alzheimer's disease. 5. Atrial fibrillation with rapid ventricular response. 6. Dysphagia. Plan . d/w daughter in Law today. she wishes to proceed with palliative care /possible hospice they do not want a thoracentesis continue the same for now antibiotics In case of any respiratory distress, prn morphine YADI ESTRELLA MD Jul 14, 2016 10:08
[2016-07-14] MEDS ORDERED: ASPI81TA9 PO (10:40)
[2016-07-14] MEDS ORDERED: METO50TA2 PO (10:40)
[2016-07-14] MEDS ORDERED: AMOX1TAB11 PO (10:40)
[2016-07-14 11:00] VITALS: BP 124/61
--- NOTE | 2016-07-14 11:11 | PDOC2 ---
PALLIATIVE CARE Palliative Care Note Palliative Care Patient remains alert today. Confused. Spoke with Lashonda daughter in -law. Decision has been made to return to [facility] with Hospice. [facility] No thoracentesis. Spoke with Ailyn FARMER. She will be able to accommodate patient at facility with hospice. DME: Hospital Bed, Broda Chair, oxygen. Plan Discharge today. SANDI OLVERA Jul 14, 2016 11:11
--- NOTE | 2016-07-14 12:05 | PDOC3 ---
Discharge Summary [facility] Date of Admission: Jul 08, 2016 Discharge Date: Jul 14, 2016 Admitting Diagnosis 1. Severe dehydration. 2. Decreased oral intake, failure to thrive. 3. Hypertension. 4. Atrial fibrillation with RVR 5. Neck pain possible due to spasm 6. Dementia severe 7. dysphagia, 2/2 dementia likely 8. neck DJD 9. right pleural effusion with possible asp PNA 10. AMS, likely 2/2 fluctuating of dementia with possible pna Problems: Final Diagnosis CONSULTS pulm neuro card Brief Hospital Course Mr. Shen is a 86 old M, severe dementia, was sent form snf for ams. pt also had tachycardia with afib, fever, and rt pleural effusion. Pt improved with hydration, passed swallow eval now, afebrile, back to his baseline with is aaox1 to person, follow commands. HR better with metoprolol 50mg bid. pulm not recommend thoracentesis now. dc to snf with hospice,cont augmentin for 4 days, metoprolol 50mg bid. CT showed neck DJD, no intervention, rheum consulted, not rheum problem. dc t lizzy 35min Physical Exam aaox1 to person only. pleasant, follow commands General: Alert Heart: Normal S1, Normal S2, Other (irregular) Lungs: Other (right side decreased bs) Abdomen: Normal bowel sounds, Soft Extremities: No clubbing, No cyanosis Problems: Disposition SNF CONDITION AT DISCHARGE: Improved Diet regular Scheduled Amlodipine Besylate (Amlodipine Besylate) 5 MG PO DAILY (Reported) Amoxicillin/Potassium Clav (Amox Tr-K Clv 875-125 Mg Tab) 1 TAB PO BID Aspirin (Aspirin Ec) 81 MG PO DAILYWBKFT Cholecalciferol (Vitamin D3) (Vitamin D3) 1,000 UNIT PO DAILY (Reported) Docusate Sodium (Colace) 100 MG PO BID (Reported) Donepezil Hcl (Donepezil Hcl) 23 MG PO DAILY (Reported) Escitalopram Oxalate (Escitalopram Oxalate) 10 MG PO DAILY (Reported) Famotidine (Famotidine) 20 MG PO BID (Reported) Lactobacillus Acidophilus (Acidophilus Lactobacillus) 1 EACH PO HS (Reported) Melatonin (Melatonin) 3 MG PO QHS (Reported) Memantine Hcl (Namenda Xr) 28 MG PO DAILY (Reported) Metoprolol Tartrate (Metoprolol Tartrate) 50 MG PO BID Potassium Chloride (Potassium Chloride) 10 MEQ PO DAILY (Reported) Sertraline Hcl (Zoloft) 50 MG PO HS (Reported) Tamsulosin Hcl (Tamsulosin Hcl) 0.4 MG PO DAILY (Reported) Triamcinolone Acetonide (Triamcinolone Acetonide) 80 GM TP BID (Reported) Scheduled PRN Acetaminophen (Acetaminophen) 600 MG PO PRN Q6HRS PRN PRN MILD PAIN / TEMP ( Reported) Alprazolam (Xanax) 0.25 MG PO PRN Q8HRS PRN PRN ANXIETY / AGITATION (Reported) Discontinued Medications Doxycycline Monohydrate (Doxycycline Monohydrate) 100 MG PO BID (Reported) Metoprolol Tartrate (Metoprolol Tartrate) 1 TAB PO DAILY (Reported) Follow Up hospice NAVNEET CRAWFORD MD Jul 14, 2016 12:05
[2016-07-14 15:05] VITALS: BP 116/64
[2016-07-14 19:00] VITALS: BP 126/73
[2016-07-14] MEDS: ENOXAPARIN 40 MG/0.4 ML SYRINGE. SQ SCH (21:18)
[2016-07-14] MEDS: SERTRALINE 50 MG TABLET. PO SCH (21:19)
[2016-07-14] MEDS: AMOXICILLIN/K CLAV 875/125MG TABLET. PO SCH (21:19)
[2016-07-14] MEDS: TAMSULOSIN 0.4 MG CAP.ER.24H. PO SCH (21:19)
[2016-07-14] MEDS: LACTOBACILLUS ACIDOPH & BULGAR 1 TABLET. PO SCH (21:19)
[2016-07-14] MEDS: FAMOTIDINE 20 MG TABLET. PO SCH (21:19)
[2016-07-14 23:00] VITALS: BP 119/72
[2016-07-15 03:00] VITALS: BP 119/61
[2016-07-15 06:25] LABS: BASO # 0.1 x10^3/uL (0.0-0.2); BASO % 1 % (0-3); EOS % 5 % (0-3); HEMATOCRIT 34.6 % (39.0-53.0); HEMOGLOBIN 11.4 g/dL (13.0-17.5); LYMPH # 1.7 x10^3/uL (1.0-4.8); LYMPH % 23 % (24-48); MEAN CORPUSCULAR HEMOGLOBIN 31 pg (25-35); MEAN CORPUSCULAR HGB CONC 33 g/dL (31-37); MEAN CORPUSCULAR VOLUME 96 fL (79-100); MONO % 12 % (0-9); NEUT % 59 % (31-73); PLATELET COUNT 343 x10^3/uL (140-400); RED BLOOD COUNT 3.62 x10^6/uL (4.30-5.70); WHITE BLOOD COUNT 7.3 x10^3/uL (4.0-11.0)
[2016-07-15 06:50] LABS: CALCIUM 8.9 mg/dL (8.5-10.1); GFR 71.2; POTASSIUM 3.8 mmol/L (3.5-5.1)
[2016-07-15 07:00] VITALS: BP 134/74
[2016-07-15] MEDS: METOPROLOL TART IMMED RELEASE 50 MG TABLET PO SCH (08:26)
[2016-07-15] MEDS: AMOXICILLIN/K CLAV 875/125MG TABLET. PO SCH (08:26)
[2016-07-15] MEDS: ASPIRIN ENTERIC COATED 81 MG TABLET.DR. PO SCH (08:26)
[2016-07-15] MEDS: DOCUSATE SODIUM 100 MG CAPSULE PO SCH (08:27)
[2016-07-15] MEDS: CHOLECALCIFEROL (VITAMIN D3) 1,000 UNIT TABLET PO SCH (08:27)
[2016-07-15] MEDS: MEMANTINE 10 MG TABLET. PO SCH (08:27)
[2016-07-15] MEDS: AMLODIPINE BESYLATE 5 MG TABLET PO SCH (08:27)
[2016-07-15] MEDS: ESCITALOPRAM 10 MG TABLET. PO SCH (08:27)
[2016-07-15] MEDS: POTASSIUM CHLORIDE 10 MEQ TABLET.ER. PO SCH (08:27)
[2016-07-15] MEDS: DONEPEZIL HCL 10 MG TABLET. PO SCH (08:27)
[2016-07-15] MEDS: TRIAMCINOLONE ACETONIDE 0.1% TOPICAL CREAM 15GM TUBE. TP SCH (08:29)
--- NOTE | 2016-07-15 10:10 | PDOC ---
PROGRESS NOTES Assessment Problems Medical Problems: (1) Pneumonia Status: Acute (2) Tachycardia Status: Acute Musculoskeletal neck pain without radiculopathy or myelopathy. Cervical degenerative changes Polyarthralgias with sedimentation rate 105. He yoni better after the Toradol shot. He also has bilateral pleural effusions, worse on the right, that if infectious could cause the elevated sed rate Alzheimer's Plan Rheumatology consult appreciated. Physical therapy Note plans for hospice care Discussed with patient's [id number] Objective Vital Signs Date Time Temp Pulse Resp B/P Pulse Ox O2 Delivery O2 Flow Rate FiO2 07/15/16 08:27 74 134/74 07/15/16 08:00 Room Air 07/15/16 07:00 97.4 16 96 97.4 Intake and Output 07/15/16 07:00 Intake Total 320 ml Output Total 525 ml Balance -205 ml Intake Oral 320 ml Stool Total 400 ml Drainage Total 125 ml # Voids 7 PHYSICAL EXAM Alert. Follows commands, denies pain, oriented only to person Neck range of motion better PERRL. EOMI. CN: no focal findings. Muscle tone: normal. Muscle strength: 4/5, less splinting due to pain DTR: 1+ Plantar reflex: flexor Gait: not examined in bed. Sensory exam: no abnormal findings. No cerebellar signs elicited. Review of Relevant I have reviewed the following items donald (where applicable) has been applied. Labs Laboratory Tests Test 07/14/16 04:30 07/15/16 06:05 White Blood Count 8.2x10^3/uL (4.0-11.0) 7.3x10^3/uL (4.0-11.0) Red Blood Count 3.52x10^6/uL (4.30-5.70) 3.62x10^6/uL (4.30-5.70) Hemoglobin 10.9g/dL (13.0-17.5) 11.4g/dL (13.0-17.5) Hematocrit 33.1% (39.0-53.0) 34.6% (39.0-53.0) Mean Corpuscular Volume 94fL (79-100) 96fL (79-100) Mean Corpuscular Hemoglobin 31pg (25-35) 31pg (25-35) Mean Corpuscular Hemoglobin Concent 33g/dL (31-37) 33g/dL (31-37) Red Cell Distribution Width 15.4% (11.5-14.5) 15.0% (11.5-14.5) Platelet Count 334x10^3/uL (140-400) 343x10^3/uL (140-400) Neutrophils (%) (Auto) 62% (31-73) 59% (31-73) Lymphocytes (%) (Auto) 21% (24-48) 23% (24-48) Monocytes (%) (Auto) 12% (0-9) 12% (0-9) Eosinophils (%) (Auto) 4% (0-3) 5% (0-3) Basophils (%) (Auto) 1% (0-3) 1% (0-3) Neutrophils # (Auto) 5.1x10^3uL (1.8-7.7) 4.3x10^3uL (1.8-7.7) Lymphocytes # (Auto) 1.7x10^3/uL (1.0-4.8) 1.7x10^3/uL (1.0-4.8) Monocytes # (Auto) 1.0x10^3/uL (0.0-1.1) 0.8x10^3/uL (0.0-1.1) Eosinophils # (Auto) 0.3x10^3/uL (0.0-0.7) 0.4x10^3/uL (0.0-0.7) Basophils # (Auto) 0.1x10^3/uL (0.0-0.2) 0.1x10^3/uL (0.0-0.2) Sodium Level 144mmol/L (136-145) 143mmol/L (136-145) Potassium Level 3.6mmol/L (3.5-5.1) 3.8mmol/L (3.5-5.1) Chloride Level 107mmol/L (98-107) 107mmol/L (98-107) Carbon Dioxide Level 28mmol/L (21-32) 29mmol/L (21-32) Anion Gap 9 (6-14) 7 (6-14) Blood Urea Nitrogen 16mg/dL (8-26) 14mg/dL (8-26) Creatinine 1.1mg/dL (0.7-1.3) 1.0mg/dL (0.7-1.3) Estimated GFR (Cockcroft-Gault) 63.8 71.2 Glucose Level 83mg/dL (70-99) 85mg/dL (70-99) Calcium Level 9.1mg/dL (8.5-10.1) 8.9mg/dL (8.5-10.1) Laboratory Tests Test 07/15/16 06:05 White Blood Count 7.3x10^3/uL (4.0-11.0) Red Blood Count 3.62x10^6/uL (4.30-5.70) Hemoglobin 11.4g/dL (13.0-17.5) Hematocrit 34.6% (39.0-53.0) Mean Corpuscular Volume 96fL (79-100) Mean Corpuscular Hemoglobin 31pg (25-35) Mean Corpuscular Hemoglobin Concent 33g/dL (31-37) Red Cell Distribution Width 15.0% (11.5-14.5) Platelet Count 343x10^3/uL (140-400) Neutrophils (%) (Auto) 59% (31-73) Lymphocytes (%) (Auto) 23% (24-48) Monocytes (%) (Auto) 12% (0-9) Eosinophils (%) (Auto) 5% (0-3) Basophils (%) (Auto) 1% (0-3) Neutrophils # (Auto) 4.3x10^3uL (1.8-7.7) Lymphocytes # (Auto) 1.7x10^3/uL (1.0-4.8) Monocytes # (Auto) 0.8x10^3/uL (0.0-1.1) Eosinophils # (Auto) 0.4x10^3/uL (0.0-0.7) Basophils # (Auto) 0.1x10^3/uL (0.0-0.2) Sodium Level 143mmol/L (136-145) Potassium Level 3.8mmol/L (3.5-5.1) Chloride Level 107mmol/L (98-107) Carbon Dioxide Level 29mmol/L (21-32) Anion Gap 7 (6-14) Blood Urea Nitrogen 14mg/dL (8-26) Creatinine 1.0mg/dL (0.7-1.3) Estimated GFR (Cockcroft-Gault) 71.2 Glucose Level 85mg/dL (70-99) Calcium Level 8.9mg/dL (8.5-10.1) Microbiology 07/08/16 Blood Culture - Final, Complete NO GROWTH AFTER 5 DAYS 07/08/16 Urine Culture - Final, Complete 07/08/16 Urine Culture Result 1 (JULIET) - Final, Complete Medications Current Medications Vancomycin HCl (Vanco Per Pharmacy) 1 each PRN DAILY PRN MC SEE COMMENTS Last administered on 07/09/16 14:10; Start 07/08/16 at 20:30; Stop 07/09/16 at 17:10 ; Status DC Piperacillin Sod/ Tazobactam Sod 1 each 1 each PRN DAILY PRN MC SEE COMMENTS; Start 07/08/16 at 20:30; Stop 07/09/16 at 16:57; Status DC Sodium Chloride 500 ml @ 500 mls/hr 1X ONCE IV Last administered on 21:22; Start 07/08/16 at 20:45; Stop 07/08/16 at 21:44; Status DC Piperacillin Sod/ Tazobactam Sod 3.375 gm/Sodium Chloride 50 ml @ 100 mls/hr 1X ONCE IV Last administered on 07/08/16 21:00; Start 07/08/16 at 21:00; Stop 07/09/16 at 15:38; Status DC Vancomycin HCl/ Sodium Chloride (Iv Sodium Chloride 0.9% 500ml Bag) 500 ml @ 250 mls/hr 1X ONCE IV Last administered on 07/08/16 21:00; Start 07/08/16 at 21:00; Stop 07/09/16 at 15:38; Status DC Ondansetron HCl (Zofran) 4 mg PRN Q8HRS PRN IV NAUSEA/VOMITING; Start 07/08/16 at 23:00; Stop 07/08/16 at 23:15; Status DC Morphine Sulfate 2 mg 2 mg PRN Q2HR PRN IV SEVERE PAIN; Start 07/08/16 at 23:00 ; Stop 07/09/16 at 22:59; Status DC Sodium Chloride (Iv Sodium Chloride 0.9% 1000ml Bag) 1,000 ml @ 50 mls/hr Q20H IV Last administered on 07/09/16 03:09; Start 07/08/16 at 22:59; Stop at 22:58; Status DC Acetaminophen 650 mg 650 mg PRN Q4HRS PRN PO FEVER; Start 07/08/16 at 23:00; Stop 07/09/16 at 11:33; Status DC Piperacillin Sod/ Tazobactam Sod 3.375 gm/Sodium Chloride 50 ml @ 100 mls/hr Q6HRS IV Last administered on 07/09/16 12:34; Start 07/09/16 at 06:00; Stop at 15:38; Status DC Vancomycin HCl/ Sodium Chloride (Iv Sodium Chloride 0.9% 250ml) 250 ml @ 167 mls/hr Q24H IV ; Start 07/09/16 at 21:00; Stop 07/09/16 at 21:00; Status DC Vancomycin HCl 1 each 1X ONCE MC ; Start 07/10/16 at 20:30; Stop 07/10/16 at 20 :30; Status DC Acetaminophen (Tylenol) 325 mg PRN Q6HRS PRN PO MILD PAIN / TEMP Last administered on 07/11/16t 10:44; Start 07/09/16 at 09:30 Acetaminophen/ Hydrocodone Bitart (Lortab 5/325) 1 tab PRN Q6HRS PRN PO MODERATE TO SEVERE PAIN; Start 07/09/16 at 09:30; Stop 07/09/16 at 14:08; Status DC Hydralazine HCl (Apresoline) 10 mg PRN Q4HRS PRN IVP ELEVATED BP, SEE COMMENTS ; Start 07/09/16 at 09:30; Stop 07/09/16 at 14:08; Status DC Ondansetron HCl (Zofran) 4 mg PRN Q8HRS PRN IV NAUSEA/VOMITING; Start 07/09/16 at 09:30 Albuterol Sulfate (Ventolin Neb Soln) 2.5 mg PRN Q4HRS PRN NEB SHORTNESS OF BREATH; Start 07/09/16 at 09:30 Cyclobenzaprine HCl (Flexeril) 5 mg PRN Q6HRS PRN PO MUSCLE SPASMS Last administered on 07/10/16 13:24; Start 07/09/16 at 11:30; Stop 07/11/16 at 09:30 ; Status DC Amlodipine Besylate (Norvasc) 5 mg DAILY PO ; Start 07/09/16 at 12:00; Status Cancel Metoprolol Tartrate (Lopressor) 25 mg DAILY PO Last administered on 07/10/16 09:53; Start 07/09/16 at 17:00; Stop 07/10/16 at 14:08; Status DC Acetaminophen (Tylenol) 325 mg PRN Q6HRS PRN PO MILD PAIN / TEMP; Start at 11:30; Stop 07/09/16 at 11:35; Status DC Acetaminophen/ Hydrocodone Bitart (Lortab 5/325) 1 tab PRN Q6HRS PRN PO MODERATE TO SEVERE PAIN Last administered on 07/11/16 09:03; Start 07/09/16 at 11:30 Hydralazine HCl (Apresoline) 10 mg PRN Q4HRS PRN IVP ELEVATED BP, SEE COMMENTS ; Start 07/09/16 at 11:30 Ondansetron HCl (Zofran) 4 mg PRN Q8HRS PRN IV NAUSEA/VOMITING; Start 07/09/16 at 11:30; Stop 07/09/16 at 11:35; Status DC Albuterol Sulfate (Ventolin Neb Soln) 2.5 mg PRN Q4HRS PRN NEB SHORTNESS OF BREATH; Start 07/09/16 at 11:30; Stop 07/09/16 at 11:36; Status DC Amlodipine Besylate (Norvasc) 5 mg DAILY PO Last administered on 07/15/16 08: 27; Start 07/09/16 at 16:00 Amoxicillin/ Clavulanate Potassium (Augmentin 875/ 125mg) 1 tab BID PO Last administered on 07/11/16 09:02; Start 07/09/16 at 21:00; Stop 07/11/16 at 14:02 ; Status DC Enoxaparin Sodium (Lovenox 40mg Syringe) 40 mg QHS SQ Last administered on 07/14 21:18; Start 07/09/16 at 21:00 Acetaminophen (Tylenol) 600 mg PRN Q6HRS PRN PO MILD PAIN / TEMP; Start at 16:00; Stop 07/11/16 at 14:38; Status DC Alprazolam (Xanax) 0.25 mg PRN Q8HRS PRN PO ANXIETY / AGITATION Last administered on 07/13/16 14:38; Start 07/09/16 at 16:00 Vitamin D (Vitamin D3) 1,000 unit DAILY PO Last administered on 07/15/16 08:27 ; Start 07/10/16 at 09:00 Docusate Sodium (Colace) 100 mg BID PO Last administered on 07/15/16 08:27; Start 07/09/16 at 21:00 Escitalopram Oxalate (Lexapro) 10 mg DAILY PO Last administered on 07/15/16 08 :27; Start 07/10/16 at 09:00 Famotidine (Pepcid) 20 mg BID PO Last administered on 07/11/16 09:02; Start at 21:00; Stop 07/11/16 at 14:02; Status DC Sertraline HCl (Zoloft) 50 mg HS PO Last administered on 07/14/16 21:19; Start 07/09/16 at 21:00 Tamsulosin HCl (Flomax) 0.4 mg QHS PO Last administered on 07/14/16 21:19; Start 07/10/16 at 21:00 Donepezil HCl (Aricept) 10 mg BID PO Last administered on 07/15/16 08:27; Start 07/09/16 at 21:00 Non-Formulary Medication 100 mg BID PO ; Start 07/09/16 at 21:00; Stop 07/09/16 at 21:00; Status DC Lactobacillus Acidophilus (Bacid, Apple-Bid) 1 tab QHS PO Last administered on 21:19; Start 07/10/16 at 21:00 Non-Formulary Medication 3 mg QHS PO ; Start 07/09/16 at 21:00; Stop 07/09/16 at 21:00; Status DC Memantine (Namenda) 10 mg BID PO Last administered on 07/15/16 08:27; Start at 21:00 Potassium Chloride (Klor-Con) 10 meq DAILYWBKFT PO Last administered on 08:27; Start 07/10/16 at 08:00 Triamcinolone Acetonide 1 alaina 1 alaina BID TP Last administered on 07/15/16 08:29 ; Start 07/09/16 at 21:00 Sodium Chloride (Iv Sodium Chloride 0.9% 1000ml Bag) 1,000 ml @ 1,000 mls/hr 1X ONCE IV Last administered on 07/10/16 09:53; Start 07/10/16 at 09:45; Stop 07/10/16 at 10:44; Status DC Metoprolol Tartrate (Lopressor) 25 mg BID PO Last administered on 07/11/16 09: 03; Start 07/10/16 at 21:00; Stop 07/11/16 at 10:41; Status DC Aspirin (Ecotrin) 81 mg DAILYWBKFT PO Last administered on 07/15/16 08:26; Start 07/10/16 at 15:00 Digoxin (Lanoxin) 250 mcg 1X ONCE IV Last administered on 07/10/16 18:22; Start 07/10/16 at 17:30; Stop 07/10/16 at 17:33; Status DC Cyclobenzaprine HCl (Flexeril) 5 mg Q6HRS PO Last administered on 07/12/16 17: 35; Start 07/11/16 at 09:30; Stop 07/12/16 at 18:00; Status DC Ketorolac Tromethamine (Toradol) 30 mg 1X ONCE IV Last administered on 10:44; Start 07/11/16 at 09:30; Stop 07/11/16 at 09:31; Status DC Metoprolol Tartrate 50 mg 50 mg BID PO ; Start 07/11/16 at 21:00; Stop 07/11/16 at 21:00; Status DC Piperacillin Sod/ Tazobactam Sod/ Sodium Chloride (Zosyn/Iv Sodium Chloride 0.9 % 50ml) 50 ml @ 100 mls/hr Q6HRS IV Last administered on 07/14/16 06:01; Start 07/11/16 at 15:00; Stop 07/14/16 at 10:35; Status DC Piperacillin Sod/ Tazobactam Sod (Zosyn Per Pharmacy) 1 each PRN DAILY PRN MC SEE COMMENTS; Start 07/11/16 at 14:00; Stop 07/14/16 at 10:35; Status DC Metoprolol Tartrate (Lopressor) 5 mg Q6HRS IVP Last administered on 07/13/16 00:08; Start 07/11/16 at 18:00; Stop 07/13/16 at 09:16; Status DC Famotidine 20 mg 20 mg QHS IVP Last administered on 07/12/16 21:04; Start at 21:00; Stop 07/13/16 at 11:42; Status DC Amino Acids/ Electrolytes (Clinimix E 2.75%-5% Solution) 2,000 ml @ 80 mls/hr Q24H IV Last administered on 07/12/16 16:24; Start 07/11/16 at 14:30; Stop at 11:45; Status DC Acetaminophen (Tylenol) 650 mg PRN Q6HRS PRN PO MILD PAIN / TEMP; Start at 14:45 Metoprolol Tartrate (Lopressor) 50 mg BID PO Last administered on 07/15/16 08: 26; Start 07/13/16 at 10:00 Famotidine (Pepcid) 20 mg QHS PO Last administered on 07/14/16 21:19; Start at 21:00 Amoxicillin/ Clavulanate Potassium (Augmentin 875/ 125mg) 1 tab BID PO Last administered on 07/15/16 08:26; Start 07/14/16 at 21:00 Active Scripts Active Aspirin Ec (Aspirin) 81 Mg Tablet.dr 81 Mg PO DAILYWBKFT 30 Days Metoprolol Tartrate 50 Mg Tablet 50 Mg PO BID 30 Days Amox Tr-K Clv 875-125 Mg Tab (Amoxicillin/Potassium Clav) 1 Each Tablet 1 Tab PO BID 4 Days Reported Zoloft (Sertraline Hcl) 50 Mg Tablet 50 Mg PO HS Xanax (Alprazolam) 0.25 Mg Tablet 0.25 Mg PO PRN Q8HRS PRN Vitamin D3 (Cholecalciferol (Vitamin D3)) 1,000 Unit Tablet 1,000 Unit PO DAILY Acetaminophen 325 Mg Tablet 600 Mg PO PRN Q6HRS PRN Triamcinolone Acetonide 80 Gm Oint...g. 80 Gm TP BID Tamsulosin Hcl 0.4 Mg Cap.er.24h 0.4 Mg PO DAILY Potassium Chloride 10 Meq Capsule.er 10 Meq PO DAILY Namenda Xr (Memantine Hcl) 28 Mg Cap.spr.24 28 Mg PO DAILY Melatonin 3 Mg Tablet 3 Mg PO QHS Escitalopram Oxalate 10 Mg Tablet 10 Mg PO DAILY Famotidine 20 Mg Tablet 20 Mg PO BID Donepezil Hcl 23 Mg Tablet 23 Mg PO DAILY Colace (Docusate Sodium) 100 Mg Capsule 100 Mg PO BID Acidophilus Lactobacillus (Lactobacillus Acidophilus) 1 Each Capsule 1 Each PO HS Amlodipine Besylate 5 Mg Tablet 5 Mg PO DAILY Vitals/I & O Vital Sign - Last 24 Hours 07/14/16 07/14/16 07/14/16 07/14/16 11:00 15:05 19:00 20:00 Temp 97.5 97.4 97.1 97.5 97.4 97.1 Pulse 69 67 67 Resp 20 19 18 B/P 124/61 116/64 126/73 Pulse Ox 95 96 96 O2 Delivery Room Air Room Air Room Air Room Air 07/14/16 07/14/16 07/15/16 07/15/16 21:19 23:00 03:00 07:00 Temp 97.9 97.9 97.4 97.9 97.9 97.4 Pulse 67 66 65 74 Resp 18 18 16 B/P 126/73 119/72 119/61 134/74 Pulse Ox 97 93 96 O2 Delivery Room Air Room Air Room Air 07/15/16 07/15/16 07/15/16 08:00 08:26 08:27 Pulse 74 74 B/P 134/74 134/74 O2 Delivery Room Air Intake and Output 07/14/16 07/14/16 07/15/16 15:00 23:00 07:00 Intake Total 200 ml 120 ml Output Total 125 ml 400 ml Balance 75 ml 120 ml -400 ml RONY DURÁN MD Jul 15, 2016 10:10
--- NOTE | 2016-07-15 10:35 | PDOC3 ---
Discharge Summary [facility] Date of Admission: Jul 08, 2016 Discharge Date: Jul 15, 2016 Admitting Diagnosis 1. Severe dehydration. 2. Decreased oral intake, failure to thrive. 3. Hypertension. 4. Atrial fibrillation with RVR 5. Neck pain possible due to spasm 6. Dementia severe 7. dysphagia, 2/2 dementia likely 8. neck DJD 9. right pleural effusion with possible asp PNA 10. AMS, likely 2/2 fluctuating of dementia with metabolic encephalopathy 2/2 possible pna Problems: Final Diagnosis CONSULTS pulm neuro card Brief Hospital Course Brief Hospital Course Mr. Shen is a 86 old M, severe dementia, was sent form snf for ams. pt also had tachycardia with afib, fever, and rt pleural effusion. Pt improved with hydration, passed swallow eval now, afebrile, back to his baseline with is aaox1 to person, follow commands. HR better with metoprolol 50mg bid. pulm not recommend thoracentesis now. dc to snf with hospice but his daughter and his son would like to talk to a animal shelter worker before making the final decision,cont augmentin for 4 days, metoprolol 50mg bid. CT showed neck DJD, no intervention, rheum consulted, not rheum problem. dc t lizzy 35min Physical Exam aaox1 to person only. pleasant, follow commands General: Alert Heart: Normal S1, Normal S2, Other (irregular) Lungs: Other (right side decreased bs) Abdomen: Normal bowel sounds, Soft Extremities: No clubbing, No cyanosis Problems: Disposition SNF CONDITION AT DISCHARGE: Improved Problems: Disposition snf CONDITION AT DISCHARGE: Improved Diet regular Scheduled Amlodipine Besylate (Amlodipine Besylate) 5 MG PO DAILY (Reported) Amoxicillin/Potassium Clav (Amox Tr-K Clv 875-125 Mg Tab) 1 TAB PO BID Aspirin (Aspirin Ec) 81 MG PO DAILYWBKFT Cholecalciferol (Vitamin D3) (Vitamin D3) 1,000 UNIT PO DAILY (Reported) Docusate Sodium (Colace) 100 MG PO BID (Reported) Donepezil Hcl (Donepezil Hcl) 23 MG PO DAILY (Reported) Escitalopram Oxalate (Escitalopram Oxalate) 10 MG PO DAILY (Reported) Famotidine (Famotidine) 20 MG PO BID (Reported) Lactobacillus Acidophilus (Acidophilus Lactobacillus) 1 EACH PO HS (Reported) Melatonin (Melatonin) 3 MG PO QHS (Reported) Memantine Hcl (Namenda Xr) 28 MG PO DAILY (Reported) Metoprolol Tartrate (Metoprolol Tartrate) 50 MG PO BID Potassium Chloride (Potassium Chloride) 10 MEQ PO DAILY (Reported) Sertraline Hcl (Zoloft) 50 MG PO HS (Reported) Tamsulosin Hcl (Tamsulosin Hcl) 0.4 MG PO DAILY (Reported) Triamcinolone Acetonide (Triamcinolone Acetonide) 80 GM TP BID (Reported) Scheduled PRN Acetaminophen (Acetaminophen) 600 MG PO PRN Q6HRS PRN PRN MILD PAIN / TEMP ( Reported) Alprazolam (Xanax) 0.25 MG PO PRN Q8HRS PRN PRN ANXIETY / AGITATION (Reported) Discontinued Medications Doxycycline Monohydrate (Doxycycline Monohydrate) 100 MG PO BID (Reported) Metoprolol Tartrate (Metoprolol Tartrate) 1 TAB PO DAILY (Reported) Follow Up pcp in 2 weeks NAVNEET CRAWFORD MD Jul 15, 2016 10:35
[2016-07-15 10:59] VITALS: BP 135/57
[2016-07-15 14:34] VITALS: BP 120/69
== END 2016-07-15 14:50 | DRG 177 ==
LOC: ER 20:01 → 6 SOUTH 22:57
PROVIDERS: ADMIT Internal Medicine Hematology & Oncology; ATTEND Internal Medicine Hematology & Oncology
DX: J69.0 Pneumonitis due to inhalation of food and vomit (principal); G92 Toxic encephalopathy; R62.7 Adult failure to thrive; E86.0 Dehydration; F02.80 Dementia in other diseases classified elsewhere, unspecified severity, without behavioral disturbance, psychotic disturbance, mood disturbance, and anxiety; G30.9 Alzheimer's disease, unspecified; I48.0 Paroxysmal atrial fibrillation; I50.9 Heart failure, unspecified; I11.0 Hypertensive heart disease with heart failure; M47.812 Spondylosis without myelopathy or radiculopathy, cervical region; Z66 Do not resuscitate; Z82.49 Family history of ischemic heart disease and other diseases of the circulatory system; Z86.73 Personal history of transient ischemic attack (TIA), and cerebral infarction without residual deficits; Z51.5 Encounter for palliative care
CPT/HCPCS: 36415; 70450; 71010; 71250; 72125; 80048; 80053; 81001; 83605; 83735; 83880; 84443; 84484; 85027; 85651; 87040; 87086; 87641; 87804; 93005; 94250; 96374; 96375; J1160; J1650; J1885; J2543; J3370; J3490; J7030; J7040; S0028; 92526; 92610; 97530; 99285-25

== ENCOUNTER 2016-07-15 22:42 | Inpatient (IN) | payer MEDICARE ==
[~2016-07-15] VITALS: Ht 182.9 cm; Wt 83.5 kg
[~2016-07-15 22:42] MED LIST: ACET325T21 PO; ALPR0.25 PO; AMLO5TAB2 PO; AMOX1TAB11 PO; ASPI81TA9 PO; CHOL10003 PO; DOCU-27 PO; DONE23TA PO; DOXY100C14 PO; ESCI10TA PO; FAMO20TA5 PO; LACT1CAP24 PO; MELA3TAB PO; MEMA28CA PO; METO25TA4 PO; METO50TA2 PO; POTA10CA PO; SERT50TA PO; TAMS0.4C2 PO; TRIA80OI TP
[2016-07-16] LABS: BASO # 0.1 x10^3/uL (0.0-0.2); BASO % 1 % (0-3); EOS % 4 % (0-3); HEMATOCRIT 35.9 % (39.0-53.0); HEMOGLOBIN 11.7 g/dL (13.0-17.5); LYMPH # 1.4 x10^3/uL (1.0-4.8); LYMPH % 19 % (24-48); MEAN CORPUSCULAR HEMOGLOBIN 31 pg (25-35); MEAN CORPUSCULAR HGB CONC 33 g/dL (31-37); MEAN CORPUSCULAR VOLUME 96 fL (79-100); MONO % 10 % (0-9); NEUT % 66 % (31-73); PLATELET COUNT 382 x10^3/uL (140-400); RED BLOOD COUNT 3.74 x10^6/uL (4.30-5.70); RED CELL DISTRIBUTION WIDTH 15.1 % (11.5-14.5); WHITE BLOOD COUNT 7.5 x10^3/uL (4.0-11.0)
[2016-07-16 00:22] LABS: CALCIUM 9.1 mg/dL (8.5-10.1); GFR 71.2; POTASSIUM 3.8 mmol/L (3.5-5.1)
[2016-07-16] MEDS ORDERED: TETANUS AND DIPHTHERIA TOX/PF 0.5 ML DISP.SYRIN. VAX IM ONE (00:30)
[2016-07-16 00:34] LABS: ALBUMIN 2.4 g/dL (3.4-5.0); ALBUMIN/GLOBULIN RATIO 0.5 (1.0-1.7); TOTAL BILIRUBIN 0.5 mg/dL (0.2-1.0); TOTAL PROTEIN 7.2 g/dL (6.4-8.2)
[2016-07-16 01:10] LABS: INR 1.3 (0.8-1.1); PROTHROMBIN TIME PATIENT 15.6 SEC (11.7-14.0)
--- NOTE | 2016-07-16 01:11 | RAD ---
CT head without contrast: Reason for examination: Syncopal episode with fall. Comparison is made to previous study dated 07/08/2016. Axial images were obtained through the brain. No contrast was administered. Ventricular systems are prominent but symmetric. There is prominence of the cerebral sulci and fissures consistent with some generalized cerebral atrophy. There is encephalomalacia present in the frontal lobes bilaterally consistent with chronic infarcts which has not changed. There is also some decreased density in the right occipital lobe consistent with infarct with some encephalomalacia which is unchanged. No new evidence of infarct, mass or edema is seen. No abnormalities are seen in the orbits. The paranasal sinuses and mastoid air cells are clear. No acute abnormalities seen in the skull. Impression: Chronic infarcts with areas of encephalomalacia bilaterally in the frontal lobe and in the right parietal lobe without interval change. No acute process evident. CT cervical spine without contrast: Helical images were obtained through the cervical spine from skullbase through the thoracic apices. Reconstruction was performed in sagittal and coronal planes. The C1 ring is intact. The odontoid process appears to be intact and normally centered between the lateral masses of C1. The cervical vertebral bodies are normally aligned anteriorly and posteriorly. No acute fracture or subluxation is evident. There are however degenerative changes from C4 through T1 with some hypertrophic spurring and disc space narrowing. Prevertebral soft tissues are normal. There does appear to be mild stenosis of the central canal at the C5-6 and C6-7 disc levels. Impression: No acute abnormality evident in the cervical spine. Degenerative spondylosis with mild stenosis centrally at the C5-6 and C6-7 disc levels. Exposure: One or more of the following individualized dose reduction techniques were used for this examination: 1. Automated exposure control. 2. Adjustment of the mA and/or kV according to patient size. 3. Use of iterative reconstruction technique. Electronically signed by: Anh Escobar MD (Jul 16, 2016 01:09:41)
--- NOTE | 2016-07-16 01:18 | EKG ---
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
--- NOTE | 2016-07-16 01:49 | ED.ADGEN ---
Past Medical History Past Medical History: CHF, Dementia, Hypertension, Other Additional Past Medical Histor: tachycardia Past Surgical History: Other Additional Past Surgical Histo: unknown Alcohol Use: None Drug Use: None Adult General Chief Complaint Chief Complaint: MECHANICAL FALL HPI HPI Patient is a 86 year old man, history of severe dementia, atrial fibrillation with RVR, hypertension, who [facility], after admission for pneumonia, who presents emergency department via EMS after being found down at home. Patient does not recall the events leading up to his arrival. Concern for possible syncope based on report. Patient noted have a large abrasion over the right forehead. He is complaining of pain in his neck and his head. Denies any weakness numbness or tingling, any pain in his extremities. He is moving his arms and legs without difficulty. C- collar was placed by EMS en route to the ED. Patient was reportedly found by his granddaughter lying on the ground at his home. No additional information is provided at this time. No family is present in the ED. Review of Systems Review of Systems Constitutional: Denies fever or chills. [] Eyes: Denies change in visual acuity. [] HENT: Denies nasal congestion or sore throat. [] Respiratory: Denies cough or shortness of breath. [] Cardiovascular: Denies chest pain or edema. [] GI: Denies abdominal pain, nausea, vomiting, bloody stools or diarrhea. [] : Denies dysuria. [] Musculoskeletal: Denies back pain or joint pain. [] Integument: Denies rash. [] Neurologic: Denies focal weakness or sensory changes. [] Complaining of headache. Neck pain. Current Medications Current Medications Current Medications Medications (Trade) Dose Ordered Sig/Delta Start Time Stop Time Status Last Admin Dose Admin Tetanus/ Diphtheria Toxoids Adsorbed (Tenivac Syringe) 0.5 ml ONCE ONCE 07/16/16 00:30 07/16/16 00:31 DC Allergies Allergies Allergies Coded Allergies Type Severity Reaction Last Updated Verified No Known Drug Allergies 07/08/16 No Physical Exam Physical Exam Constitutional: Well developed, well nourished, no acute distress, non-toxic appearance. [] HENT: Normocephalic, abrasion noted on right forehead, no hemotympanum, no septal hematoma, bilateral external ears normal, oropharynx moist, no oral exudates, nose normal. [] Eyes: PERRLA, EOMI, conjunctiva normal, no discharge. [] Neck: C-collar in place, patient with no midline tenderness, step-offs or deformities, no stridor. Cardiovascular: Irregular, no murmur, S1, S2, no rubs or gallops. [] Lungs & Thorax: Diminished breath sounds at bases bilaterally, no rhonchi or rales identified, no wheezing, no chest wall crepitus or tenderness. Abdomen: Bowel sounds normal, soft, no tenderness, no rebound, rigidity, no guarding, no masses, no pulsatile masses. [] Skin: Warm, dry, no erythema, no rash. Abrasion of the right forehead as stated. [] Back: No midline tenderness, no step-offs or deformities, no CVA tenderness. [] Extremities: No tenderness, no cyanosis, no clubbing, ROM intact, no edema. [] Neurologic: Alert and oriented X 1, normal motor function, normal sensory function, no focal deficits noted. [] Psychologic: Affect normal, judgement normal, mood normal. [] Current Patient Data Vital Signs Vital Signs Date Time Temp Pulse Resp B/P Pulse Ox O2 Delivery O2 Flow Rate FiO2 07/15/16 22:50 97.7 99 17 140/99 95 Nasal Cannula 2 97.7 Lab Values Laboratory Tests Test 07/15/16 23:45 White Blood Count 7.5x10^3/uL (4.0-11.0) Red Blood Count 3.74x10^6/uL (4.30-5.70) L Hemoglobin 11.7g/dL (13.0-17.5) L Hematocrit 35.9% (39.0-53.0) L Mean Corpuscular Volume 96fL (79-100) Mean Corpuscular Hemoglobin 31pg (25-35) Mean Corpuscular Hemoglobin Concent 33g/dL (31-37) Red Cell Distribution Width 15.1% (11.5-14.5) H Platelet Count 382x10^3/uL (140-400) Neutrophils (%) (Auto) 66% (31-73) Lymphocytes (%) (Auto) 19% (24-48) L Monocytes (%) (Auto) 10% (0-9) H Eosinophils (%) (Auto) 4% (0-3) H Basophils (%) (Auto) 1% (0-3) Neutrophils # (Auto) 4.9x10^3uL (1.8-7.7) Lymphocytes # (Auto) 1.4x10^3/uL (1.0-4.8) Monocytes # (Auto) 0.7x10^3/uL (0.0-1.1) Eosinophils # (Auto) 0.3x10^3/uL (0.0-0.7) Basophils # (Auto) 0.1x10^3/uL (0.0-0.2) Prothrombin Time 15.6SEC (11.7-14.0) H Prothrombin Time INR 1.3 (0.8-1.1) H PTT 36SEC (24-38) Sodium Level 145mmol/L (136-145) Potassium Level 3.8mmol/L (3.5-5.1) Chloride Level 106mmol/L (98-107) Carbon Dioxide Level 29mmol/L (21-32) Anion Gap 10 (6-14) Blood Urea Nitrogen 12mg/dL (8-26) Creatinine 1.0mg/dL (0.7-1.3) Estimated GFR (Cockcroft-Gault) 71.2 BUN/Creatinine Ratio 12 (6-20) Glucose Level 95mg/dL (70-99) Calcium Level 9.1mg/dL (8.5-10.1) Total Bilirubin 0.5mg/dL (0.2-1.0) Aspartate Amino Transferase (AST) 23U/L (15-37) Alanine Aminotransferase (ALT) 15U/L (16-63) L Alkaline Phosphatase 153U/L (46-116) H Creatine Kinase 44U/L (39-308) Myoglobin 39ng/mL (16-96) Troponin I Quantitative < 0.017ng/mL (0.000-0.055) SZ-Mqe-H-Type Natriuretic Peptide 1544pg/mL (0-449) H Total Protein 7.2g/dL (6.4-8.2) Albumin 2.4g/dL (3.4-5.0) L Albumin/Globulin Ratio 0.5 (1.0-1.7) L Laboratory Tests 07/15/16 23:45 Laboratory Tests 07/15/16 23:45 EKG EKG EC: Irregular rhythm, atrial fibrillation, heart rate 103 bpm, QTC of 505 , QRS of 76, contour abnormalities noted in the anterior and septal leads, abnormal ECG, does not meet STEMI criteria. As interpreted by me. [] Radiology/Procedures Radiology/Procedures [] [facility] [address] [place] [address] IMAGING REPORT Signed PATIENT: NAVI SAWYER ACCOUNT: [id number] : 1930 LOCATION: ER AGE: 86 SEX: M EXAM STATUS: REG ER ORD. PHYSICIAN: MEGHNA MARTINEZ DO REASON: Syncope/fall PROCEDURE: HEAD AND CERVICAL SPINE WO CT head without contrast: Reason for examination: Syncopal episode with fall. Comparison is made to previous study dated 07/08/2016. Axial images were obtained through the brain. No contrast was administered. Ventricular systems are prominent but symmetric. There is prominence of the cerebral sulci and fissures consistent with some generalized cerebral atrophy. There is encephalomalacia present in the frontal lobes bilaterally consistent with chronic infarcts which has not changed. There is also some decreased density in the right occipital lobe consistent with infarct with some encephalomalacia which is unchanged. No new evidence of infarct, mass or edema is seen. No abnormalities are seen in the orbits. The paranasal sinuses and mastoid air cells are clear. No acute abnormalities seen in the skull. Impression: Chronic infarcts with areas of encephalomalacia bilaterally in the frontal lobe and in the right parietal lobe without interval change. No acute process evident. CT cervical spine without contrast: Helical images were obtained through the cervical spine from skullbase through the thoracic apices. Reconstruction was performed in sagittal and coronal planes. The C1 ring is intact. The odontoid process appears to be intact and normally centered between the lateral masses of C1. The cervical vertebral bodies are normally aligned anteriorly and posteriorly. No acute fracture or subluxation is evident. There are however degenerative changes from C4 through T1 with some hypertrophic spurring and disc space narrowing. Prevertebral soft tissues are normal. There does appear to be mild stenosis of the central canal at the C5-6 and C6-7 disc levels. Impression: No acute abnormality evident in the cervical spine. Degenerative spondylosis with mild stenosis centrally at the C5-6 and C6-7 disc levels. Exposure: One or more of the following individualized dose reduction techniques were used for this examination: 1. Automated exposure control. 2. Adjustment of the mA and/or kV according to patient size. 3. Use of iterative reconstruction technique. Electronically signed by: Anh Arndt MD (Jul 16, 2016 01:09:41) DICTATED and SIGNED BY: FRANCES ARNDT MD DATE: 07/16/16108 CC: PATRICK RIGGS MD; MEGHNA MARTINEZ DO ~ Chest x-ray: One view: Patient with continued right lower lobe effusion, with atelectasis noted, no fractures identified, no pneumothorax, no infiltrates. No change in cardiac silhouette. As interpreted by me. Course & Med Decision Making Course & Med Decision Making Pertinent Labs and Imaging studies reviewed. (See chart for details) Patient noted to be hypoxic upon arousing the ED, oxygen saturation between 89- 92% on room air, patient placed on 2 L nasal cannula, saturations on the mid 90s. Mildly tachycardic, heart rate in the low 100s. Tetanus was updated in the ED. Patient complaining of headache, pain where he has abrasion for head, also of neck pain, which appears to be chronic. He has no point tenderness, or signs of trauma, c-collar in place as stated. Imaging of the head and neck does not reveal any evidence of acutely concerning findings, degenerative changes noted in the neck. C-collar cleared without issue in the ED. is denying all complaints at this time, noted to be in atrial fibrillation, heart rate ranging from the low 100s, up to the 130s A. fib with RVR. Blood pressures 160s over 90s , labetalol ordered in the ED. Chest x-ray reveals persistent right-sided pleural effusion, with some atelectasis. Patient has no leukocytosis, no cough, no fever, at this time, will continue supportive measures, patient is resting comfortably. Review of records shows that the patient previously had been assessed by palliative medicine with plan for disposition to hospice. However, patient had been discharged to assisted living facility with plan for family to "speak to a dust mixer", prior to placing the patient on hospice. Patient is DNR. As stated patient is resting comfortably at this time, oxygen saturation stable at 100% on 2 L nasal cannula. At this time, will readmit for hypoxia, possible syncope, with fall. Will admit to of internal medicine, continue supportive measures as stated. Patient resting probably at time of disposition, bridge orders entered per discussion. Dragon Disclaimer Dragon Disclaimer This electronic medical record was generated, in whole or in part, using a voice recognition dictation system. Departure Impression: Primary Impression: Tachycardia Additional Impressions: Fall Syncope and collapse Disposition: ADMITTED INPATIENT Admitting Physician: Lucina Quinatna Condition: STABLE Problem Qualifiers MEGHNA MARTINEZ DO Jul 16, 2016 01:49
[2016-07-16] MEDS ORDERED: LABETALOL 20 MG/4 ML DISP.SYRIN. IVP PRN (02:00)
[2016-07-16] MEDS ORDERED: LABETALOL 20 MG/4 ML DISP.SYRIN. IVP ONE (02:00)
[2016-07-16 02:09] LABS: BILIRUBIN,URINE NEGATIVE (NEG); GLUCOSE,URINE NEGATIVE (NEG); NITRITE,URINE NEGATIVE (NEG); PH,URINE 6.5; PROTEIN,URINE NEGATIVE (NEG-TRACE); UROBILINOGEN,URINE 0.2 mg/dL (0.2 mg/dL)
--- NOTE | 2016-07-16 02:36 | ACF ---
Admission Forms Criteria CARDIOLOGY GRG Clinical Indications for Admission to Inpatient Care ( Place 'X' for any and all applicable criteria): Hospital admission is needed for appropriate care of the patient because of ANY ONE of the following (1): [ ] I. Hemodynamic instability as indicated by ALL of the following (1)(2)(3) (4)(5) [ ]a) Vital signs or other findings not as expected for chronic patient condition or baseline [ ]b) Instability indicated by ANY ONE of the following: [ ]i) Hypotension [ ]ii) Symptomatic Tachycardia unresponsive to treatment ( e.g., analgesia, fluids, sedation as indicated) [ ]iii) Inadequate perfusion indicated by ANY ONE of the following: [ ] 1) Lactic acidosis (> 2 mmol/L) [ ] 2) New abnormal capillary refill (> 3 seconds) [ ] 3) Reduced urine output [ ] 4) New altered mental status [ ]iv) Orthostatic vital sign changes unresponsive to treatment (e.g., fluids) [ ]v) IV inotropic or vasopressor medication required to maintain adequate blood pressure or perfusion [ ] II. Severe heart failure as indicated by ANY ONE of the following(17)(18) [ ]a) Respiratory distress [ ]b) Hypotension [ ]c) Anasarca (refractory to outpatient therapy) [ ]d) Cardiac arrhythmias of immediate concern [ ]e) Myocardial ischemia [ ] III. Cardiac arrhythmias or findings of immediate concern indicated by ANY ONE of the following (19)(20): [ ] a) Heart rhythms that are inherently dangerous or unstable indicated by ANY ONE of the following (21)(22)(23): [ ] i) Resuscitated ventricular fibrillation or cardiac arrest [ ] ii) Ventricular escape rhythm [ ] iii) Sustained ventricular tachycardia (30 seconds or more of ventricular rhythm at greater than 100 beats per minute) [ ] iv) Nonsustained ventricular tachycardia and ANY ONE of the following: [ ] 1) Suspected cardiac ischemia as cause or consequence of ventricular tachycardia [ ] 2) In setting of acute myocarditis [ ] b) Unstable cardiac conduction defects indicated by ANY ONE of the following(23)(24)(25) [ ] i) Type II second-degree atrioventricular block [ ]ii) Third-degree atrioventricular block [ ]iii) New-onset left bundle branch block with suspected myocardial ischemia [ ]c) Any heart rhythm and ANY ONE of the following (21)(22)(26)(27) (28) [ ] i) Continuous long-term ECG monitoring needed (e.g., initiation of drug requiring monitoring for more than 24 hours) [ ] ii) Patient has automatic implanted cardioverter defibrillator that is repeatedly firing, malfunctioning, or in need of immediate adjustment of settings beyond the scope of ambulatory or observation care [ ]d) Heart rhythms of concern due to ANY ONE of the following: [ ] i) Hypotension [ ] ii) Respiratory distress [ ] iii) Association with other significant symptoms (e.g., bradycardia with syncope or ongoing dizziness, supraventricular tachycardia with chest pain (14)(15)(17) [ ] IV. Monitoring for cardiac contusion beyond the scope of observation care needed [A](30)(31)(32) [ ] V. Surgical or device complication (e.g., valve replacement complication , pacemaker dysfunction) (35)(41)(44)(45)(46) [ ] . Inpatient palliative care needed. [B](49) Also use Inpatient Palliative Care Criteria [ ] VII. Nonbacterial thrombotic (marantic) endocarditis (36)(43)(47)(48) [X] VIII. Cardiology condition, symptom, or finding for which emergency and observation care has failed or are not considered appropriate. [ ] IX. Acute valvular disease requiring inpatient as indicated by ANY ONE of the following (41) [ ]a) Acute valvular regurgitation (42) [ ]b) Noninfectious valvulitis (43) [ ]c) Obstructive valve thrombosis [ ]d) Paravalvular leak [ ]e) Other significant valvular disorder remaining after emergency or observation level of care (as appropriate) [ ]X. Pericardial disease requiring inpatient treatment as indicated by ANY ONE of the following (33)(34)(35)(36)(37) [ ]a) Suspected tamponade (38)(39)(40) [ ]b) Hemopericardium [ ]c) Other significant pericardial disorder remaining after emergency or observation level of care (as appropriate) [ ] XI. Cardiac ischemia beyond scope of emergency and observation care. [ ] XII. Hypertension requiring inpatient treatment as indicated by ANY ONE of the following (6)(7)(8) [ ]a) SBP greater than 220 mm Hg or DBP greater than 120 mmHg despite treatment [ ]b) SBP greater than 140 mm Hg or DBP greater than 100 mm Hg with evidence of acute end organ damage as indicated by ANY ONE of the following [ ] i) Encephalopathy [ ] ii) Acute renal failure as indicated by new onset of ANY ONE of the following (9)(10)(11)(12)(13) [ ]1) 3-fold rise in serum creatinine from baseline [ ]2) Serum creatinine greater than 4 mg/dL ( 354 micromoles/L) with acute rise greater than 0.5 mg/dL (44.2 micromoles/L) [ ]3) Reduction of more than 75% in estimated glomerular filtration rate from baseline [ ]4) Estimated glomerular filtration rate less than 35 mL/min/1.73m2 (0.59 mL/sec/1.73m2) in child up to 18 years of age [ ]5) Cessation of urine output indicated by ALL of the following [ ]A. Adequate volume status [ ]B. Inadequate urine output as indicated by ANY ONE of the following [ ]a. Urine output less than 0.3 mL/kg/hr for 24 hours [ ]b. Anuria (urine output less than 0.1 mL/kg/hr) for 12 hours [ ] iii) Aortic dissection [ ] iv) Myocardial Ischemia [ ] v) Left ventricular heart failure [ ]vi) Retinal Hemorrhage [ ]vii) Other significant finding [ ]c) Hypertension in child requiring inpatient treatment as indicated by ALL of the following(14)(15)(16) [ ] i) Outpatient treatment not effective, not available, or not appropriate [ ]ii) SBP or DBP greater than 95th percentile for age [ ]iii) Evidence of acute end organ damage as indicated by ANY ONE of the following [ ]1) Altered mental status [ ]2) Acute renal failure as indicated by new onset of ANY ONE of the following(9)(10)(11)(12)(13) [ ]A. 3-fold rise in serum creatinine from baseline [ ]B. Serum creatinine greater than 4 mg/dL (354 micromoles/L) with acute rise greater than 0.5 mg/dL (44.2 micromoles/L) [ ]C. Reduction of more than 75% in estimated glomerular filtration rate from baseline [ ]D. Estimated glomerular filtration rate less than 35 mL/min/1.73m2 (0.59 mL/sec/1.73m2) in child up to 18 years of age [ ]E. Cessation of urine output indicated by ALL of the following [ ]a. Adequate volume status [ ]b. Inadequate urine output as indicated by ANY ONE of the following [ ]i) Urine output less than 0.3 mL/kg/hr for 24 hours [ ]ii) Anuria ( urine output less than 0.1 mL/kg/hr) for 12 hours [ ]3) Severe headache [ ]4) Visual disturbance [ ]5) Retinal hemorrhage [ ]6) Other significant finding [ ]XIII. Complications of transplanted heart indicated by ANY ONE of the following(61): [ ]a) Acute graft rejection requiring inpatient management (eg, intravenous immunosuppression)(62)(63) [ ]b) Acute graft heart failure indicated by ANY ONE of the following(64): [ ]i) Hemodynamic instability [ ]ii) Cardiac arrhythmias of immediate concern [ ]iii) Pulmonary edema that is very severe (eg, mechanical ventilation needed, imminent or likely, need for 100% oxygen to keep oxygen saturation above 90%) [ ]iv) Pulmonary edema that is persistent as indicated by ALL of the following: [ ]1) New need for oxygen therapy to keep oxygen saturation above 90% (or increased FiO2 need from baseline) [ ]2) Has not improved sufficiently with emergency department or observation care IV diuretics or other heart failure treatments[E] [ ]v) Altered mental status that is severe or persistent [ ]vi) Increased creatinine (new on laboratory test) with reduction of more than 50% in estimated glomerular filtration rate from baseline [ ]vii) Progressively (ongoing) rising creatinine (known from past laboratory test) with reduction of more than 25% in estimated glomerular filtration rate from baseline [ ]viii) Acute renal failure [ ]ix) Acute peripheral ischemia (eg, examination shows pulseless, cool, mottled, or cyanotic extremity) [ ]x) Pulmonary artery catheter monitoring needed [ ]xi) Other sign or symptom of heart failure requiring inpatient treatment (ie, too severe or not responsive to outpatient and observation care treatment) [ ]c) Infection requiring inpatient management (eg, Hemodynamic instability, need for intravenous antimicrobial treatment)(66)(67)(68)(69)(70) [ ]d) Cardiac allograft vasculopathy requiring inpatient management ( eg evidence of cardiac ischemia)(71) [ ]e) Other complication of transplanted heart (eg, stroke, severe pulmonary hypertension, severe valvular dysfunction) requiring inpatient management(72) The original [facility] content created by [facility] has been revised. The portions of the content which have been revised are identified through the use of italic text or in bold, and [facility] has neither reviewed nor approved the modified material. All other unmodified content is copyright [facility]. Please see references footnoted in the original [facility] edition 2016 KE TENORIO Jul 16, 2016 02:36
[2016-07-16 02:43] LABS: RBC,URINE OCC /HPF (0-2)
[2016-07-16 02:44] LABS: BACTERIA,URINE 0 /HPF (0-FEW); SQUAMOUS EPITHELIAL CELL,UR FEW /LPF
[2016-07-16] MEDS ORDERED: ACETAMINOPHEN 325 MG TABLET. PO PRN (02:45)
[2016-07-16 04:30] VITALS: BP 143/68
[2016-07-16 07:29] VITALS: BP 133/56
--- NOTE | 2016-07-16 08:11 | RAD ---
Indication syncopal episode. Protocol study. A single view of the chest was obtained and is compared to an examination one week earlier. Note is made of a CT examination of the chest 07/11/2016. Heart size is unchanged. There is no congestive heart failure. There is some increasing right pleural fluid relative to the previous plain film exam. A consolidated pneumonia is not seen. There is no pneumothorax. IMPRESSION: Right pleural effusion likely slightly larger than on the study one week earlier
[2016-07-16] MEDS ORDERED: HYDROCODONE/APAP 5/325MG TABLET. PO PRN (09:15)
[2016-07-16] MEDS ORDERED: ALPRAZOLAM 0.25 MG TABLET PO PRN (09:15)
[2016-07-16] MEDS ORDERED: CHOLECALCIFEROL (VITAMIN D3) 1,000 UNIT TABLET PO SCH (10:00)
[2016-07-16] MEDS ORDERED: TAMSULOSIN 0.4 MG CAP.ER.24H. PO SCH (10:00)
[2016-07-16] MEDS ORDERED: DOCUSATE SODIUM 100 MG CAPSULE PO SCH (10:00)
[2016-07-16] MEDS ORDERED: POTASSIUM CHLORIDE 10 MEQ TABLET.ER. PO SCH (10:00)
[2016-07-16] MEDS ORDERED: METOPROLOL TART IMMED RELEASE 50 MG TABLET PO SCH (10:00)
[2016-07-16] MEDS ORDERED: MEMANTINE 10 MG TABLET. PO SCH (10:00)
[2016-07-16] MEDS ORDERED: DONEPEZIL HCL 10 MG TABLET. PO SCH (10:00)
[2016-07-16] MEDS ORDERED: AMLODIPINE BESYLATE 5 MG TABLET PO SCH (10:00)
[2016-07-16] MEDS ORDERED: ESCITALOPRAM 10 MG TABLET. PO SCH (10:00)
[2016-07-16] MEDS ORDERED: TRIAMCINOLONE ACETONIDE 0.1% TOPICAL CREAM 15GM TUBE. TP SCH (10:00)
[2016-07-16] MEDS ORDERED: ASPIRIN ENTERIC COATED 81 MG TABLET.DR. PO SCH (10:00)
[2016-07-16] MEDS ORDERED: AMOXICILLIN/K CLAV 875/125MG TABLET. PO SCH (10:00)
[2016-07-16] MEDS ORDERED: FAMOTIDINE 20 MG TABLET. PO SCH (10:00)
[2016-07-16 10:25] VITALS: BP 130/79
--- NOTE | 2016-07-16 12:23 | PDOC ---
Provider Note Provider Note 23 hr admit and dc summ done. JOb # [id number] SOTERO FAJARDO MD Jul 16, 2016 12:23
[2016-07-16 14:29] VITALS: BP 132/74
--- NOTE | 2016-07-16 16:21 | SSS ---
ADMIT DATE: 07/16/2016 A 23-HOUR ADMIT AND DISCHARGE SUMMARY: CHIEF COMPLAINT: Sent by nursing staff from [facility] because of a fall. HISTORY OF PRESENT ILLNESS: The patient is an 86-year-old male who has dementia, was recently discharged by a colleague here just one day prior to admission. He was here from 07/08/2016 to 07/15/2016 for severe dehydration, decreased oral intake, failure to thrive symptoms, hypertension, AFib with RVR, neck pain, possibly neck spasm, severe dementia, dysphagia, on dysphagia 1 diet and honey-thickened, DJD of the neck and right-sided pleural effusion with no need for thoracentesis. He was sent to [facility]. He has been a resident there for 1-1/2 years. He was sent on p.o. Augmentin to complete for 4 more days; however, 6 hours staying there he fell, bruised his right forehead. CT of cervical spine and head CT, otherwise okay. Chest x-ray, the pleural effusion, which was evident on the last admission. There is no cardiopulmonary or respiratory compromise. CT of the head is likewise negative. Labs look okay at baseline. The patient is DNR. Family have been involved in the care. They are looking at hospice, but needs to settle some legal matters with a welder assistant first before deciding hospice. The patient was admitted because of a heart rate of 140, AFib at the Emergency Room and the head fall. Blood pressure and heart rate are now controlled here at the [facility]. He looks back at baseline. He can feed with the dysphagia diet, sometimes 50%, needing ____ 50% by his own. PAST MEDICAL HISTORY: Dementia, dysphagia, encephalopathy, dehydration, moderate PCM. PAST SURGICAL HISTORY: Nothing contributory. SOCIAL HISTORY: No smoking, no alcohol, no street drugs. Lives in [facility]. FAMILY HISTORY: Reviewed and noncontributory. REVIEW OF SYSTEMS: Limited because the patient has dementia. PHYSICAL EXAMINATION: GENERAL: Awake, alert, oriented to self and to person, which is his baseline, not to date or not to place. HEENT: Unremarkable. LUNGS: Decreased breath sounds especially on the right. HEART: Normal regular rate and rhythm. No murmurs, rubs or gallops. ABDOMEN: Soft, nontender, normoactive bowel sounds. GENITALIA: Appropriate for age. EXTREMITIES: Negative edema. Pulses full and equal. No pallor or cyanosis of nailbeds. ASSESSMENT AND PLAN: 1. Fall in retirement unit. 2. Atrial fibrillation, status post rapid ventricular response, now normal sinus rhythm. 3. Recent admission for severe dehydration. 4. Failure to thrive symptoms. 5. Severe dementia. 6. Dysphagia secondary to dementia, on dysphagia 1 diet and honey thickened. 7. Degenerative joint disease of the neck. 8. Neck spasm. PLAN OF CARE: The patient was admitted overnight without any intervention, just to continue home medications. Heart rate and blood pressure better. Heavy education and counseling about dementia and its consequences namely frequent falls, aspiration risk, etc., and the daughter who is involved in his care understands. The patient is a DNR. We did not start any new medications. Continue medications. Continue p.o. Augmentin, complete an additional 4-day course. DISCHARGE DISPOSITION: Back to [facility]. MEDICATIONS: Done JUN. HOSPITAL COURSE: Stayed overnight. No change in medications. Back to [facility]. DNR. The patient's family is looking to hospice once legal matters have been settled with the welder assistant. CONSULTS PERFORMED: None. PROCEDURES PERFORMED: None. SOTERO FAJARDO MD DR: /daniel JOB#: [id number] / [id number]
[2016-07-16] MEDS ORDERED: SERTRALINE 50 MG TABLET. PO SCH (21:00)
[2016-07-16] MEDS ORDERED: LACTOBACILLUS ACIDOPH & BULGAR 1 TABLET. PO SCH (21:00)
[2016-07-16] MEDS ORDERED: NON FORMULARY ITEM (Melatonin 3 MG) PO SCH (21:00)
--- NOTE | 2016-07-18 23:14 | ACF ---
Admission Forms Criteria TELEMETRY CARE Telemetry Admission Guidelines (Place 'X' for any and all applicable criteria): Admission to telemetry [A] may be indicated for ANY ONE of the following(1)(2)(3 )(4)(5): [X]I. Cardiac disease, including ANY ONE of the following (9)(10)(11)(12)(13 ): [ ]a) Postacute DC [ ]b) Low-risk patients with ST-segment elevation DC who have undergone successful percutaneous coronary intervention [ ]c) Unstable angina [ ]d) Suspected DC (until it is ruled out) [ ]e) Post cardiac surgery (first 48 to 72 hours unless complications occur) [X]f) Acute arrhythmias (including significant tachycardia or bradycardia) [B] [ ]g) Firing of an implantable cardioverter defibrillator [C] [ ]h) Suspected pacemaker or implantable cardioverter defibrillator malfunction (10) [ ]i) New administration or adjustment of an antiarrhythmic drug [D ] [ ]j) Child admitted for acute congestive heart failure [ ]j) Long QT syndrome [ ]k) Advanced heart block (eg, second-degree Mobitz type II, third- degree heart block) [ ]l) Acute myocarditis or pericarditis [ ]m) Short-term (ambulatory or inpatient) monitoring after a cardiac procedure as indicated by ANY ONE of the following [E]: [ ]i) Electrophysiologic studies [ ]ii) Percutaneous coronary intervention with stent placement [ ]iii) Pacemaker placement with cardiac conduction defect [ ]iv) Implantable cardiac defibrillator placement [ ]II. Drug overdose or poisoning with substance that causes arrhythmias or QT prolongation (eg, phenothiazines, sympathomimetic agents, cyclic antidepressants, digitalis, antiarrhythmic drugs)(15) [ ]III. Short-term (ambulatory or inpatient) monitoring after therapeutic or diagnostic procedure requiring conscious sedation or anesthesia (eg, endoscopy, elective cardioversion) [ ]IV. Acute cerebrovascular even[F](18) [ ]V. Massive blood transfusion (eg, at least 10 units of packed red blood cells in 24 hours) [ ]. Variceal bleeding after endoscopy, sclerotherapy, or IV vasopressin [ ]VII. Uncorrected electrolyte abnormalities associated with an increased risk of dangerous arrhythmia [G]; examples include [ ]a) Hyperkalemia with attributable ECG changes [ ]b) Potassium greater than 6.5 mmol/L (mEq/L) in a patient without history of chronic renal disease [ ]c) Prolonged QT attributed to hypokalemia, hypomagnesemia, or hypocalcemia [ ]VIII.Unexplained syncope or other neurologic event suspected of being due to arrhythmia due to a finding that increases risk; examples include(19)(20)(21): [ ]a) High-risk ECG findings (eg, bifascicular block, bradycardia, abnormal QT interval, ventricular pre- excitation) [ ]b) History of previous syncope due to arrhythmia [ ]c) Abnormal ventricular function (eg, reduced ejection fraction ) [ ]d) Exertional or supine syncope [ ]e) Concerning syncope characteristics (eg, sudden loss of consciousness without prodrome) [ ]f) Family history of sudden [ ]g) Use of arrhythmogenic medication [ ]h) Suspected cardiac ischemia [ ]i) Known channelopathy (eg, long QT syndrome, Brugada syndrome, or catecholaminergic paroxysmal ventricular tachycardia) [ ]j) Known structural heart disease (eg, hypertrophic cardiomyopathy , severe valvular disease) [ ]k) Palpitations preceding syncope The original [employer] content created by [employer] has been revised. The portions of the content which have been revised are identified through the use of italic text or in bold, and [employer] has neither reviewed nor approved the modified material. All other unmodified content is copyright [employer]. Please see references footnoted in the original [employer] edition 2016 KE TENORIO Jul 18, 2016 23:14
== END 2016-07-16 16:30 | disposition home or self-care (01) | DRG 309 ==
LOC: ER 22:42 → 2 NORTH 07-16 01:23
PROVIDERS: ADMIT Internal Medicine; ATTEND Internal Medicine
DX: I48.91 Unspecified atrial fibrillation (principal); E44.0 Moderate protein-calorie malnutrition; F03.90 Unspecified dementia, unspecified severity, without behavioral disturbance, psychotic disturbance, mood disturbance, and anxiety; I50.9 Heart failure, unspecified; R13.19 Other dysphagia; R62.7 Adult failure to thrive; Z66 Do not resuscitate; I11.0 Hypertensive heart disease with heart failure; E86.0 Dehydration; R13.10 Dysphagia, unspecified; R55 Syncope and collapse; M54.2 Cervicalgia; M47.812 Spondylosis without myelopathy or radiculopathy, cervical region
CPT/HCPCS: 36415; 70450; 71010; 72125; 80053; 81001; 82550; 83874; 83880; 84484; 85027; 85610; 85730; 87086; 90471; 90714; 93005; 96374; J3490; 99285-25

== ENCOUNTER 2016-07-31 21:38 | Emergency (ER) | payer MEDICARE ==
[~2016-07-31] VITALS: Ht 188 cm; Wt 83.5 kg
[2016-07-31 22:13] VITALS: BP 161/99
[2016-07-31] MEDS ORDERED: IV NORMAL SALINE 500ML BAG 500 ML IV ONE (22:15)
[2016-07-31 22:45] LABS: BILIRUBIN,URINE NEGATIVE (NEG); GLUCOSE,URINE NEGATIVE (NEG); NITRITE,URINE NEGATIVE (NEG); PH,URINE 5.5; PROTEIN,URINE NEGATIVE (NEG-TRACE); UROBILINOGEN,URINE 0.2 mg/dL (0.2 mg/dL)
[2016-07-31 22:50] LABS: BASO # 0.1 x10^3/uL (0.0-0.2); BASO % 1 % (0-3); EOS % 3 % (0-3); HEMATOCRIT 36.5 % (39.0-53.0); HEMOGLOBIN 11.9 g/dL (13.0-17.5); LYMPH # 2.1 x10^3/uL (1.0-4.8); LYMPH % 29 % (24-48); MEAN CORPUSCULAR HEMOGLOBIN 31 pg (25-35); MEAN CORPUSCULAR HGB CONC 33 g/dL (31-37); MEAN CORPUSCULAR VOLUME 96 fL (79-100); MONO % 15 % (0-9); NEUT % 53 % (31-73); PLATELET COUNT 232 x10^3/uL (140-400); RED BLOOD COUNT 3.81 x10^6/uL (4.30-5.70); RED CELL DISTRIBUTION WIDTH 15.8 % (11.5-14.5); WHITE BLOOD COUNT 7.2 x10^3/uL (4.0-11.0)
[2016-07-31 22:52] LABS: BACTERIA,URINE 0 /HPF (0-FEW); RBC,URINE 0 /HPF (0-2); WBC,URINE OCC /HPF (0-4)
[2016-07-31 23:00] LABS: INR 1.3 (0.8-1.1); PROTHROMBIN TIME PATIENT 15.1 SEC (11.7-14.0)
[2016-07-31 23:04] LABS: CALCIUM 8.7 mg/dL (8.5-10.1); CREATININE 1.2 mg/dL (0.7-1.3); GFR 57.7
[2016-07-31 23:09] LABS: ALBUMIN 3.1 g/dL (3.4-5.0); ALBUMIN/GLOBULIN RATIO 0.7 (1.0-1.7); TOTAL BILIRUBIN 0.4 mg/dL (0.2-1.0); TOTAL PROTEIN 7.5 g/dL (6.4-8.2)
--- NOTE | 2016-07-31 23:19 | RAD ---
INDICATION: Altered mental status COMPARISON: July 16, 2016 TECHNIQUE: Axial CT images obtained through the head. One or more of the following individualized dose reduction techniques were utilized for this examination: 1. Automated exposure control; 2. Adjustment of the mA and/or kV according to patient size; 3. Use of iterative reconstruction technique. FINDINGS: No midline shift. Ventricles and sulci are prominent. Basilar cistern patent. No gross hemorrhage or intracranial mass. No displaced skull fracture. Regions of low attenuation of the white matter. There is some regions of encephalomalacia seen bilaterally which could be from old stroke. IMPRESSION: No acute intracranial hemorrhage. Regions of low attenuation of the white matter. Nonspecific but frequently secondary to chronic small vessel ischemic disease. Electronically signed by: Iggy Luther (Jul 31, 2016 23:18:23)
--- NOTE | 2016-07-31 23:22 | PHYS DOC ---
Past Medical History Past Medical History: CHF, Dementia, Hypertension, Other Additional Past Medical Histor: tachycardia Past Surgical History: Other Additional Past Surgical Histo: COLOSTOMY -- unknown Alcohol Use: None Drug Use: None Adult General Chief Complaint Chief Complaint: ALTERED MENTAL STATUS HPI HPI 86-year-old male from nursing facility presents secondary to increased confusion as well as multiple falls today. According to care home report he did hit his head on one of the falls. They're unsure whether he is on blood thinners. He did not lose consciousness today. He is not had any fever chills or sweats. [] Review of Systems Review of Systems Review of systems is unobtainable secondary to dementia Current Medications Current Medications Current Medications Medications (Trade) Dose Ordered Sig/Delta Start Time Stop Time Status Last Admin Dose Admin Sodium Chloride (Iv Sodium Chloride 0.9% 500ml Bag) 500 ml @ 0 mls/hr 1X ONCE 07/31/16 22:15 07/31/16 22:16 DC 07/31/16 22:22 999 MLS/HR Allergies Allergies Allergies Coded Allergies Type Severity Reaction Last Updated Verified No Known Drug Allergies 07/08/16 No Physical Exam Physical Exam Constitutional: Well developed, well nourished, no acute distress, non-toxic appearance. [] HENT: Patient has ecchymosis and some swelling to his left temporal region from a recent fall, bilateral external ears normal, oropharynx moist, no oral exudates, nose normal. [] Eyes: PERRLA, EOMI, conjunctiva normal, no discharge. [] Neck: Normal range of motion, no tenderness, supple, no stridor. [] Cardiovascular:Heart rate regular rhythm, no murmur [] Lungs & Thorax: Bilateral breath sounds clear to auscultation [] Abdomen: Bowel sounds normal, soft, no tenderness, no masses, no pulsatile masses. [] Skin: Warm, dry, no erythema, no rash. [] Back: No tenderness, no CVA tenderness. [] Extremities: No tenderness, no cyanosis, no clubbing, ROM intact, no edema. [] Neurologic: Awake alert and interactive but confused, normal motor function, normal sensory function, no focal deficits noted. [] Psychologic unable to adequately assess. [] Current Patient Data Vital Signs Vital Signs Date Time Temp Pulse Resp B/P Pulse Ox O2 Delivery O2 Flow Rate FiO2 07/31/16 22:13 128 18 161/99 Room Air 07/31/16 21:38 98.0 98 98.0 Lab Values Laboratory Tests Test 07/31/16 22:38 07/31/16 22:42 Urine Collection Type Unknown Urine Color Yellow Urine Clarity Clear Urine pH 5.5 Urine Specific [place] <=1.005 Urine Protein Negativemg/dL (NEG-TRACE) Urine Glucose (UA) Negativemg/dL (NEG) Urine Ketones (Stick) Negativemg/dL (NEG) Urine Blood Negative (NEG) Urine Nitrite Negative (NEG) Urine Bilirubin Negative (NEG) Urine Urobilinogen Dipstick 0.2mg/dL (0.2 mg/dL) Urine Leukocyte Esterase Small (NEG) Urine RBC 0/HPF (0-2) Urine WBC Occ/HPF (0-4) Urine Bacteria 0/HPF (0-FEW) Urine Mucus Mod/LPF White Blood Count 7.2x10^3/uL (4.0-11.0) Red Blood Count 3.81x10^6/uL (4.30-5.70) L Hemoglobin 11.9g/dL (13.0-17.5) L Hematocrit 36.5% (39.0-53.0) L Mean Corpuscular Volume 96fL (79-100) Mean Corpuscular Hemoglobin 31pg (25-35) Mean Corpuscular Hemoglobin Concent 33g/dL (31-37) Red Cell Distribution Width 15.8% (11.5-14.5) H Platelet Count 232x10^3/uL (140-400) Neutrophils (%) (Auto) 53% (31-73) Lymphocytes (%) (Auto) 29% (24-48) Monocytes (%) (Auto) 15% (0-9) H Eosinophils (%) (Auto) 3% (0-3) Basophils (%) (Auto) 1% (0-3) Neutrophils # (Auto) 3.8x10^3uL (1.8-7.7) Lymphocytes # (Auto) 2.1x10^3/uL (1.0-4.8) Monocytes # (Auto) 1.1x10^3/uL (0.0-1.1) Eosinophils # (Auto) 0.2x10^3/uL (0.0-0.7) Basophils # (Auto) 0.1x10^3/uL (0.0-0.2) Prothrombin Time 15.1SEC (11.7-14.0) H Prothrombin Time INR 1.3 (0.8-1.1) H Sodium Level 145mmol/L (136-145) Potassium Level 4.0mmol/L (3.5-5.1) Chloride Level 107mmol/L (98-107) Carbon Dioxide Level 29mmol/L (21-32) Anion Gap 9 (6-14) Blood Urea Nitrogen 15mg/dL (8-26) Creatinine 1.2mg/dL (0.7-1.3) Estimated GFR (Cockcroft-Gault) 57.7 BUN/Creatinine Ratio 13 (6-20) Glucose Level 88mg/dL (70-99) Lactic Acid Level 1.4mmol/L (0.4-2.0) Calcium Level 8.7mg/dL (8.5-10.1) Total Bilirubin 0.4mg/dL (0.2-1.0) Aspartate Amino Transferase (AST) 18U/L (15-37) Alanine Aminotransferase (ALT) 14U/L (16-63) L Alkaline Phosphatase 104U/L (46-116) Troponin I Quantitative < 0.017ng/mL (0.000-0.055) Total Protein 7.5g/dL (6.4-8.2) Albumin 3.1g/dL (3.4-5.0) L Albumin/Globulin Ratio 0.7 (1.0-1.7) L Laboratory Tests 07/31/16 22:42 Laboratory Tests 07/31/16 22:42 EKG EKG [] Radiology/Procedures Radiology/Procedures [Chest x-ray: No obvious acute abnormality] Impressions: PROCEDURE: CT HEAD WO CONTRAST INDICATION: Altered mental status COMPARISON: July 16, 2016 TECHNIQUE: Axial CT images obtained through the head. One or more of the following individualized dose reduction techniques were utilized for this examination: 1. Automated exposure control; 2. Adjustment of the mA and/or kV according to patient size; 3. Use of iterative reconstruction technique. FINDINGS: No midline shift. Ventricles and sulci are prominent. Basilar cistern patent. No gross hemorrhage or intracranial mass. No displaced skull fracture. Regions of low attenuation of the white matter. There is some regions of encephalomalacia seen bilaterally which could be from old stroke. IMPRESSION: No acute intracranial hemorrhage. Regions of low attenuation of the white matter. Nonspecific but frequently secondary to chronic small vessel ischemic disease. Course & Med Decision Making Course & Med Decision Making Pertinent Labs and Imaging studies reviewed. (See chart for details) [ED course: Evaluation reveals an 86-year-old male with dementia. He did have a head contusion. Although he was confused he was pleasant very interactive and alert. His blood work and urinalysis did not show anything significantly concerning. I feel the patient is stable for discharge back to the nursing facility] Dragon Disclaimer Dragon Disclaimer This electronic medical record was generated, in whole or in part, using a voice recognition dictation system. Departure Departure Impression: Primary Impression: Confusion Additional Impressions: Multiple falls Head contusion Disposition: 01 HOME, SELF-CARE Condition: STABLE Referrals: PATRICK RIGGS MD (PCP) Problem Qualifiers Additional Impressions: Head contusion Encounter type: initial encounter Contusion of head detail: other part of head Qualified Code: S00.83XA - Contusion of other part of head, initial encounter ROSELINE MIMS DO Jul 31, 2016 23:22
--- NOTE | 2016-08-01 06:14 | EKG ---
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
--- NOTE | 2016-08-01 08:56 | RAD ---
AP portable chest radiograph 07/31/2016 Clinical History: Altered mental status. An AP portable erect digital radiograph of the chest was obtained. Comparison study is dated 07/15/2016. The cardiac silhouette is mildly enlarged. Atherosclerotic calcification of the thoracic aorta is seen. Prominence of the pulmonary vasculature and interstitial markings of both lungs is seen suggesting mild CHF. No area of consolidation is seen. No pneumothorax is noted. There may be minimal right pleural effusion. The osseous structures are unchanged. Impression: Findings suggesting mild CHF.
== END 2016-08-01 00:25 | disposition home or self-care (01) ==
LOC: ER 21:58
DX: S00.93XA Contusion of unspecified part of head, initial encounter (principal); R41.0 Disorientation, unspecified; R29.6 Repeated falls; Y99.8 Other external cause status; I11.0 Hypertensive heart disease with heart failure; I50.9 Heart failure, unspecified; F03.90 Unspecified dementia, unspecified severity, without behavioral disturbance, psychotic disturbance, mood disturbance, and anxiety; W18.09XA Striking against other object with subsequent fall, initial encounter; Y93.89 Activity, other specified; Y92.89 Other specified places as the place of occurrence of the external cause
CPT/HCPCS: 36415; 51702; 70450; 71010; 80053; 81001; 83605; 84484; 85027; 85610; 87040; 87086; 93005; 96360; 99285; J7040

== ENCOUNTER 2016-08-05 02:18 | Emergency (ER) | payer MEDICARE ==
[~2016-08-05] VITALS: Ht 182.9 cm; Wt 83.5 kg
[2016-08-05 02:47] VITALS: BP 154/101
--- NOTE | 2016-08-05 03:08 | PHYS DOC ---
Past Medical History Past Medical History: CHF, Dementia, Hypertension, Other Additional Past Medical Histor: tachycardia Past Surgical History: Other Additional Past Surgical Histo: COLOSTOMY -- unknown Alcohol Use: None Drug Use: None Adult General Chief Complaint Chief Complaint: MECHANICAL FALL HPI HPI Patient is a 86 year old gentleman who is transferred here from the nursing facility for evaluation of a possible fall. Per the snf records patient was placed in bed earlier this evening and then was found on the ground earlier this morning so was transferred for evaluation. Patient is on hospice care currently and he is comfort care only. While the patient was here the patient's hospice Advocate called us and requested that we restraint from doing anything that would cause the patient any discomfort or pain. They are requesting that we transfer him back if he is not having any acute issues that need to be addressed emergently tonight. According to the hospice Advocate the family is aware of this and this is her wishes. They feel that this would be the patient's wishes as well too. The remainder the patient's history is difficult to obtain secondary to his level of mentation. This appears to be at baseline per the hospice Advocate. Patient's physical exam is significant for patient being not very verbal and difficult to assess secondary to his mentation being depressed. Patient does respond to painful stimuli. Patient's left leg has some mild tenderness with range of motion. Patient's pelvis appears to be stable with no tenderness to palpation. ER course: Patient had an x-ray of his pelvis and left hip obtained which did not show any acute fracture. Per the family's wishes the patient will be transferred back to the nursing facility in stable condition. A/P #1 fall patient's clinically and hemodynamically stable without any acute fracture is currently visible. Per the family's wishes for do not wish anything aggressive. We will refrain from obtaining a CT scan of the head since it appears that the family would not want to intervene if there is any pathology found. Transferred back to his nursing facility for comfort care. We will refrain from placing the patient on the CAT scan table which could cause the patient some discomfort in light of the recent revelation that the patient is hospice and the family's wishes is comfort care only and to minimize any painful procedures we will refrain from CT scan and further imaging and we will discharge him back to the nursing facility in stable condition. Review of Systems Review of Systems Unable to assess secondary to patient's mental status and dementia. Allergies Allergies Allergies Coded Allergies Type Severity Reaction Last Updated Verified No Known Drug Allergies 07/08/16 No Physical Exam Physical Exam HENT: Normocephalic, atraumatic Neck: Normal range of motion, no tenderness, supple, no stridor. [] Cardiovascular:Heart rate regular rhythm, Lungs & Thorax: Bilateral breath sounds clear to auscultation [] Abdomen: Bowel sounds normal, colostomy in plce Skin: Warm, dry Extremities: Above. Neurologic: Difficult to assess Current Patient Data Vital Signs Vital Signs Date Time Temp Pulse Resp B/P Pulse Ox O2 Delivery O2 Flow Rate FiO2 08/05/16 02:47 97.5 115 22 154/101 94 Room Air 97.5 EKG EKG [] Radiology/Procedures Radiology/Procedures [] Course & Med Decision Making Course & Med Decision Making Pertinent Labs and Imaging studies reviewed. (See chart for details) [] Dragon Disclaimer Dragon Disclaimer This electronic medical record was generated, in whole or in part, using a voice recognition dictation system. Departure Departure Impression: Primary Impression: Fall Additional Impression: Hospice care Disposition: 05 TRANSFER OTHER Condition: STABLE Referrals: PATRICK RIGGS MD (PCP) Additional Instructions: Please return to the ER if you change your mind regarding wanting further evaluation or if he would like patient to longer be on hospice care. Per the hospice Advocate/family's wishes no aggressive measures were performed in the emergency department today. Problem Qualifiers IVÁN ANDREA MD Aug 05, 2016 03:08
--- NOTE | 2016-08-05 06:54 | EKG ---
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
--- NOTE | 2016-08-05 07:30 | RAD ---
Portable pelvis with left hip, 3 views, 08/05/2016: History: Hip pain The upper pelvis was not completely included on this exam. No fracture or dislocation is identified. The hip joint spaces are well-preserved with only minimal marginal spurring. IMPRESSION: No acute bony abnormality is detected.
== END 2016-08-05 03:36 | disposition short-term general hospital (02) ==
LOC: ER 02:18
DX: M25.552 Pain in left hip (principal); Z51.5 Encounter for palliative care; F03.90 Unspecified dementia, unspecified severity, without behavioral disturbance, psychotic disturbance, mood disturbance, and anxiety; W19.XXXA Unspecified fall, initial encounter; Y93.89 Activity, other specified; Y92.89 Other specified places as the place of occurrence of the external cause; Y99.8 Other external cause status
CPT/HCPCS: 73502; 93005; 99284-25